=== PATIENT | male | born 1960 | race Caucasian/White ===

== ENCOUNTER 2022-05-14 13:08 | Inpatient (IN) ==
[2022-05-14] MEDS ORDERED: IOPAMIDOL 100 ML BOTTLE IV ONE (13:09)
[2022-05-14] MEDS ORDERED: 0.9 % SODIUM CHLORIDE 500 ML IV ONE (17:39)
--- NOTE | 2022-05-14 17:51 | Emergency Department Note ---
Abdominal Pain HPI General Chief Complaint: Abdominal Pain Stated Complaint: Fluid in ABD Time Seen by Provider: 05/14/22 13:44 Source: patient and family Mode of arrival: wheelchair Limitations: no limitations History of Present Illness HPI Narrative: Narrative: 62-year-old male with past medical history of liver cirrhosis, ascites and as below presents with the chronic severe 9 / 10 dull to sharp, persistent to intermittent diffuse abdominal pain for few months. Patient has had been under the care of bail attacher nurse practitioner Yesy De Guzman who has been giving him furosemide and the spironolactone intermittently and had him get a paracentesis on April 09, 2022 by radiology. Patient stated the diuretics to help him little bit and and then his started to accumulate abdominal fluid after they were stopped. He has some headache and dizziness. No chest pain, nausea vomiting, diarrhea, fever or chills Related Data Home Medications Medication Instructions Recorded Confirmed meloxicam 15 mg tablet 15 mg PO QDAY 01/14/22 05/14/22 Previous Rx's Medication Instructions Recorded spironolactone 50 mg tablet 50 mg PO QDAY #10 tabs 05/07/22 duloxetine 30 mg capsule,delayed 30 mg PO BID #60 caps 05/11/22 release methocarbamol 750 mg tablet 750 mg PO Q8H PRN pain, moderate 05/11/22 #30 tabs oxycodone 5 mg tablet 5 mg PO TID pain 28 days #84 tabs 05/11/22 quetiapine 100 mg tablet 100 mg PO HS #30 tabs 05/11/22 Allergies Allergy/AdvReac Type Severity Reaction Status Date / Time amitriptyline Allergy Unknown sleepiness, Verified 05/11/22 10:55 tunnel vision Buspirone [From BuSpar] Allergy Unknown Seizure Verified 05/11/22 10:55 caffeine Allergy Unknown Anxiety Verified 05/11/22 10:55 prednisone [PREDNISONE] Allergy Unknown HIGH BP Verified 05/11/22 10:55 Review of Systems ROS ROS Narrative: Narrative: All systems ED: reviewed and negative except as stated. PFSH Narrative Patient History Narrative: Narrative: Medical/Surgical/Family History All Active Problems (Updated 05/15/22 @ 03:43 by Remy Amaro MD) Abdominal pain (Acute) Abdominal ascites (Acute) Colitis (Acute) Thrombocytopenia (Acute) Anemia, normocytic normochromic (Acute) Portal vein thrombosis (Acute) Colitis (Acute) SBP (spontaneous bacterial peritonitis) (Acute) Abdominal ascites (Acute) Radiculopathy of lumbar region (Acute) Syncope (Acute) Abdominal ascites (Acute) ALC (alcoholic liver cirrhosis) (Chronic) Cirrhosis of liver (Acute) Lumbar radiculopathy (Chronic) Cirrhosis of liver (Chronic) Anxiety about health (Chronic) Trauma (Chronic) Acute pancreatitis (Chronic) History of alcoholism (Chronic) Seizure (Chronic) Degeneration of lumbar intervertebral disc (Chronic) Degeneration of thoracolumbar intervertebral disc (Chronic) Degeneration of cervical intervertebral disc (Chronic) BPH (benign prostatic hyperplasia) (Chronic) Vitamin D deficiency (Chronic) DM (diabetes mellitus) (Chronic) Hyperlipidemia (Chronic) Bipolar disorder (Chronic) Other low back pain (Chronic) Cervical spondylitis with radiculitis (Chronic) Lumbar spondylosis (Chronic) Esophageal reflux (Chronic) PTSD (post-traumatic stress disorder) (Chronic) Chronic hepatitis C with cirrhosis (Chronic) Asthma (Chronic) Bronchitis (Chronic) Hypertension, portal (Chronic) Fall (Chronic) Lumbar back sprain (Chronic) Back pain (Chronic) Strain of lumbar region (Chronic) Atypical chest pain (Chronic) Hypertension (Chronic) Achalasia of esophagus (Chronic) Psychosocial distress (Chronic) Abrasions of multiple sites (Chronic) Contusion of buttock (Chronic) Cellulitis of left leg (Chronic) Sleep difficulties (Chronic) Chronic pain (Chronic) Sacroiliac pain (Chronic) Anxiety and depression (Chronic) [place] (hard of hearing) (Chronic) Poor eyesight (Chronic) Restless leg syndrome, uncontrolled (Chronic) Right kidney mass (Chronic) Medical History Abdominal pain Abrasions of multiple sites Achalasia of esophagus Acute pancreatitis Alcoholic cirrhosis of liver Anemia Anxiety about health Anxiety and depression Arthritis Asthma Atypical chest pain Back pain Bipolar disorder Blind BPH (benign prostatic hyperplasia) Bronchitis Cellulitis of left leg Cervical spondylitis with radiculitis Chronic hepatitis C with cirrhosis Chronic pain Cirrhosis of liver Contusion of buttock Deaf Degeneration of cervical intervertebral disc Degeneration of lumbar intervertebral disc Degeneration of thoracolumbar intervertebral disc DM (diabetes mellitus) Esophageal reflux Fall Hematuria History of alcoholism [place] (hard of hearing) Hyperlipidemia Hypertension Hypertension, portal Low back pain radiating to lower extremity Lumbar back sprain Lumbar radiculopathy Lumbar radiculopathy Lumbar spondylosis and Spondylostenosis Other low back pain Poor eyesight Psychosocial distress PTSD (post-traumatic stress disorder) Restless leg syndrome, uncontrolled Right kidney mass Sacroiliac pain Seizure Sleep difficulties Strain of lumbar region Trauma Vitamin D deficiency Surgical History History of cataract surgery History of exploratory laparotomy History of surgery 06/22 LESI #1 lt directed L 4-5 w/out sed (06-24-11) 09/22 LESI #2, L4-5 09/29/10 w/o sed 08/21 C7-T1 GREGG #1 (w/out sed) 09/07/1008/21 L4-5 GREGG #1 w/out sed (08-17-10) History of surgery of liver (~2006) Family History Father , Age 63 Heart disease HTN (hypertension) Mother , Age 61 Malignant tumor of ovary Grandmother Cancer Other Diabetes Heart attack Kidney stone Social History Smoking Status: Current every day smoker Alcohol Intake Frequency: holiday/special occasion only Substance Use: does not use Exam Narrative Narrative: Narrative: General Limitations: no limitations General appearance: Present alert and in no apparent distress Eye Eye: Present normal appearance Respiratory Respiratory: Present wheezes Cardiovascular Cardiovascular: Present regular rate, normal rhythm and normal heart sounds Adbominal Abdominal: Present soft, distention (with fluid waves), tenderness (diffuse more lower mid quadrant) and guarding; Absent rebound Extremities Extremities: Present pedal edema; Absent cyanosis or clubbing Neurological Neurological: Present alert and oriented X3 Course Course Course Narrative: BC, CMP, troponin, amylase, lipase, lactic acid, C-reactive protein UA, CT abdomen with contrast were ordered. Paracentesis under ultrasound guidance was ordered as discussed with radiologist Dr. Weaver. CT abdomen cell/pelvis co nsistent with [facility] NAME: Josue Calvin [address] [place] [address] : 1960 [address] Service Date: 05/14/22 Report # [id number] [place] [address] Edy Weaver M.D. MR #: [id number] Cat Scan Report Signed Ordering Physician:Remy Amaro M.D. Date of Service:05/14/22 Procedure(s):CT abdomen pelvis w con History: Cirrhosis, ascites, worsening abdominal pain TECHNIQUE:666 following injection of intravenous nonionic contrast the patient was scanned during the portal venous phase from above the diaphragm through the symphysis pubis. Sagittal and coronal reformats were created. The radiation exposure was limited using dose reduction technology. FINDINGS: There is a small layering left-sided pleural effusion. There is partial atelectasis in the basilar segments left lower lobe. The effusion is smaller than that seen on the prior CT done on 04/05/22. The previously seen right-sided pleural effusion and right lower lobe atelectasis have resolved. There is a small amount of residual ascites fluid throughout the abdomen. A paracentesis had been performed immediately preceding the CT scan a 2 L of fluid was removed. There are pockets of fluid in all four quadrants. The liver has a lobulated contour and there is hypertrophy of the caudate lobe due to cirrhosis. There is no evidence of a liver mass. Moderate splenomegaly is present. There are multiple varices, predominantly around the spleen. There is a moderate-sized nonocclusive thrombus in the splenic vein. This is a new finding since 04/05/22. The portal vein is patent. There is no evidence of pancreatitis. The adrenals are normal. There is a simple cyst in the right kidney. The kidneys are otherwise normal and there is no kidney stone or hydronephrosis. The aorta is normal in caliber and there few scattered plaques along the wall of the aorta. The gallbladder is normal and there are no stones or thickening of the wall. No abscess or free intraperitoneal air are present. There is asymmetric thickening of the wall of the cecum and proximal ascending colon. The wall measures up to 1.6 cm in thickness. There are no diverticula in this region. The remainder of the colon is relatively normal without evidence of diffuse colitis. There is no diverticulitis. There is diffuse mild to moderate thickening of the wall of the small bowel in the left side of the abdomen. This is a chronic stable finding and may be due to low serum albumin. This does not appear to be due to inflammatory bowel disease. Urinary bladder is normal. 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 The pattern is highly suggestive of colitis Dr. Amaro was called with the report Interpreted and Authenticated by: Edy Weaver 05/14/22 17 17 Microchip Specialist: <Electronically signed by Edy Weaver M.D. in OV> 05/14/222032 CC: Torin Rubin PA-C; Edy Weaver M.D.; Remy Amaro M.D.~ 2 L of fluid was aspirated with paracentesis. It was turbid and was sent to lab. Patient was given Rocephin 1 g IV. Patient will be admitted to medical surgical floor as discussed with hospitalist.Dr. JAY Vital Signs Vital signs: Vital Signs Temperature 98.0 F 05/14/22 13:11 Pulse Rate 79 05/14/22 13:11 Respiratory Rate 18 05/14/22 13:11 Blood Pressure 118/69 05/14/22 13:11 Pulse Oximetry (%) 97 05/14/22 13:11 Oxygen Delivery Method 05/14/22 13:11 Temperature 97.0 F 05/14/22 22:40 Pulse Rate 71 05/14/22 22:40 Respiratory Rate 16 05/14/22 22:40 Blood Pressure 146/85 05/14/22 22:40 Pulse Oximetry (%) 97 05/14/22 22:40 Oxygen Delivery Method 05/14/22 22:40 [facility] Narrative Medical decision making narrative: Narrative: Lab Data Result diagrams: 05/14/22 17:50 Labs: Lab Results 05/14/22 05/14/22 05/14/22 Range/Units 17:50 17:50 20:38 WBC 4.7 (4.5-11.0) K/mcL RBC 3.53 L (4.63-6.08) M/mcL Hgb 10.7 L (13.7-17.5) g/dL Hct 32.8 L (40.1-51.0) % POC Hct (41-55) MCV 92.9 (80.0-100.0) fL MCH 30.3 (26.0-34.0) pg MCHC 32.6 (31.0-36.0) g/dL RDW 17.5 H (11.5-14.5) % Plt Count 58 L (140-440) K/mcL MPV 12.6 H (7.4-10.4) fL Immature Gran % (Auto) 0.2 (0.0-0.5) % Neut % (Auto) 65.4 (38.0-78.0) % Lymph % (Auto) 15.9 (15.5-49.0) % Walsh % (Auto) 9.9 (1.0-12.0) % Eos % (Auto) 7.7 H (0.0-7.0) % Baso % (Auto) 0.9 (0.0-2.0) % Lymph # (Auto) 0.74 L (1.50-4.80) K/mcL Walsh # (Auto) 0.46 (0.10-0.90) K/mcL Eos # (Auto) 0.36 (0.00-0.70) K/mcL Baso # (Auto) 0.04 (0.00-0.30) K/mcL Immature Gran # 0.01 (0.00-0.05) K/mcl Absolute Neutrophils 3.04 (1.80-8.00) K/mcL VBG Lactic Acid 1.5 (0.5-2.0) mmol/L POC Sodium (133-145) POC Potassium (3.3-5.1) POC Chloride (96-108) POC Total CO2 (22-30) POC BUN (6-20) POC Creatinine (0.6-1.2) POC Glucose (70-105) POC WB Ioniz Calcium (1.16-1.32) C-Reactive Protein 1.70 H (0.03-0.80) mg/dL Amylase 87 (28-100) U/L Lipase 116 H (7-60) U/L Urine Color Yellow Urine Appearance Clear (Clear) Urine pH 5.5 (5.0-9.0) Ur Specific [place] 1.020 (1.000-1.035) Urine Protein 30 mg/dl A (Negative) mg/dL Urine Glucose (UA) Negative (Negative) mg/dL Urine Ketones Negative (Negative) mg/dL Urine Occult Blood Moderate A (Negative) trace/mcL Urine Nitrate Negative (Negative) Urine Bilirubin Negative (Negative) mg/dL Urine Urobilinogen Normal mg/dL Ur Leukocyte Esterase Negative (Negative) /uL Urine RBC 7 H (0-3) /hpf Urine WBC 1 (0-4) /hpf Ur Squamous Epith Cells < 1 (0-4) /hpf Urine Bacteria None (0) /hpf Urine Mucus Few A (None) /hpf Ur Culture Indicated? No Peritoneal Tot Protein gm/dL Peritoneal LDH U/L Peritoneal Glucose mg/dL 05/14/22 05/14/22 05/14/22 Range/Units 21:08 21:48 21:49 WBC (4.5-11.0) K/mcL RBC (4.63-6.08) M/mcL Hgb (13.7-17.5) g/dL Hct (40.1-51.0) % POC Hct 33.0 L (41-55) MCV (80.0-100.0) fL MCH (26.0-34.0) pg MCHC (31.0-36.0) g/dL RDW (11.5-14.5) % Plt Count (140-440) K/mcL MPV (7.4-10.4) fL Immature Gran % (Auto) (0.0-0.5) % Neut % (Auto) (38.0-78.0) % Lymph % (Auto) (15.5-49.0) % Walsh % (Auto) (1.0-12.0) % Eos % (Auto) (0.0-7.0) % Baso % (Auto) (0.0-2.0) % Lymph # (Auto) (1.50-4.80) K/mcL Walsh # (Auto) (0.10-0.90) K/mcL Eos # (Auto) (0.00-0.70) K/mcL Baso # (Auto) (0.00-0.30) K/mcL Immature Gran # (0.00-0.05) K/mcl Absolute Neutrophils (1.80-8.00) K/mcL VBG Lactic Acid (0.5-2.0) mmol/L POC Sodium 140 (133-145) POC Potassium 4.0 (3.3-5.1) POC Chloride 107 (96-108) POC Total CO2 22.0 (22-30) POC BUN 35 H (6-20) POC Creatinine 0.8 0.8 (0.6-1.2) POC Glucose 107 H (70-105) POC WB Ioniz Calcium 1.15 L (1.16-1.32) C-Reactive Protein (0.03-0.80) mg/dL Amylase (28-100) U/L Lipase (7-60) U/L Urine Color Urine Appearance (Clear) Urine pH (5.0-9.0) Ur Specific [place] (1.000-1.035) Urine Protein (Negative) mg/dL Urine Glucose (UA) (Negative) mg/dL Urine Ketones (Negative) mg/dL Urine Occult Blood (Negative) trace/mcL Urine Nitrate (Negative) Urine Bilirubin (Negative) mg/dL Urine Urobilinogen mg/dL Ur Leukocyte Esterase (Negative) /uL Urine RBC (0-3) /hpf Urine WBC (0-4) /hpf Ur Squamous Epith Cells (0-4) /hpf Urine Bacteria (0) /hpf Urine Mucus (None) /hpf Ur Culture Indicated? Peritoneal Tot Protein 0.9 gm/dL Peritoneal LDH 38 U/L Peritoneal Glucose 120 mg/dL Discharge Plan Patient/Caregiver Discharge Instructions Pt seen by ACCOUNTANT PROPERTY/PA only: No Clinical Impression: Abdominal pain, Abdominal ascites, Colitis Patient Disposition: Xfer As Inpt ([facility]) Discharge Date/Time: 05/14/22 22:40 Discharge Location: [facility]
[2022-05-14 18:49] LABS: Amylase 87 U/L (28-100)
--- NOTE | 2022-05-14 19:37 | Ultrasound Report ---
History: Abdominal pain, recurrent ascites TECHNIQUE: The procedure and risks were explained and the patient consented. A moderate amount of ascites fluid was localized in the abdomen. Largest pocket was seen in the right lateral abdomen. The overlying skin was prepped with ChloraPrep then anesthetized with 1% lidocaine. Using ultrasound guidance a multi sidehole drainage catheter was inserted. 2.0 L of cloudy yellow fluid was removed. Some of the fluid was sent to laboratory for analysis. He tolerated the procedure well without complication. There is a small amount of residual fluid present at the end of the exam. IMPRESSION: Successful paracentesis removing 2 L of cloudy fluid Interpreted and Authenticated by: Edy Weaver 05/14/22
[2022-05-14] MEDS ORDERED: ALBUMIN HUMAN 12.5 GM/50 ML BAG IV ONE (20:15)
--- NOTE | 2022-05-14 20:38 | Cat Scan Report ---
History: Cirrhosis, ascites, worsening abdominal pain TECHNIQUE:666 following injection of intravenous nonionic contrast the patient was scanned during the portal venous phase from above the diaphragm through the symphysis pubis. Sagittal and coronal reformats were created. The radiation exposure was limited using dose reduction technology. FINDINGS: There is a small layering left-sided pleural effusion. There is partial atelectasis in the basilar segments left lower lobe. The effusion is smaller than that seen on the prior CT done on 04/05/22. The previously seen right-sided pleural effusion and right lower lobe atelectasis have resolved. There is a small amount of residual ascites fluid throughout the abdomen. A paracentesis had been performed immediately preceding the CT scan a 2 L of fluid was removed. There are pockets of fluid in all four quadrants. The liver has a lobulated contour and there is hypertrophy of the caudate lobe due to cirrhosis. There is no evidence of a liver mass. Moderate splenomegaly is present. There are multiple varices, predominantly around the spleen. There is a moderate-sized nonocclusive thrombus in the splenic vein. This is a new finding since 04/05/22. The portal vein is patent. There is no evidence of pancreatitis. The adrenals are normal. There is a simple cyst in the right kidney. The kidneys are otherwise normal and there is no kidney stone or hydronephrosis. The aorta is normal in caliber and there few scattered plaques along the wall of the aorta. The gallbladder is normal and there are no stones or thickening of the wall. No abscess or free intraperitoneal air are present. There is asymmetric thickening of the wall of the cecum and proximal ascending colon. The wall measures up to 1.6 cm in thickness. There are no diverticula in this region. The remainder of the colon is relatively normal without evidence of diffuse colitis. There is no diverticulitis. There is diffuse mild to moderate thickening of the wall of the small bowel in the left side of the abdomen. This is a chronic stable finding and may be due to low serum albumin. This does not appear to be due to inflammatory bowel disease. Urinary bladder is normal. 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 The pattern is highly suggestive of colitis Dr. Amaro was called with the report Interpreted and Authenticated by: Edy Weaver 05/14/22
[2022-05-14 21:16] LABS: Appearance,Urine Clear (Clear); Bilirubin,Urine Negative (Negative); Color,Urine Yellow; Culture Indicated,Urine No; Glucose,Urine (UA) Negative (Negative); Ketones,Urine Negative (Negative); Leukocyte Esterase,Urine Negative /uL (Negative); Mucus,Urine FEW /hpf; Nitrate,Urine Negative (Negative); PH,Urine 5.5 (5.0-9.0); Urine Blood Moderate ery/mcL (Negative); Urine RBC 7 /hpf (0-3); Urine Squamous Epithelial Cell < 1 /hpf (0-4); Urine WBC 1 /hpf (0-4); Urobilinogen,Urine Normal
[2022-05-14 21:54] LABS: POC Calcium, Ionized 1.15 (1.16-1.32); POC Creatinine 0.8 (0.6-1.2)
[2022-05-14] MEDS ORDERED: HYDROmorphone 0.5 MG/0.5 ML SYRINGE IV ONE (21:55)
[2022-05-14 22:08] LABS: Basophils # (Auto) 0.04 K/mcL (0.00-0.30); Basophils % (Auto) 0.9 % (0.0-2.0); Eosinophils # (Auto) 0.36 K/mcL (0.00-0.70); Eosinophils % (Auto) 7.7 % (0.0-7.0); Hematocrit 32.8 % (40.1-51.0); Hemoglobin 10.7 g/dL (13.7-17.5); Lymphocytes # (Auto) 0.74 K/mcL (1.50-4.80); Lymphocytes % (Auto) 15.9 % (15.5-49.0); Mean Cell Volume 92.9 fL (80.0-100.0); Mean Corpuscular HGB Conc 32.6 g/dL (31.0-36.0); Mean Platelet Volume 12.6 fL (7.4-10.4); Monocytes # (Auto) 0.46 K/mcL (0.10-0.90); Monocytes % (Auto) 9.9 % (1.0-12.0); Neutrophils % (Auto) 65.4 % (38.0-78.0); Platelet Count 58 K/mcL (140-440); RBC 3.53 M/mcL (4.63-6.08); Red Cell Distribution Width 17.5 % (11.5-14.5); WBC 4.7 K/mcL (4.5-11.0)
--- NOTE | 2022-05-14 22:39 | Internal Med History&Physical ---
HPI History of Present Illness Patient information: Note initiated : 05/14/22 at 10:34 pm Service Date, if different from initiated Date: [] Patient: Josue Calvin 62 y/o M admitted on for Fluid in ABD. Chief Complaint: [abdominal pain and distension ] Chief complaint: abdominal pain and distension History of present illness: Mr. Calvin is a 62 year old M history of cirrhosis secondary to hepatitis C infections as well as alcoholism with associated ascites, depression with anxiety, presenting with abdominal distention and pain. He has been diagnosed with cirrhosis for years and he has been struggling with cirrhosis for the past 9 months. Last paracentesis was done in about a month ago at the end of the March this year. He presented to our ED today for worsening abdominal pain and distention. He is complain of 9 out of 10, kicking, constant abdominal pain mostly affecting his right upper quadrant and periumbilical region. He is complaining of associated nausea, vomiting, and decreased appetite. He denies any fever or chills. He denies any constipations or diarrhea. Status post therapeutic and diagnostic paracentesis with removal of 2 L of acetic fluid earlier this evening. Vital signs within normal limits. Labs significant for lack of leukocytosis with WBC 4.7. H&H 10.7 and 32.8, respectively. Creatinine 0.8. CT of the abdomen pelvis showing evidence of cecal and ascending colon 8 colitis as well as none occlusive thrombus in the portal vein. It also shows cirrhosis with splenomegaly and varices. Constitutional Constitutional: Present weakness; Absent chills, excessive sweating, fatigue or fever(s) EENT Eyes: Absent blurry vision, change in vision, loss of vision or other visual disturbances Ears: Absent decreased hearing or tinnitus Nose, mouth and throat: Absent abnormal hearing, dry mouth, headache(s), nasal congestion or sore throat Cardiovascular Cardiovascular: Absent chest pain, chest pain at rest, edema, irregular heart rhythm or palpatations Respiratory Respiratory: Absent cough, dyspnea or wheezing Gastrointestinal Gastrointestinal: Present abdominal pain, nausea and vomiting; Absent constipation or diarrhea Musculoskeletal Musculoskeletal: Absent back pain, deformity, limited range of motion, muscle cramps, muscle weakness or numbness Integumentary Integumentary: Absent lesions, rash or wounds Neurological Neurological: Absent focal weakness, headache(s) or numbness Psychiatric Psychiatric: Absent anxiety, depression or hallucinations PFSH PFSH All Active Problems (Updated 05/14/22 @ 22:46 by Seb Baca MD) Thrombocytopenia (Acute) Anemia, normocytic normochromic (Acute) Portal vein thrombosis (Acute) Colitis (Acute) SBP (spontaneous bacterial peritonitis) (Acute) Abdominal ascites (Acute) Radiculopathy of lumbar region (Acute) Syncope (Acute) Abdominal ascites (Acute) ALC (alcoholic liver cirrhosis) (Chronic) Cirrhosis of liver (Acute) Lumbar radiculopathy (Chronic) Cirrhosis of liver (Chronic) Anxiety about health (Chronic) Trauma (Chronic) Acute pancreatitis (Chronic) History of alcoholism (Chronic) Seizure (Chronic) Degeneration of lumbar intervertebral disc (Chronic) Degeneration of thoracolumbar intervertebral disc (Chronic) Degeneration of cervical intervertebral disc (Chronic) BPH (benign prostatic hyperplasia) (Chronic) Vitamin D deficiency (Chronic) DM (diabetes mellitus) (Chronic) Hyperlipidemia (Chronic) Bipolar disorder (Chronic) Other low back pain (Chronic) Cervical spondylitis with radiculitis (Chronic) Lumbar spondylosis (Chronic) Esophageal reflux (Chronic) PTSD (post-traumatic stress disorder) (Chronic) Chronic hepatitis C with cirrhosis (Chronic) Asthma (Chronic) Bronchitis (Chronic) Hypertension, portal (Chronic) Fall (Chronic) Lumbar back sprain (Chronic) Back pain (Chronic) Strain of lumbar region (Chronic) Atypical chest pain (Chronic) Hypertension (Chronic) Achalasia of esophagus (Chronic) Psychosocial distress (Chronic) Abrasions of multiple sites (Chronic) Contusion of buttock (Chronic) Cellulitis of left leg (Chronic) Sleep difficulties (Chronic) Chronic pain (Chronic) Sacroiliac pain (Chronic) Anxiety and depression (Chronic) [place] (Chronic) Poor eyesight (Chronic) Restless leg syndrome, uncontrolled (Chronic) Right kidney mass (Chronic) Medical History Abdominal pain Abrasions of multiple sites Achalasia of esophagus Acute pancreatitis Alcoholic cirrhosis of liver Anemia Anxiety about health Anxiety and depression Arthritis Asthma Atypical chest pain Back pain Bipolar disorder Blind BPH (benign prostatic hyperplasia) Bronchitis Cellulitis of left leg Cervical spondylitis with radiculitis Chronic hepatitis C with cirrhosis Chronic pain Cirrhosis of liver Contusion of buttock [place] Degeneration of cervical intervertebral disc Degeneration of lumbar intervertebral disc Degeneration of thoracolumbar intervertebral disc DM (diabetes mellitus) Esophageal reflux Fall Hematuria History of alcoholism [place]) Hyperlipidemia Hypertension Hypertension, portal Low back pain radiating to lower extremity Lumbar back sprain Lumbar radiculopathy Lumbar radiculopathy Lumbar spondylosis and Spondylostenosis Other low back pain Poor eyesight Psychosocial distress PTSD (post-traumatic stress disorder) Restless leg syndrome, uncontrolled Right kidney mass Sacroiliac pain Seizure Sleep difficulties Strain of lumbar region Trauma Vitamin D deficiency Surgical History History of cataract surgery History of exploratory laparotomy History of surgery 06/22 LESI #1 lt directed L 4-5 w/out sed (06-24-11) 09/22 LESI #2, L4-5 09/29/10 w/o sed 08/21 C7-T1 GREGG #1 (w/out sed) 09/07/1008/21 L4-5 GREGG #1 w/out sed (08-17-10) History of surgery of liver (~2006) Family History Father , Age 63 Heart disease HTN (hypertension) Mother , Age 61 Malignant tumor of ovary Grandmother Cancer Other Diabetes Heart attack Kidney stone Social History marital status: single education level: college occupational status: unemployed 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: Current every day smoker alcohol intake frequency: holiday/special occasion only substance use type: does not use seatbelt use: sometimes MEDS/ALLERGIES Home Medications and Allergies Home Medications Medication Instructions Recorded Confirmed Type meloxicam 15 mg tablet 15 mg PO QDAY 01/14/22 05/11/22 History furosemide 20 mg tablet 20 mg PO QAM #10 tabs 05/07/22 05/11/22 Rx lactulose 10 gram/15 mL oral 30 g (45 mL) PO BID #237 mL 05/07/22 05/11/22 Rx solution spironolactone 50 mg tablet 50 mg PO QDAY #10 tabs 05/07/22 05/11/22 Rx duloxetine 30 mg capsule,delayed 30 mg PO BID #60 caps 05/11/22 05/11/22 Rx release methocarbamol 750 mg tablet 750 mg PO Q8H PRN pain, moderate 05/11/22 05/11/22 Rx #30 tabs oxycodone 5 mg tablet 5 mg PO TID pain 28 days #84 tabs 05/11/22 05/11/22 Rx quetiapine 100 mg tablet 100 mg PO HS #30 tabs 05/11/22 Rx Allergies Allergy/AdvReac Type Severity Reaction Status Date / Time amitriptyline Allergy Unknown sleepiness, Verified 05/11/22 10:55 tunnel vision Buspirone [From BuSpar] Allergy Unknown Seizure Verified 05/11/22 10:55 caffeine Allergy Unknown Anxiety Verified 05/11/22 10:55 prednisone [PREDNISONE] Allergy Unknown HIGH BP Verified 05/11/22 10:55 EXAM Constitutional Vitals: Temp Pulse Resp BP Pulse Ox O2 Del Method 36.7 C 76 18 126/64 100 05/14/22 13:11 05/14/22 22:01 05/14/22 13:11 05/14/22 22:01 05/14/22 22:01 05/14/22 13:11 General appearance: cooperative, disheveled and no acute distress Head Head exam: Present atraumatic and normocephalic Eye Eye exam: Present EOMI and PERRL ENT ENT exam: Present mucous membranes moist, normal exam and normal external ear exam Neck Neck exam: Present normal inspection; Absent lymphadenopathy, tenderness or thyromegaly Respiratory Respiratory exam: Absent accessory muscle use, respiratory distress or wheezes Cardiovascular Cardiovascular exam: Present normal rate and rhythm; Absent JVD GI/Abdominal GI/Abdominal exam: Present normal bowel sounds, soft, distended, organomegaly and tenderness Additional comments: Caput medusae spider angiomata fluid wave tenderness to palpations distended abdomen Rectal Rectal exam: Present deferred Extremities Exam Extremities exam: Present full ROM, normal capillary refill and normal inspection; Absent tenderness Neurological Exam Neurological exam: Present alert, CN II-XII intact and oriented X3; Absent motor sensory deficit Psychiatric Psychiatric exam: Present normal affect and normal mood; Absent anxious or depressed Skin Skin exam: Present dry and intact Additional comments: Spider angiomata on face chest wall and abdominal wall DATA Data Completed and Pending Labs: Labs from last 24 hours 05/14/22 05/14/22 05/14/22 21:49 21:48 21:08 WBC RBC Hgb Hct POC Hct 33.0 L MCV MCH MCHC RDW Plt Count MPV Immature Gran % (Auto) Neut % (Auto) Lymph % (Auto) [place] % (Auto) Eos % (Auto) Baso % (Auto) Lymph # (Auto) [place] # (Auto) Eos # (Auto) Baso # (Auto) Immature Gran # Absolute Neutrophils VBG Lactic Acid POC Sodium 140 POC Potassium 4.0 POC Chloride 107 POC Total CO2 22.0 POC BUN 35 H POC Creatinine 0.8 0.8 POC Glucose 107 H POC WB Ioniz Calcium 1.15 L C-Reactive Protein Amylase Lipase Urine Color Urine Appearance Urine pH Ur Specific [place] Urine Protein Urine Glucose (UA) Urine Ketones Urine Occult Blood Urine Nitrate Urine Bilirubin Urine Urobilinogen Ur Leukocyte Esterase Urine RBC Urine WBC Ur Squamous Epith Cells Urine Bacteria Urine Mucus Ur Culture Indicated? Peritoneal Source Pending Peritoneal Color Pending Peritoneal Appearance Pending Peritoneal RBC Pending Periton Nuc Cells Pending Periton Neutrophils Pending Periton Lymphocytes Pending Peritoneal Monocytes Pending 05/14/22 05/14/22 05/14/22 20:38 17:50 17:50 WBC 4.7 RBC 3.53 L Hgb 10.7 L Hct 32.8 L POC Hct MCV 92.9 MCH 30.3 MCHC 32.6 RDW 17.5 H Plt Count 58 L MPV 12.6 H Immature Gran % (Auto) 0.2 Neut % (Auto) 65.4 Lymph % (Auto) 15.9 [place] % (Auto) 9.9 Eos % (Auto) 7.7 H Baso % (Auto) 0.9 Lymph # (Auto) 0.74 L [place] # (Auto) 0.46 Eos # (Auto) 0.36 Baso # (Auto) 0.04 Immature Gran # 0.01 Absolute Neutrophils 3.04 VBG Lactic Acid 1.5 POC Sodium POC Potassium POC Chloride POC Total CO2 POC BUN POC Creatinine POC Glucose POC WB Ioniz Calcium C-Reactive Protein 1.70 H Amylase 87 Lipase 116 H Urine Color Yellow Urine Appearance Clear Urine pH 5.5 Ur Specific [place] 1.020 Urine Protein 30 mg/dl A Urine Glucose (UA) Negative Urine Ketones Negative Urine Occult Blood Moderate A Urine Nitrate Negative Urine Bilirubin Negative Urine Urobilinogen Normal Ur Leukocyte Esterase Negative Urine RBC 7 H Urine WBC 1 Ur Squamous Epith Cells < 1 Urine Bacteria None Urine Mucus Few A Ur Culture Indicated? No Peritoneal Source Peritoneal Color Peritoneal Appearance Peritoneal RBC Periton Nuc Cells Periton Neutrophils Periton Lymphocytes Peritoneal Monocytes A/P Assessment and plan (1) SBP (spontaneous bacterial peritonitis): Status: Acute (2) Colitis: Status: Acute (3) Portal vein thrombosis: Status: Acute (4) Anxiety and depression: Status: Chronic (5) Anemia, normocytic normochromic: Status: Acute (6) Thrombocytopenia: Status: Acute Narrative A/P Narrative: Assessment and Plans: 1. Ascending colitis: Inpatient med surg Clear liquid diet Serial lactic acid Blood culture cbc w/ auto diff in the morning Rocephin Flagyl Tylenol Oxycodone Morphine IV Zofran IV 2. Viral and alcoholic cirrhosis with associated ascites, rule out spontaneous bacterial peritonitis: Status post therapeutic and diagnostic paracentesis with removal of 2 L of acetic fluid Fluid analysis including gram stain with culture, cell count and differential, albumin, protein, LDH, glucose Rocephin Tylenol Oxycodone Morphine IV Zofran IV Protonix Propranolol Lactulose MELD-Na scoring, will check INR 3. Nonocclusive portal vein thrombosis: Therapeutic Lovenox, will transition to oral anticoagulant later 4. Normocytic normochromic anemia and thrombocytopenia: Associated with cirrhosis CBC in the morning to trend H&H and platelet count, respectively 5. depression and anxiety: Duloxetine Quetiapine GI ppx: Protonix PO DVT ppx: Therapeutic Lovenox, will transition to oral anticoagulant later Code status: Full Prognosis: guarded Disposition: inpatient med surg; PT Time Spent With Patient Time: Total time spent is greater than 50% in coordination of care (as documented) at patient's floor/unit and/or counseling patient: Total time spent with greater than 50% in coordination of care (as documented) at patient's floor/unit and/or counseling patient:: 50 - 70 minutes
[2022-05-14] MEDS ORDERED: IPRATROPIUM/ALBUTEROL 3 ML AMPUL.NEB NEB PRN (22:46)
[2022-05-14] MEDS ORDERED: cefTRIAXone 1 GM in DEXTROSE 5% IN WATER 50 ML IV SCH (22:46)
[2022-05-14] MEDS ORDERED: metroNIDAZOLE 500 MG/100 ML BAG IV SCH (22:46)
[2022-05-14] MEDS ORDERED: ONDANSETRON 4 MG/2 ML VIAL IV PRN (22:46)
[2022-05-14] MEDS ORDERED: ACETAMINOPHEN 325 MG TABLET PO PRN (22:46)
[2022-05-14 23:20] LABS: POC INR 1.4 (0.8-1.2); POC Pro Time 16.3 (11.9-14.5)
[2022-05-14] MEDS: QUEtiapine 100 MG TABLET PO SCH (23:51)
[2022-05-14] MEDS ORDERED: cefTRIAXone 1 GM VIAL ONE (23:51)
[2022-05-14] MEDS: traZODone HCL 50 MG TABLET PO PRN (23:51)
[2022-05-14] MEDS ORDERED: metroNIDAZOLE 100 ML IV ONE (23:52)
[2022-05-14] MEDS ORDERED: QUEtiapine 100 MG TABLET ONE (23:57)
[2022-05-14] MEDS ORDERED: traZODone HCL 50 MG TABLET ONE (23:57)
[2022-05-15] MEDS: morphine 4 MG/ML VIAL IV PRN ×3 (00:01→18:34)
[2022-05-15] MEDS ORDERED: morphine 4 MG/ML VIAL ONE (00:11)
[2022-05-15 01:55] LABS: Glucose,Peritoneal Fluid 120 mg/dL; LDH,Peritoneal Fluid 38 U/L; Total Protein,Peritoneal Fluid 0.9 gm/dL
[2022-05-15] MEDS: 0.9 % SODIUM CHLORIDE 10 ML SYRINGE IV SCH ×3 (05:25→21:36)
[2022-05-15 06:47] LABS: Basophils # (Auto) 0.03 K/mcL (0.00-0.30); Basophils % (Auto) 0.9 % (0.0-2.0); Eosinophils # (Auto) 0.33 K/mcL (0.00-0.70); Eosinophils % (Auto) 10.1 % (0.0-7.0); Hematocrit 28.9 % (40.1-51.0); Hemoglobin 9.7 g/dL (13.7-17.5); Lymphocytes # (Auto) 0.84 K/mcL (1.50-4.80); Lymphocytes % (Auto) 25.8 % (15.5-49.0); Mean Cell Volume 91.7 fL (80.0-100.0); Mean Corpuscular HGB Conc 33.6 g/dL (31.0-36.0); Mean Platelet Volume 11.2 fL (7.4-10.4); Monocytes % (Auto) 9.2 % (1.0-12.0); Neutrophils % (Auto) 53.7 % (38.0-78.0); Platelet Count 51 K/mcL (140-440); RBC 3.15 M/mcL (4.63-6.08); Red Cell Distribution Width 17.2 % (11.5-14.5); WBC 3.3 K/mcL (4.5-11.0)
[2022-05-15 07:02] LABS: ALT/SGPT 29 U/L (<40); AST/SGOT 66 U/L (<40); Albumin 2.2 gm/dL (3.2-5.2); Albumin/Globulin Ratio 0.6 (1.0-2.3); Alkaline Phosphatase 104 U/L (39-117); Bilirubin,Total 1.4 mg/dL (0.1-1.0); Blood Urea Nitrogen 24 mg/dL (8-23); Calcium 8.2 mg/dL (8.6-10.4); Carbon Dioxide 21 mmol/L (22-30); Chloride 112 mmol/L (96-108); Globulin 3.4 gm/dL (2.2-3.7); Glomerular Filtration Rate 102; Glucose 95 mg/dL (70-105); Phosphorous 3.1 mg/dL (2.5-4.5)
[2022-05-15] MEDS ORDERED: ENOXAPARIN 40 MG/0.4 ML SYRINGE SQ SCH (09:00)
[2022-05-15] MEDS ORDERED: PROPRANOLOL 10 MG TABLET PO SCH (09:00)
[2022-05-15] MEDS: MELOXICAM 7.5 MG TABLET PO SCH (09:12)
[2022-05-15] MEDS: DOCUSATE SODIUM 100 MG CAPSULE PO SCH ×2 (09:13→21:30)
[2022-05-15] MEDS: DULoxetine 30 MG CAPSULE PO SCH ×2 (09:13→21:30)
[2022-05-15] MEDS: LACTULOSE 20 GM/30 ML ORAL.SOL PO SCH ×2 (09:13→21:31)
[2022-05-15] MEDS: metroNIDAZOLE 500 MG/100 ML BAG IV SCH ×2 (09:13→21:26)
[2022-05-15] MEDS: PANTOPRAZOLE 40 MG TABLET PO SCH (09:13)
[2022-05-15] MEDS: SPIRONOLACTONE 25 MG TABLET PO SCH (09:13)
[2022-05-15] MEDS: ENOXAPARIN 100 MG/ML SYRINGE SQ SCH ×2 (10:08→21:34)
[2022-05-15] MEDS: FUROSEMIDE 20 MG TABLET PO SCH (10:08)
[2022-05-15] MEDS: METHOCARBAMOL 750 MG TABLET PO PRN (10:08)
--- NOTE | 2022-05-15 10:22 | Internal Med Progress Note ---
SUBJECTIVE Subjective Patient information: Note initiated : 05/15/22 at 10:19 am Service Date, if different from initiated Date: [] Patient: Josue Calvin 62 y/o M admitted on 05/14/22 for Fluid in ABD. Chief Complaint: [] Interval history: Mr. Calvin is a 62 year old M history of cirrhosis secondary to hepatitis C infections as well as alcoholism with associated ascites, depression with anxiety, presenting with abdominal distention and pain. He has been diagnosed with cirrhosis for years and he has been struggling with cirrhosis for the past 9 months. Last paracentesis was done in about a month ago at the end of the March this year. He presented to our ED today for worsening abdominal pain and distention. He is complain of 9 out of 10, kicking, constant abdominal pain mostly affecting his right upper quadrant and periumbilical region. He is complaining of associated nausea, vomiting, and decreased appetite. He denies any fever or chills. He denies any constipations or diarrhea. Status post therapeutic and diagnostic paracentesis with removal of 2 L of acetic fluid earlier this evening. Vital signs within normal limits. Labs significant for lack of leukocytosis with WBC 4.7. H&H 10.7 and 32.8, respectively. Creatinine 0.8. CT of the abdomen pelvis showing evidence of cecal and ascending colon 8 colitis as well as none occlusive thrombus in the portal vein. It also shows cirrhosis with splenomegaly and varices. 05/15: Afebrile overnight. WBC 3.3 this morning. H&H 9.7 and 28.9, respectively. Pending ascites fluid analysis. Blood culture and ascitic fluid cultures no growth today. Patient is coming of 8 out of 10 kicking constant pain in all abdominal quadrants. He is complaining of nausea denies any vomiting. Denies constipation or diarrhea. Tolerating clear liquid diet. Continue clear liquid diet and will advance when patient feels ready. Continue IV antibiotics with Rocephin and Flagyl. Continue therapeutic dose of Lovenox for portal vein fibrosis. Constitutional Vitals: Vital Signs Temp Pulse Resp BP Pulse Ox O2 Del Method 36.6 C 66 18 102/52 96 05/15/22 08:00 05/15/22 08:00 05/15/22 08:00 05/15/22 08:00 05/15/22 08:00 05/15/22 08:00 Period Temp Pulse Resp BP Sys/Hodges Pulse Ox O2 Del Method O2 Flow Rate Last 24 Hr 36.1 C-36.7 C 66-79 16-18 92-179/52-100 93-100 Room Air-Room Air Intake and Output 05/14/22 05/15/22 05/15/22 21:59 05:59 13:59 Intake Total 550 150 Output Total 600 200 Balance 550 -450 -200 Weight 90.31 kg Intake & Output: Intake & Output 05/14/22 05/15/22 05/15/22 21:59 05:59 13:59 Intake Total 550 150 Output Total 600 200 Balance 550 -450 -200 Weight 90.31 kg Intake: IV 550 150 Sodium Chloride 0.9% 500 ml @ 500 Wide Open IV BOLUS ONE Rx#: [id number] Rocephin 1 gm In Dextrose 5% in 50 Water 50 ml @ 100 mls/hr IV Q24H [facility] Rx#:[id number] Output: Void Amount 600 200 Other: Urine Appearance Small Blood Clots Hematuria Urine Color Dark Yellow Dark Yellow Head Head exam: Present atraumatic and normal inspection Eye Eye exam: Present normal appearance ENT ENT exam: Present mucous membranes moist, normal exam and normal external ear exam Neck Neck exam: Present normal inspection Respiratory Respiratory exam: Present normal respiratory exam Cardiovascular Cardiovascular exam: Present normal rate and rhythm GI/Abdominal GI/Abdominal exam: Present normal bowel sounds Additional comments: Caput medusae spider angiomata fluid wave tenderness to palpations distended abdomen Rectal Back Exam Back exam: Present normal inspection Neurological Exam Neurological exam: Present alert and oriented X3 Skin Skin exam: Present intact and warm Additional comments: Spider angiomata on face chest wall and abdominal wall OBJ DATA Labs CBC & Chem 7: 05/15/22 05:37 05/15/22 05:37 Labs: Abnormal Lab Results 05/15/22 05/15/22 05/14/22 05:37 05:37 23:16 WBC 3.3 L RBC 3.15 L Hgb 9.7 L Hct 28.9 L POC Hct RDW 17.2 H Plt Count 51 L MPV 11.2 H Eos % (Auto) 10.1 H Lymph # (Auto) 0.84 L Absolute Neutrophils 1.75 L POC PT 16.3 H POC INR 1.4 H Chloride 112 H Carbon Dioxide 21 L Anion Gap 6.0 L POC BUN BUN 24 H POC Glucose Calcium 8.2 L POC WB Ioniz Calcium Total Bilirubin 1.4 H AST 66 H C-Reactive Protein Total Protein 5.6 L Albumin 2.2 L Albumin/Globulin Ratio 0.6 L Lipase Urine Protein Urine Occult Blood Urine RBC Urine Mucus 05/14/22 05/14/22 05/14/22 21:49 20:38 17:50 WBC RBC 3.53 L Hgb 10.7 L Hct 32.8 L POC Hct 33.0 L RDW 17.5 H Plt Count 58 L MPV 12.6 H Eos % (Auto) 7.7 H Lymph # (Auto) 0.74 L Absolute Neutrophils POC PT POC INR Chloride Carbon Dioxide Anion Gap POC BUN 35 H BUN POC Glucose 107 H Calcium POC WB Ioniz Calcium 1.15 L Total Bilirubin AST C-Reactive Protein Total Protein Albumin Albumin/Globulin Ratio Lipase Urine Protein 30 mg/dl A Urine Occult Blood Moderate A Urine RBC 7 H Urine Mucus Few A 05/14/22 17:50 WBC RBC Hgb Hct POC Hct RDW Plt Count MPV Eos % (Auto) Lymph # (Auto) Absolute Neutrophils POC PT POC INR Chloride Carbon Dioxide Anion Gap POC BUN BUN POC Glucose Calcium POC WB Ioniz Calcium Total Bilirubin AST C-Reactive Protein 1.70 H Total Protein Albumin Albumin/Globulin Ratio Lipase 116 H Urine Protein Urine Occult Blood Urine RBC Urine Mucus Meds: Medications Acetaminophen (Acetaminophen 325 Mg Tablet) 650 mg PO Q6HP PRN; Protocol PRN Reason: Per Pain Protocol/Fever > 101 Albuterol/Ipratropium (Ipratropium/Albuterol 3 Ml Ampul.Neb) 3 ml NEB Q4HRT PRN PRN Reason: Wheezing Ceftriaxone Sodium (Ceftriaxone 1 Gm Vial) 1 gm IV Q24H [facility] Docusate Sodium (Docusate Sodium 100 Mg Capsule) 100 mg PO BID [facility] Last Admin: 05/15/22 09:13 Dose: 100 mg Duloxetine HCl (Duloxetine 30 Mg Capsule) 30 mg PO BID [facility] Last Admin: 05/15/22 09:13 Dose: 30 mg Enoxaparin Sodium (Enoxaparin 100 Mg/Ml Syringe) 90 mg SQ BID [facility] Last Admin: 05/15/22 10:08 Dose: 90 mg Furosemide (Furosemide 20 Mg Tablet) 20 mg PO QAM [facility] Last Admin: 05/15/22 10:08 Dose: 20 mg Metronidazole (Flagyl) 500 mg in 100 mls @ 100 mls/hr IV Q12H [facility]; Protocol Last Admin: 05/15/22 09:13 Dose: 100 mls/hr Lactulose (Lactulose 20 Gm/30 Ml Oral.Sharon) 30 gm PO BID [facility] Last Admin: 05/15/22 09:13 Dose: 30 gm Meloxicam (Meloxicam 7.5 Mg Tablet) 15 mg PO DAILY [facility] Last Admin: 05/15/22 09:12 Dose: 15 mg Methocarbamol (Methocarbamol 750 Mg Tablet) 750 mg PO Q8H PRN PRN Reason: pain, moderate Last Admin: 05/15/22 10:08 Dose: 750 mg Morphine Sulfate (Morphine 4 Mg/Ml Vial) 4 mg IV Q4HP PRN; Protocol PRN Reason: Per Pain Protocol Last Admin: 05/15/22 00:01 Dose: 4 mg Ondansetron HCl (Ondansetron 4 Mg/2 Ml Vial) 4 mg IV Q6HP PRN PRN Reason: Nausea And Vomiting Oxycodone HCl (Oxycodone Hcl 5 Mg Tablet) 5 mg PO Q4HP PRN; Protocol PRN Reason: Per Pain Protocol Pantoprazole Sodium (Pantoprazole 40 Mg Tablet) 40 mg PO QAMAC [facility] Last Admin: 05/15/22 09:13 Dose: 40 mg Propranolol HCl (Propranolol 10 Mg Tablet) 10 mg PO TID [facility] Last Admin: 05/15/22 09:13 Dose: 10 mg Quetiapine Fumarate (Quetiapine 100 Mg Tablet) 100 mg PO [facility] Last Admin: 05/14/22 23:51 Dose: 100 mg Senna (Sennosides 1 Tablet) 2 tab PO [facility] Sodium Chloride (0.9 % Sodium Chloride 10 Ml Syringe) 10 ml IV Q8 [facility] Last Admin: 05/15/22 05:25 Dose: Not Given Spironolactone (Spironolactone 25 Mg Tablet) 50 mg PO DAILY [facility] Last Admin: 05/15/22 09:13 Dose: 50 mg Trazodone HCl (Trazodone Hcl 50 Mg Tablet) 25 mg PO HSP PRN PRN Reason: Insomnia Last Admin: 05/14/22 23:51 Dose: 25 mg A/P Assessment and plan (1) SBP (spontaneous bacterial peritonitis): Status: Acute (2) Colitis: Status: Acute (3) Portal vein thrombosis: Status: Acute (4) Anxiety and depression: Status: Chronic (5) Anemia, normocytic normochromic: Status: Acute (6) Thrombocytopenia: Status: Acute Narrative A/P Narrative: Assessment and Plans: 1. Ascending colitis: Inpatient med surg Clear liquid diet Serial lactic acid Blood culture, no growth to date cbc w/ auto diff in the morning Rocephin Flagyl Tylenol Oxycodone Morphine IV Zofran IV 2. Viral and alcoholic cirrhosis with associated ascites, rule out spontaneous bacterial peritonitis: Status post therapeutic and diagnostic paracentesis with removal of 2 L of gayla tic fluid Fluid analysis including gram stain with culture, cell count and differential, albumin, protein, LDH, glucose Rocephin Tylenol Oxycodone Morphine IV Zofran IV Protonix Propranolol Lactulose MELD-Na scoring, will check INR 3. Nonocclusive portal vein thrombosis: Therapeutic Lovenox, will transition to oral anticoagulant later 4. Normocytic normochromic anemia and thrombocytopenia: Associated with cirrhosis CBC in the morning to trend H&H and platelet count, respectively 5. depression and anxiety: Duloxetine Quetiapine GI ppx: Protonix PO DVT ppx: Therapeutic Lovenox, will transition to oral anticoagulant later Code status: Full Prognosis: guarded Disposition: inpatient med surg; PT Time Spent With Patient Time: Total time spent is greater than 50% in coordination of care (as documented) at patient's floor/unit and/or counseling patient: Total time spent with greater than 50% in coordination of care (as documented) at patient's floor/unit and/or counseling patient:: 25 - 35 minutes QUALITY VTE Deep Vein Thrombosis/Pulmonary Embolism Present on Admission: No
--- NOTE | 2022-05-15 12:12 | Internal Med Progress Note ---
SUBJECTIVE Subjective Patient information: Note initiated : 05/15/22 at 12:10 pm Service Date, if different from initiated Date: [] Patient: Josue Calvin 62 y/o M admitted on 05/14/22 for Fluid in ABD. Chief Complaint: [] Interval history: Mr. Calvin is a 62 year old M history of cirrhosis secondary to hepatitis C infections as well as alcoholism with associated ascites, depression with anxiety, presenting with abdominal distention and pain. He has been diagnosed with cirrhosis for years and he has been struggling with cirrhosis for the past 9 months. Last paracentesis was done in about a month ago at the end of the March this year. He presented to our ED today for worsening abdominal pain and distention. He is complain of 9 out of 10, kicking, constant abdominal pain mostly affecting his right upper quadrant and periumbilical region. He is complaining of associated nausea, vomiting, and decreased appetite. He denies any fever or chills. He denies any constipations or diarrhea. Status post therapeutic and diagnostic paracentesis with removal of 2 L of acetic fluid earlier this evening. Vital signs within normal limits. Labs significant for lack of leukocytosis with WBC 4.7. H&H 10.7 and 32.8, respectively. Creatinine 0.8. CT of the abdomen pelvis showing evidence of cecal and ascending colon 8 colitis as well as none occlusive thrombus in the portal vein. It also shows cirrhosis with splenomegaly and varices. 05/15: Afebrile overnight. WBC 3.3 this morning. H&H 9.7 and 28.9, respectively. Pending ascites fluid analysis. Blood culture and ascitic fluid cultures no growth today. Patient is coming of 8 out of 10 kicking constant pain in all abdominal quadrants. He is complaining of nausea denies any vomiting. Denies constipation or diarrhea. Tolerating clear liquid diet. Continue clear liquid diet and will advance when patient feels ready. Continue IV antibiotics with Rocephin and Flagyl. Continue therapeutic dose of Lovenox for portal vein fibrosis. 05/16: Abdominal pain present but the patient says this has improved since admission. Abdominal distention noted, may need another paracentesis soon. Recent ascites fluid analysis not yet complete, continues on ceftriaxone and Flagyl. Head: Atraumatic, normal inspection. Eyes: normal appearance, no scleral icterus. Neck: full ROM Respiratory: no respiratory distress. Cardiovascular: normal rate and rhythm, S1, S2. GI/Abdominal: Distended, mild diffuse tenderness, no guarding. Extremities: full range of motion, nontender. Neurological: CN II-XII intact, intact motor, intact sensation. Psychiatric: normal mood. Skin: warm, normal color Constitutional Vitals: Vital Signs Temp Pulse Resp BP Pulse Ox O2 Del Method 98.0 F 56 L 16 97/67 95 05/15/22 11:41 05/15/22 11:41 05/15/22 11:41 05/15/22 11:41 05/15/22 11:41 05/15/22 11:41 Period Temp Pulse Resp BP Sys/Hodges Pulse Ox O2 Del Method O2 Flow Rate Last 24 Hr 97.0 F-98.0 F 56-79 16-18 92-179/52-100 93-100 Room Air-Room Air Intake and Output 05/14/22 05/15/22 05/15/22 21:59 05:59 13:59 Intake Total 550 150 100 Output Total 600 500 Balance 550 -450 -400 Weight 90.31 kg Intake & Output: Intake & Output 05/14/22 05/15/22 05/15/22 21:59 05:59 13:59 Intake Total 550 150 100 Output Total 600 500 Balance 550 -450 -400 Weight 90.31 kg Intake: IV 550 150 100 Sodium Chloride 0.9% 500 ml @ 500 Wide Open IV [facility] Rx#: [id number] Rocephin 1 gm In Dextrose 5% in 50 Water 50 ml @ 100 mls/hr IV Q24H [facility] Rx#:[id number] Output: Void Amount 600 500 Other: Urine Appearance Small Blood Clots Hematuria Urine Color Dark Yellow Dark Yellow Stool Size Moderate Stool Consistency Normal for Patient OBJ DATA Labs CBC & Chem 7: 05/15/22 05:37 05/15/22 05:37 Labs: Abnormal Lab Results 05/15/22 05/15/22 05/14/22 05:37 05:37 23:16 WBC 3.3 L RBC 3.15 L Hgb 9.7 L Hct 28.9 L POC Hct RDW 17.2 H Plt Count 51 L MPV 11.2 H Eos % (Auto) 10.1 H Lymph # (Auto) 0.84 L Absolute Neutrophils 1.75 L POC PT 16.3 H POC INR 1.4 H Chloride 112 H Carbon Dioxide 21 L Anion Gap 6.0 L POC BUN BUN 24 H POC Glucose Calcium 8.2 L POC WB Ioniz Calcium Total Bilirubin 1.4 H AST 66 H C-Reactive Protein Total Protein 5.6 L Albumin 2.2 L Albumin/Globulin Ratio 0.6 L Lipase Urine Protein Urine Occult Blood Urine RBC Urine Mucus 05/14/22 05/14/22 05/14/22 21:49 20:38 17:50 WBC RBC 3.53 L Hgb 10.7 L Hct 32.8 L POC Hct 33.0 L RDW 17.5 H Plt Count 58 L MPV 12.6 H Eos % (Auto) 7.7 H Lymph # (Auto) 0.74 L Absolute Neutrophils POC PT POC INR Chloride Carbon Dioxide Anion Gap POC BUN 35 H BUN POC Glucose 107 H Calcium POC WB Ioniz Calcium 1.15 L Total Bilirubin AST C-Reactive Protein Total Protein Albumin Albumin/Globulin Ratio Lipase Urine Protein 30 mg/dl A Urine Occult Blood Moderate A Urine RBC 7 H Urine Mucus Few A 05/14/22 17:50 WBC RBC Hgb Hct POC Hct RDW Plt Count MPV Eos % (Auto) Lymph # (Auto) Absolute Neutrophils POC PT POC INR Chloride Carbon Dioxide Anion Gap POC BUN BUN POC Glucose Calcium POC WB Ioniz Calcium Total Bilirubin AST C-Reactive Protein 1.70 H Total Protein Albumin Albumin/Globulin Ratio Lipase 116 H Urine Protein Urine Occult Blood Urine RBC Urine Mucus Meds: Medications Acetaminophen (Acetaminophen 325 Mg Tablet) 650 mg PO Q6HP PRN; Protocol PRN Reason: Per Pain Protocol/Fever > 101 Albuterol/Ipratropium (Ipratropium/Albuterol 3 Ml Ampul.Neb) 3 ml NEB Q4HRT PRN PRN Reason: Wheezing Ceftriaxone Sodium (Ceftriaxone 1 Gm Vial) 1 gm IV Q24H [facility] [place] Docusate Sodium (Docusate Sodium 100 Mg Capsule) 100 mg PO BID [facility] Last Admin: 05/15/22 09:13 Dose: 100 mg Duloxetine HCl (Duloxetine 30 Mg Capsule) 30 mg PO BID [facility] [place] Last Admin: 05/15/22 09:13 Dose: 30 mg Enoxaparin Sodium (Enoxaparin 100 Mg/Ml Syringe) 90 mg SQ BID [facility] [place] Last Admin: 05/15/22 10:08 Dose: 90 mg Furosemide (Furosemide 20 Mg Tablet) 20 mg PO QAM [facility] [place] Last Admin: 05/15/22 10:08 Dose: 20 mg Metronidazole (Flagyl) 500 mg in 100 mls @ 100 mls/hr IV Q12H [facility] [place]; Protocol Last Infusion: 05/15/22 10:25 Dose: Infused Lactulose (Lactulose 20 Gm/30 Ml Oral.Sharon) 30 gm PO BID [facility] [place] Last Admin: 05/15/22 09:13 Dose: 30 gm Meloxicam (Meloxicam 7.5 Mg Tablet) 15 mg PO DAILY [facility] [place] Last Admin: 05/15/22 09:12 Dose: 15 mg Methocarbamol (Methocarbamol 750 Mg Tablet) 750 mg PO Q8H PRN PRN Reason: pain, moderate Last Admin: 05/15/22 10:08 Dose: 750 mg Morphine Sulfate (Morphine 4 Mg/Ml Vial) 4 mg IV Q4HP PRN; Protocol PRN Reason: Per Pain Protocol Last Admin: 05/15/22 00:01 Dose: 4 mg Ondansetron HCl (Ondansetron 4 Mg/2 Ml Vial) 4 mg IV Q6HP PRN PRN Reason: Nausea And Vomiting Oxycodone HCl (Oxycodone Hcl 5 Mg Tablet) 5 mg PO Q4HP PRN; Protocol PRN Reason: Per Pain Protocol Pantoprazole Sodium (Pantoprazole 40 Mg Tablet) 40 mg PO QAMAC [facility] [place] Last Admin: 05/15/22 09:13 Dose: 40 mg Propranolol HCl (Propranolol 10 Mg Tablet) 10 mg PO TID [facility] [place] Last Admin: 05/15/22 09:13 Dose: 10 mg Quetiapine Fumarate (Quetiapine 100 Mg Tablet) 100 mg PO [facility] Last Admin: 05/14/22 23:51 Dose: 100 mg Senna (Sennosides 1 Tablet) 2 tab PO [facility] Sodium Chloride (0.9 % Sodium Chloride 10 Ml Syringe) 10 ml IV Q8 [facility] Last Admin: 05/15/22 05:25 Dose: Not Given Spironolactone (Spironolactone 25 Mg Tablet) 50 mg PO DAILY [facility] [place] Last Admin: 05/15/22 09:13 Dose: 50 mg Trazodone HCl (Trazodone Hcl 50 Mg Tablet) 25 mg PO HSP PRN PRN Reason: Insomnia Last Admin: 05/14/22 23:51 Dose: 25 mg A/P Narrative A/P Narrative: Assessment: 62-year-old male with a history of liver cirrhosis, chronic hepatitis C infection, alcohol use disorder, depression, anxiety admitted for abdominal distention and pain. CT abdomen pelvis revealed evidence of colitis of the ascending colon and cecum as well as nonocclusive thrombus in the portal vein. Patient underwent a paracentesis, awaiting ascites fluid analysis. The patient is currently on antibiotics for possible bacterial peritonitis as well as colitis. Patient is also on Lovenox for anticoagulation for the portal vein thrombus. #Probable colitis of ascending colon and cecum #Possible bacterial peritonitis #Nonocclusive portal vein thrombus #Decompensated liver cirrhosis #Thrombocytopenia secondary to liver cirrhosis #Normocytic anemia #Chronic hepatitis C infection #History of alcohol use disorder #Depression #Anxiety Plan -Continue ceftriaxone and Flagyl. -Discontinue propranolol due to concern for bacterial peritonitis. -Await ascites fluid labs and culture. -Follow blood cultures. -Monitor renal function, CBC. -Check ammonia level. -Consider repeat CT scan if abdominal pain does not improve soon. -Paracentesis as needed. -Lovenox for portal vein thrombus anticoagulation, likely transition to oral anticoagulation soon. -Increase Lasix to 40 mg daily and spironolactone to 100 mg daily. -Continue Cymbalta, Protonix, Seroquel, trazodone at bedtime. -Analgesics as needed. -Clear liquid diet for now. -PT following. -DVT prophylaxis: On therapeutic Lovenox. -CODE STATUS: Full -Disposition: Home when stable. Likely 6 months of anticoagulation for portal vein thrombus. Follow-up with GI after discharge for management of decompensated liver cirrhosis, portal vein thrombosis and possible colonoscopy if not recently performed. Time Spent With Patient Time: Total time spent is greater than 50% in coordination of care (as documented) at patient's floor/unit and/or counseling patient: QUALITY VTE Deep Vein Thrombosis/Pulmonary Embolism Present on Admission: No
[2022-05-15] MEDS: cefTRIAXone 1 GM VIAL IV SCH (15:05)
[2022-05-15] MEDS: QUEtiapine 100 MG TABLET PO SCH (21:30)
[2022-05-15] MEDS: SENNOSIDES 1 TABLET PO SCH (21:30)
[2022-05-15] MEDS: traZODone HCL 50 MG TABLET PO PRN (21:39)
[2022-05-15] MEDS: oxyCODONE HCL 5 MG TABLET PO PRN (21:41)
[2022-05-16] MEDS: SPIRONOLACTONE 25 MG TABLET PO SCH (08:03)
[2022-05-16] MEDS: MELOXICAM 7.5 MG TABLET PO SCH (08:04)
[2022-05-16] MEDS: cefTRIAXone 1 GM VIAL IV SCH (08:04)
[2022-05-16] MEDS: DOCUSATE SODIUM 100 MG CAPSULE PO SCH ×3 (08:04→21:12)
[2022-05-16] MEDS: ENOXAPARIN 100 MG/ML SYRINGE SQ SCH ×2 (08:04→21:11)
[2022-05-16] MEDS: metroNIDAZOLE 500 MG/100 ML BAG IV SCH ×3 (08:05→21:11)
[2022-05-16] MEDS: 0.9 % SODIUM CHLORIDE 10 ML SYRINGE IV SCH ×3 (08:06→21:12)
[2022-05-16] MEDS: LACTULOSE 20 GM/30 ML ORAL.SOL PO SCH ×3 (08:06→21:12)
[2022-05-16] MEDS: PANTOPRAZOLE 40 MG TABLET PO SCH (08:06)
[2022-05-16] MEDS: FUROSEMIDE 20 MG TABLET PO SCH (08:07)
[2022-05-16] MEDS: DULoxetine 30 MG CAPSULE PO SCH ×2 (08:07→21:11)
[2022-05-16] MEDS: METHOCARBAMOL 750 MG TABLET PO PRN (08:31)
[2022-05-16] MEDS: oxyCODONE HCL 5 MG TABLET PO PRN (11:56)
[2022-05-16] MEDS ORDERED: cefTRIAXone 1 GM VIAL IV SCH (14:30)
[2022-05-16] MEDS: morphine 4 MG/ML VIAL IV PRN ×2 (17:22→21:20)
[2022-05-16] MEDS: traZODone HCL 50 MG TABLET PO PRN (21:11)
[2022-05-16] MEDS: QUEtiapine 100 MG TABLET PO SCH (21:11)
[2022-05-16] MEDS: SENNOSIDES 1 TABLET PO SCH (21:12)
[2022-05-17] MEDS: 0.9 % SODIUM CHLORIDE 10 ML SYRINGE IV SCH ×3 (05:31→22:06)
[2022-05-17] MEDS: metroNIDAZOLE 500 MG/100 ML BAG IV SCH ×3 (05:31→22:06)
[2022-05-17] MEDS: morphine 4 MG/ML VIAL IV PRN ×4 (05:55→20:04)
[2022-05-17 06:05] LABS: Basophils # (Auto) 0.03 K/mcL (0.00-0.30); Eosinophils # (Auto) 0.29 K/mcL (0.00-0.70); Eosinophils % (Auto) 10.1 % (0.0-7.0); Hematocrit 28.9 % (40.1-51.0); Hemoglobin 9.4 g/dL (13.7-17.5); Lymphocytes # (Auto) 0.81 K/mcL (1.50-4.80); Lymphocytes % (Auto) 28.3 % (15.5-49.0); Mean Cell Volume 92.9 fL (80.0-100.0); Mean Corpuscular HGB Conc 32.5 g/dL (31.0-36.0); Mean Platelet Volume 12.1 fL (7.4-10.4); Monocytes # (Auto) 0.23 K/mcL (0.10-0.90); Neutrophils % (Auto) 52.3 % (38.0-78.0); Platelet Count 50 K/mcL (140-440); RBC 3.11 M/mcL (4.63-6.08); Red Cell Distribution Width 16.9 % (11.5-14.5); WBC 2.9 K/mcL (4.5-11.0)
[2022-05-17 06:21] LABS: ALT/SGPT 35 U/L (<40); AST/SGOT 81 U/L (<40); Albumin/Globulin Ratio 0.6 (1.0-2.3); Alkaline Phosphatase 88 U/L (39-117); Bilirubin,Direct 0.6 mg/dL (<0.3); Bilirubin,Total 1.5 mg/dL (0.1-1.0); Blood Urea Nitrogen 24 mg/dL (8-23); Calcium 7.9 mg/dL (8.6-10.4); Carbon Dioxide 22 mmol/L (22-30); Chloride 110 mmol/L (96-108); Globulin 3.4 gm/dL (2.2-3.7); Glomerular Filtration Rate 92; Glucose 92 mg/dL (70-105); Lactate Dehydrogenase 140 U/L (135-225); Phosphorous 3.9 mg/dL (2.5-4.5); Triglycerides 53 mg/dL (<150); Uric Acid 7.5 mg/dL (2.5-8.0)
[2022-05-17] MEDS: DOCUSATE SODIUM 100 MG CAPSULE PO SCH (07:57)
[2022-05-17] MEDS: LACTULOSE 20 GM/30 ML ORAL.SOL PO SCH (07:57)
[2022-05-17] MEDS: FUROSEMIDE 20 MG TABLET PO SCH (07:57)
[2022-05-17] MEDS: DULoxetine 30 MG CAPSULE PO SCH ×2 (07:57→20:42)
[2022-05-17] MEDS: MELOXICAM 7.5 MG TABLET PO SCH (07:57)
[2022-05-17] MEDS: SPIRONOLACTONE 25 MG TABLET PO SCH (07:57)
[2022-05-17] MEDS: PANTOPRAZOLE 40 MG TABLET PO SCH (07:58)
[2022-05-17] MEDS: ENOXAPARIN 100 MG/ML SYRINGE SQ SCH ×2 (07:58→20:42)
[2022-05-17] MEDS: cefTRIAXone 2 GM in DEXTROSE 5% IN WATER 50 ML IV SCH (09:58)
[2022-05-17] MEDS ORDERED: LACTULOSE 20 GM/30 ML ORAL.SOL PO PRN (11:09)
--- NOTE | 2022-05-17 13:10 | Cat Scan Report ---
CLINICAL INFORMATION: abdominal pain. History of cirrhosis COMPARISON: Abdomen and pelvic CT 09/19/2017 and 2021. TECHNIQUE: 0.625 mm helical slices were obtained from the mid heart through the subtrochanteric regions. Following reconstruction, 2.5 mm sagittal, coronal and axial reformatted images were processed and reviewed at bone and soft tissue windows.The exam was performed using radiation dose optimization techniques including, but not limited to, automated exposure control, adjustment of the mA and/or kV according to patient size and use of iterative reconstruction technique. FINDINGS: Small left and tiny right pleural effusion show slight worsening. There is subsegmental atelectasis in the posterior lower lobes which is unchanged. The visualized heart is grossly normal. Abdominal images show mild diffuse wall thickening of the gallbladder is likely related to cirrhosis. The common bile duct is normal caliber-7 mm. The liver is decreased in size with asymmetric enlargement of the caudate lobe, inhomogeneous attenuation cortical irregularity all compatible with cirrhosis. Portal vein is mildly enlarged in diameter 19 mm. There are stable varices in the perigastric and perisplenic region and moderate splenomegaly. The lesion that Both kidneys show small bilateral cysts but no significant abnormality. Both noncontrasted adrenal glands, pancreas and aorta are normal. Moderate simple ascites throughout the abdomen and pelvis as increased considerably since the comparison CT is three days prior. No free air or adenopathy Pelvic images show urinary bladder, prostate and seminal vesicles to be normal. Few sigmoid diverticula appreciated, but no evidence of diverticulitis. The remaining large bowel, retrocecal appendix, small bowel and stomach are grossly normal on today's exam Bone windows show no osseous abnormality IMPRESSION: Moderate cirrhosis with portal hypertension featuring mild dilatation of the portal vein with splenic and gastric vein varices. There is also moderate splenomegaly and moderate ascites. Volume of simple ascites as increased considerably since comparison CT three days prior. History of portal vein thrombus is acknowledged. Status of the thrombus cannot be consider Doppler assessed without use of intravenous contrast. Small bilateral renal cysts-stable Small left and tiny right pleural effusion-slight worsening. Interpreted and Authenticated by: King Pires 05/17/22
--- NOTE | 2022-05-17 13:39 | Internal Med Progress Note ---
SUBJECTIVE Subjective Patient information: Note initiated : 05/17/22 at 1:37 pm Service Date, if different from initiated Date: [] Patient: Josue Calvin 62 y/o M admitted on 05/14/22 for Fluid in ABD. Chief Complaint: [] Interval history: Mr. Calvin is a 62 year old M history of cirrhosis secondary to hepatitis C infections as well as alcoholism with associated ascites, depression with anxiety, presenting with abdominal distention and pain. He has been diagnosed with cirrhosis for years and he has been struggling with cirrhosis for the past 9 months. Last paracentesis was done in about a month ago at the end of the March this year. He presented to our ED today for worsening abdominal pain and distention. He is complain of 9 out of 10, kicking, constant abdominal pain mostly affecting his right upper quadrant and periumbilical region. He is complaining of associated nausea, vomiting, and decreased appetite. He denies any fever or chills. He denies any constipations or diarrhea. Status post therapeutic and diagnostic paracentesis with removal of 2 L of acetic fluid earlier this evening. Vital signs within normal limits. Labs significant for lack of leukocytosis with WBC 4.7. H&H 10.7 and 32.8, respectively. Creatinine 0.8. CT of the abdomen pelvis showing evidence of cecal and ascending colon 8 colitis as well as none occlusive thrombus in the portal vein. It also shows cirrhosis with splenomegaly and varices. 05/15: Afebrile overnight. WBC 3.3 this morning. H&H 9.7 and 28.9, respectively. Pending ascites fluid analysis. Blood culture and ascitic fluid cultures no growth today. Patient is coming of 8 out of 10 kicking constant pain in all abdominal quadrants. He is complaining of nausea denies any vomiting. Denies constipation or diarrhea. Tolerating clear liquid diet. Continue clear liquid diet and will advance when patient feels ready. Continue IV antibiotics with Rocephin and Flagyl. Continue therapeutic dose of Lovenox for portal vein fibrosis. 05/16: Abdominal pain present but the patient says this has improved since admission. Abdominal distention noted, may need another paracentesis soon. Recent ascites fluid analysis not yet complete, continues on ceftriaxone and Flagyl. 05/17: Vital stable overnight, persistent abdominal discomfort, will repeat CT abdomen pelvis today. Ascites fluid analysis not yet complete. The patient is also having liquidy stool in the setting of colitis will obtain a C. difficile screen. Continues on Lovenox for anticoagulation, likely transition to DOAC soon for portal vein thrombus anticoagulation. Head: Atraumatic, normal inspection. Eyes: normal appearance, no scleral icterus. Neck: full ROM Respiratory: no respiratory distress. Cardiovascular: normal rate and rhythm, S1, S2. GI/Abdominal: Distended, mild diffuse tenderness, no guarding. Extremities: full range of motion, nontender. Neurological: CN II-XII intact, intact motor, intact sensation. Psychiatric: normal mood. Skin: warm, normal color Constitutional Vitals: Vital Signs Temp Pulse Resp BP Pulse Ox O2 Del Method 97.2 F 62 18 105/63 96 05/17/22 11:58 05/17/22 11:58 05/17/22 11:58 05/17/22 11:58 05/17/22 11:58 05/17/22 11:58 Period Temp Pulse Resp BP Sys/Hodges Pulse Ox O2 Del Method O2 Flow Rate Last 24 Hr 97.2 F-99.1 F 60-72 16-20 87-124/50-75 93-96 Room Air-Room Air Intake and Output 05/16/22 05/17/22 05/17/22 21:59 05:59 13:59 Intake Total 340 220 150 Output Total 150 Balance 340 220 0 Weight 92.306 kg Intake & Output: Intake & Output 05/16/22 05/17/22 05/17/22 21:59 05:59 13:59 Intake Total 340 220 150 Output Total 150 Balance 340 220 0 Weight 92.306 kg Intake: IV 100 100 150 Rocephin 2 gm In Dextrose 5% in 50 Water 50 ml @ 100 mls/hr IV Q24H [facility] Rx#:[id number] Oral 240 120 Output: Void Amount 150 Other: Meal Lunch Percent of Meal Consumed 50% Feeding Ability Independent Urine Color Dark Yellow Stool Size Large Stool Consistency Loose # Voids 4 1 # Bowel Movements 2 OBJ DATA Labs CBC & Chem 7: 05/17/22 05:13 05/17/22 05:13 Labs: Abnormal Lab Results 05/17/22 05/17/22 05/15/22 05:13 05:13 05:37 WBC 2.9 L RBC 3.11 L Hgb 9.4 L Hct 28.9 L POC Hct RDW 16.9 H Plt Count 50 L MPV 12.1 H Eos % (Auto) 10.1 H Lymph # (Auto) 0.81 L Absolute Neutrophils 1.49 L POC PT POC INR Chloride 110 H 112 H Carbon Dioxide 21 L Anion Gap 7.0 L 6.0 L POC BUN BUN 24 H 24 H POC Glucose Calcium 7.9 L 8.2 L POC WB Ioniz Calcium Total Bilirubin 1.5 H 1.4 H Direct Bilirubin 0.6 H GGT 80 H AST 81 H 66 H C-Reactive Protein Total Protein 5.4 L 5.6 L Albumin 2.0 L 2.2 L Albumin/Globulin Ratio 0.6 L 0.6 L Lipase Urine Protein Urine Occult Blood Urine RBC Urine Mucus 05/15/22 05/14/22 05/14/22 05:37 23:16 21:49 WBC 3.3 L RBC 3.15 L Hgb 9.7 L Hct 28.9 L POC Hct 33.0 L RDW 17.2 H Plt Count 51 L MPV 11.2 H Eos % (Auto) 10.1 H Lymph # (Auto) 0.84 L Absolute Neutrophils 1.75 L POC PT 16.3 H POC INR 1.4 H Chloride Carbon Dioxide Anion Gap POC BUN 35 H BUN POC Glucose 107 H Calcium POC WB Ioniz Calcium 1.15 L Total Bilirubin Direct Bilirubin GGT AST C-Reactive Protein Total Protein Albumin Albumin/Globulin Ratio Lipase Urine Protein Urine Occult Blood Urine RBC Urine Mucus 05/14/22 05/14/22 05/14/22 20:38 17:50 17:50 WBC RBC 3.53 L Hgb 10.7 L Hct 32.8 L POC Hct RDW 17.5 H Plt Count 58 L MPV 12.6 H Eos % (Auto) 7.7 H Lymph # (Auto) 0.74 L Absolute Neutrophils POC PT POC INR Chloride Carbon Dioxide Anion Gap POC BUN BUN POC Glucose Calcium POC WB Ioniz Calcium Total Bilirubin Direct Bilirubin GGT AST C-Reactive Protein 1.70 H Total Protein Albumin Albumin/Globulin Ratio Lipase 116 H Urine Protein 30 mg/dl A Urine Occult Blood Moderate A Urine RBC 7 H Urine Mucus Few A Meds: Medications Acetaminophen (Acetaminophen 325 Mg Tablet) 650 mg PO Q6HP PRN; Protocol PRN Reason: Per Pain Protocol/Fever > 101 Albuterol/Ipratropium (Ipratropium/Albuterol 3 Ml Ampul.Neb) 3 ml NEB Q4HRT PRN PRN Reason: Wheezing Duloxetine HCl (Duloxetine 30 Mg Capsule) 30 mg PO BID [facility] Last Admin: 05/17/22 07:57 Dose: 30 mg Enoxaparin Sodium (Enoxaparin 100 Mg/Ml Syringe) 90 mg SQ BID [facility] Last Admin: 05/17/22 07:58 Dose: 90 mg Furosemide (Furosemide 20 Mg Tablet) 40 mg PO QAM [facility] Last Admin: 05/17/22 07:57 Dose: 40 mg Metronidazole (Flagyl) 500 mg in 100 mls @ 100 mls/hr IV Q8 [facility]; Protocol Last Infusion: 05/17/22 07:11 Dose: Infused Ceftriaxone Sodium 2 gm/ (Dextrose) 50 mls @ 100 mls/hr IV Q24H [facility] Last Infusion: 05/17/22 10:48 Dose: Infused Lactulose (Lactulose 20 Gm/30 Ml Oral.Sharon) 30 gm PO DAILY [facility] Lactulose (Lactulose 20 Gm/30 Ml Oral.Sharon) 20 gm PO QID PRN PRN Reason: other Meloxicam (Meloxicam 7.5 Mg Tablet) 15 mg PO DAILY [facility] Last Admin: 05/17/22 07:57 Dose: 15 mg Methocarbamol (Methocarbamol 750 Mg Tablet) 750 mg PO Q8H PRN PRN Reason: pain, moderate Last Admin: 05/16/22 08:31 Dose: 750 mg Morphine Sulfate (Morphine 4 Mg/Ml Vial) 4 mg IV Q4HP PRN; Protocol PRN Reason: Per Pain Protocol Last Admin: 05/17/22 10:08 Dose: 4 mg Ondansetron HCl (Ondansetron 4 Mg/2 Ml Vial) 4 mg IV Q6HP PRN PRN Reason: Nausea And Vomiting Oxycodone HCl (Oxycodone Hcl 5 Mg Tablet) 5 mg PO Q4HP PRN; Protocol PRN Reason: Per Pain Protocol Last Admin: 05/16/22 11:56 Dose: 5 mg Pantoprazole Sodium (Pantoprazole 40 Mg Tablet) 40 mg PO QAMAC [facility] Last Admin: 05/17/22 07:58 Dose: 40 mg Quetiapine Fumarate (Quetiapine 100 Mg Tablet) 100 mg PO HS [facility] Last Admin: 09/04/22 21:11 Dose: 100 mg Sodium Chloride (0.9 % Sodium Chloride 10 Ml Syringe) 10 ml IV Q8 [facility] Last Admin: 05/17/22 05:31 Dose: 10 ml Spironolactone (Spironolactone 25 Mg Tablet) 100 mg PO DAILY [facility] Last Admin: 05/17/22 07:57 Dose: 100 mg Trazodone HCl (Trazodone Hcl 50 Mg Tablet) 25 mg PO HSP PRN PRN Reason: Insomnia Last Admin: 05/16/22 21:11 Dose: 25 mg A/P Narrative A/P Narrative: Assessment: 62-year-old male with a history of liver cirrhosis, chronic hepatitis C infection, alcohol use disorder, depression, anxiety admitted for abdominal distention and pain. CT abdomen pelvis revealed evidence of colitis of the ascending colon and cecum as well as nonocclusive thrombus in the portal vein. Patient underwent a paracentesis, awaiting ascites fluid analysis. The patient is currently on antibiotics for possible bacterial peritonitis as well as colitis. Patient is also on Lovenox for anticoagulation for the portal vein thrombus. #Probable colitis of ascending colon and cecum #Possible bacterial peritonitis #Nonocclusive portal vein thrombus #Decompensated liver cirrhosis #Thrombocytopenia secondary to liver cirrhosis #Normocytic anemia #Chronic hepatitis C infection #History of alcohol use disorder #Depression #Anxiety Plan -Continue ceftriaxone and Flagyl. -Discontinue propranolol due to concern for bacterial peritonitis. -Await ascites fluid labs and culture. -Follow blood cultures. -Monitor renal function, CBC. -Check ammonia level. -Consider repeat CT scan if abdominal pain does not improve soon. -Paracentesis as needed. -Lovenox for portal vein thrombus anticoagulation, likely transition to oral anticoagulation soon. -Continue Lasix to 40 mg daily and spironolactone to 100 mg daily. -Continue Cymbalta, Protonix, Seroquel, trazodone at bedtime. -Analgesics as needed. -GI soft diet. -PT following. -DVT prophylaxis: On therapeutic Lovenox. -CODE STATUS: Full -Disposition: Home when stable. Likely 6 months of anticoagulation for portal vein thrombus. Follow-up with GI after discharge for management of decompensated liver cirrhosis, portal vein thrombosis and possible colonoscopy if not recently performed. Time Spent With Patient Time: Total time spent is greater than 50% in coordination of care (as documented) at patient's floor/unit and/or counseling patient: QUALITY VTE Deep Vein Thrombosis/Pulmonary Embolism Present on Admission: No
[2022-05-17] MEDS: QUEtiapine 100 MG TABLET PO SCH (20:42)
[2022-05-17] MEDS: METHOCARBAMOL 750 MG TABLET PO PRN (20:48)
[2022-05-17] MEDS: oxyCODONE HCL 5 MG TABLET PO PRN (20:49)
[2022-05-18] MEDS: morphine 4 MG/ML VIAL IV PRN ×4 (04:12→23:13)
[2022-05-18] MEDS: 0.9 % SODIUM CHLORIDE 10 ML SYRINGE IV SCH ×3 (05:59→21:08)
[2022-05-18] MEDS: metroNIDAZOLE 500 MG/100 ML BAG IV SCH (06:00)
[2022-05-18] MEDS: cefTRIAXone 2 GM in DEXTROSE 5% IN WATER 50 ML IV SCH (08:23)
[2022-05-18] MEDS: FUROSEMIDE 20 MG TABLET PO SCH (08:23)
[2022-05-18] MEDS: ENOXAPARIN 100 MG/ML SYRINGE SQ SCH (08:23)
[2022-05-18] MEDS: SPIRONOLACTONE 25 MG TABLET PO SCH (08:24)
[2022-05-18] MEDS: LACTULOSE 20 GM/30 ML ORAL.SOL PO SCH (08:24)
[2022-05-18] MEDS: PANTOPRAZOLE 40 MG TABLET PO SCH (08:24)
[2022-05-18] MEDS: MELOXICAM 7.5 MG TABLET PO SCH (08:24)
[2022-05-18] MEDS: DULoxetine 30 MG CAPSULE PO SCH ×2 (08:24→21:07)
[2022-05-18 09:00] LABS: Basophils # (Auto) 0.02 K/mcL (0.00-0.30); Basophils % (Auto) 0.8 % (0.0-2.0); Eosinophils # (Auto) 0.26 K/mcL (0.00-0.70); Eosinophils % (Auto) 10.9 % (0.0-7.0); Hematocrit 31.1 % (40.1-51.0); Hemoglobin 10.1 g/dL (13.7-17.5); Lymphocytes # (Auto) 0.65 K/mcL (1.50-4.80); Lymphocytes % (Auto) 27.2 % (15.5-49.0); Mean Corpuscular HGB Conc 32.5 g/dL (31.0-36.0); Mean Platelet Volume 12.4 fL (7.4-10.4); Monocytes # (Auto) 0.12 K/mcL (0.10-0.90); Neutrophils % (Auto) 55.7 % (38.0-78.0); Platelet Count 54 K/mcL (140-440); RBC 3.31 M/mcL (4.63-6.08); Red Cell Distribution Width 16.7 % (11.5-14.5); WBC 2.4 K/mcL (4.5-11.0)
[2022-05-18 09:25] LABS: ALT/SGPT 47 U/L (<40); AST/SGOT 113 U/L (<40); Albumin 2.1 gm/dL (3.2-5.2); Albumin/Globulin Ratio 0.6 (1.0-2.3); Alkaline Phosphatase 100 U/L (39-117); Bilirubin,Direct 0.4 mg/dL (<0.3); Blood Urea Nitrogen 22 mg/dL (8-23); Calcium 7.9 mg/dL (8.6-10.4); Carbon Dioxide 23 mmol/L (22-30); Chloride 109 mmol/L (96-108); Globulin 3.8 gm/dL (2.2-3.7); Glomerular Filtration Rate 81; Glucose 143 mg/dL (70-105); Lactate Dehydrogenase 157 U/L (135-225); Phosphorous 3.5 mg/dL (2.5-4.5); Triglycerides 51 mg/dL (<150); Uric Acid 8.2 mg/dL (2.5-8.0)
[2022-05-18 12:09] LABS: Eosinophils,Peritoneal Fluid 1 %; Mesothelial,Peritoneal Fluid 4 %; Monocyte,Peritoneal Fluid 45 %; Neutrophils,Peritoneal Fluid 14 %; Nucleated Cel,Peritoneal Fluid 112 /cumm; RBC,Peritoneal Fluid <50,000 /cumm
[2022-05-18] MEDS: oxyCODONE HCL 5 MG TABLET PO PRN ×2 (13:10→19:00)
--- NOTE | 2022-05-18 17:04 | Internal Med Progress Note ---
SUBJECTIVE Subjective Patient information: Note initiated : 05/18/22 at 4:58 pm Service Date, if different from initiated Date: [] Patient: Josue Calvin 62 y/o M admitted on 05/14/22 for Fluid in ABD. Chief Complaint: [] Interval history: Mr. Calvin is a 62 year old M history of cirrhosis secondary to hepatitis C infections as well as alcoholism with associated ascites, depression with anxiety, presenting with abdominal distention and pain. He has been diagnosed with cirrhosis for years and he has been struggling with cirrhosis for the past 9 months. Last paracentesis was done in about a month ago at the end of the March this year. He presented to our ED today for worsening abdominal pain and distention. He is complain of 9 out of 10, kicking, constant abdominal pain mostly affecting his right upper quadrant and periumbilical region. He is complaining of associated nausea, vomiting, and decreased appetite. He denies any fever or chills. He denies any constipations or diarrhea. Status post therapeutic and diagnostic paracentesis with removal of 2 L of acetic fluid earlier this evening. Vital signs within normal limits. Labs significant for lack of leukocytosis with WBC 4.7. H&H 10.7 and 32.8, respectively. Creatinine 0.8. CT of the abdomen pelvis showing evidence of cecal and ascending colon 8 colitis as well as none occlusive thrombus in the portal vein. It also shows cirrhosis with splenomegaly and varices. 05/15: Afebrile overnight. WBC 3.3 this morning. H&H 9.7 and 28.9, respectively. Pending ascites fluid analysis. Blood culture and ascitic fluid cultures no growth today. Patient is coming of 8 out of 10 kicking constant pain in all abdominal quadrants. He is complaining of nausea denies any vomiting. Denies constipation or diarrhea. Tolerating clear liquid diet. Continue clear liquid diet and will advance when patient feels ready. Continue IV antibiotics with Rocephin and Flagyl. Continue therapeutic dose of Lovenox for portal vein fibrosis. 05/16: Abdominal pain present but the patient says this has improved since admission. Abdominal distention noted, may need another paracentesis soon. Recent ascites fluid analysis not yet complete, continues on ceftriaxone and Flagyl. 05/17: Vital stable overnight, persistent abdominal discomfort, will repeat CT abdomen pelvis today. Ascites fluid analysis not yet complete. The patient is also having liquidy stool in the setting of colitis will obtain a C. difficile screen. Continues on Lovenox for anticoagulation, likely transition to DOAC soon for portal vein thrombus anticoagulation. 05/18: CT abdomen pelvis was without contrast due to IV contrast shortage, no evidence of colitis on that scan. Ascites fluid analysis resulted, not consistent with bacterial peritonitis. Transition to Eliquis twice daily DVT dosing, discontinu e therapeutic Lovenox. Weaning IV morphine. Start regular low-dose low-sodium diet. Head: Atraumatic, normal inspection. Eyes: normal appearance, no scleral icterus. Neck: full ROM Respiratory: no respiratory distress. Cardiovascular: normal rate and rhythm, S1, S2. GI/Abdominal: Distended, soft, nontender, no guarding. Extremities: full range of motion, nontender. Neurological: CN II-XII intact, intact motor, intact sensation. Psychiatric: normal mood. Skin: warm, normal color Constitutional Vitals: Vital Signs Temp Pulse Resp BP Pulse Ox O2 Del Method 98.2 F 80 16 114/65 96 05/18/22 16:00 05/18/22 16:00 05/18/22 16:00 05/18/22 16:00 05/18/22 16:00 05/18/22 16:00 Period Temp Pulse Resp BP Sys/Hodges Pulse Ox O2 Del Method O2 Flow Rate Last 24 Hr 97.4 F-98.4 F 64-80 12-16 92-117/54-69 94-97 Room Air-Room Air Intake and Output 05/18/22 05/18/22 05/18/22 05:59 13:59 21:59 Intake Total 570 150 Output Total 275 Balance 295 150 Intake & Output: Intake & Output 05/18/22 05/18/22 05/18/22 05:59 13:59 21:59 Intake Total 570 150 Output Total 275 Balance 295 150 Intake: IV 100 150 Rocephin 2 gm In Dextrose 5% in 50 Water 50 ml @ 100 mls/hr IV Q24H [facility] Rx#:[id number] Oral 470 Output: Void Amount 275 Other: Urine Appearance Clear Urine Color Dark Yellow Stool Size Small Stool Consistency Loose # Bowel Movements 1 OBJ DATA Labs CBC & Chem 7: 05/18/22 08:33 05/18/22 08:33 Labs: Abnormal Lab Results 05/18/22 05/18/22 05/17/22 08:33 08:33 05:13 WBC 2.4 L RBC 3.31 L Hgb 10.1 L Hct 31.1 L RDW 16.7 H Plt Count 54 L MPV 12.4 H Eos % (Auto) 10.9 H Lymph # (Auto) 0.65 L Absolute Neutrophils 1.33 L Chloride 109 H 110 H Anion Gap 6.0 L 7.0 L BUN 24 H Glucose 143 H Uric Acid 8.2 H Calcium 7.9 L 7.9 L Magnesium 1.5 L Total Bilirubin 1.5 H Direct Bilirubin 0.4 H 0.6 H GGT 92 H 80 H AST 113 H 81 H ALT 47 H Total Protein 5.4 L Albumin 2.1 L 2.0 L Globulin 3.8 H Albumin/Globulin Ratio 0.6 L 0.6 L 05/17/22 05:13 WBC 2.9 L RBC 3.11 L Hgb 9.4 L Hct 28.9 L RDW 16.9 H Plt Count 50 L MPV 12.1 H Eos % (Auto) 10.1 H Lymph # (Auto) 0.81 L Absolute Neutrophils 1.49 L Chloride Anion Gap BUN Glucose Uric Acid Calcium Magnesium Total Bilirubin Direct Bilirubin GGT AST ALT Total Protein Albumin Globulin Albumin/Globulin Ratio Meds: Medications Acetaminophen (Acetaminophen 325 Mg Tablet) 650 mg PO Q6HP PRN; Protocol PRN Reason: Per Pain Protocol/Fever > 101 Albuterol/Ipratropium (Ipratropium/Albuterol 3 Ml Ampul.Neb) 3 ml NEB Q4HRT PRN PRN Reason: Wheezing Apixaban (Apixaban 5 Mg Tablet) 10 mg PO BID [facility] Stop: 05/25/22 20:59 Apixaban (Apixaban 5 Mg Tablet) 5 mg PO BID [facility] Duloxetine HCl (Duloxetine 30 Mg Capsule) 30 mg PO BID [facility] Last Admin: 05/18/22 08:24 Dose: 30 mg Furosemide (Furosemide 20 Mg Tablet) 40 mg PO QAM [facility] Last Admin: 05/18/22 08:23 Dose: 40 mg Lactulose (Lactulose 20 Gm/30 Ml Oral.Sharon) 30 gm PO DAILY [facility] Last Admin: 05/18/22 08:24 Dose: 30 gm Lactulose (Lactulose 20 Gm/30 Ml Oral.Sharon) 20 gm PO QID PRN PRN Reason: other Meloxicam (Meloxicam 7.5 Mg Tablet) 15 mg PO DAILY [facility] Last Admin: 05/18/22 08:24 Dose: 15 mg Methocarbamol (Methocarbamol 750 Mg Tablet) 750 mg PO Q8H PRN PRN Reason: pain, moderate Last Admin: 05/17/22 20:48 Dose: 750 mg Morphine Sulfate (Morphine 4 Mg/Ml Vial) 2 mg IV Q4HP PRN; Protocol PRN Reason: Per Pain Protocol Ondansetron HCl (Ondansetron 4 Mg/2 Ml Vial) 4 mg IV Q6HP PRN PRN Reason: Nausea And Vomiting Oxycodone HCl (Oxycodone Hcl 5 Mg Tablet) 10 mg PO Q6HP PRN; Protocol PRN Reason: Per Pain Protocol Last Admin: 05/18/22 13:10 Dose: 10 mg Pantoprazole Sodium (Pantoprazole 40 Mg Tablet) 40 mg PO QAMAC [facility] Last Admin: 05/18/22 08:24 Dose: 40 mg Quetiapine Fumarate (Quetiapine 100 Mg Tablet) 100 mg PO HS [facility] Last Admin: 05/17/22 20:42 Dose: 100 mg Sodium Chloride (0.9 % Sodium Chloride 10 Ml Syringe) 10 ml IV Q8 [facility] Last Admin: 05/18/22 14:56 Dose: Not Given Spironolactone (Spironolactone 25 Mg Tablet) 100 mg PO DAILY [facility] Last Admin: 05/18/22 08:24 Dose: 100 mg Trazodone HCl (Trazodone Hcl 50 Mg Tablet) 25 mg PO HSP PRN PRN Reason: Insomnia Last Admin: 05/16/22 21:11 Dose: 25 mg A/P Narrative A/P Narrative: Assessment: 62-year-old male with a history of liver cirrhosis, chronic hepat itis C infection, alcohol use disorder, depression, anxiety admitted for abdominal distention and pain. CT abdomen pelvis revealed evidence of colitis of the ascending colon and cecum as well as nonocclusive thrombus in the portal vein. Patient underwent a paracentesis, awaiting ascites fluid analysis. The patient is currently on antibiotics for possible bacterial peritonitis as well as colitis. Patient is also on Lovenox for anticoagulation for the portal vein thrombus. #Resolved colitis of ascending colon and cecum #Nonocclusive portal vein thrombus #Decompensated liver cirrhosis #Thrombocytopenia secondary to liver cirrhosis #Normocytic anemia #Peripheral eosinophilia #Leukopenia #Chronic hepatitis C infection #History of alcohol use disorder #Depression #Anxiety Plan -Continue ceftriaxone and Flagyl, treat for a total of 5 days -Monitor renal function, CBC. -Paracentesis as needed. -Start Eliquis twice daily DVT dosing, discontinue Lovenox. -Continue Lasix to 40 mg daily and spironolactone to 100 mg daily. -Continue Cymbalta, Protonix, Seroquel, trazodone at bedtime. -Analgesics as needed, weaning IV morphine. -Low-sodium diet. -PT following. -DVT prophylaxis: Eliquis -CODE STATUS: Full -Disposition: Home when stable. Likely 6 months of anticoagulation for portal vein thrombus. Follow-up with GI after discharge for management of decompensated liver cirrhosis, portal vein thrombosis and possible colonoscopy if not recently performed. Time Spent With Patient Time: Total time spent is greater than 50% in coordination of care (as documented) at patient's floor/unit and/or counseling patient: QUALITY VTE Deep Vein Thrombosis/Pulmonary Embolism Present on Admission: No
[2022-05-18] MEDS: METHOCARBAMOL 750 MG TABLET PO PRN (21:07)
[2022-05-18] MEDS: traZODone HCL 50 MG TABLET PO PRN (21:07)
[2022-05-18] MEDS: QUEtiapine 100 MG TABLET PO SCH (21:08)
[2022-05-18] MEDS: APIXABAN 5 MG TABLET PO SCH (21:08)
[2022-05-19] MEDS: oxyCODONE HCL 5 MG TABLET PO PRN ×4 (05:46→23:58)
[2022-05-19] MEDS: PANTOPRAZOLE 40 MG TABLET PO SCH (08:03)
[2022-05-19] MEDS: 0.9 % SODIUM CHLORIDE 10 ML SYRINGE IV SCH ×3 (08:13→20:58)
[2022-05-19] MEDS: morphine 4 MG/ML VIAL IV PRN (09:03)
[2022-05-19] MEDS: LACTULOSE 20 GM/30 ML ORAL.SOL PO SCH (09:03)
[2022-05-19] MEDS: FUROSEMIDE 20 MG TABLET PO SCH (09:04)
[2022-05-19] MEDS: MELOXICAM 7.5 MG TABLET PO SCH (09:04)
[2022-05-19] MEDS: SPIRONOLACTONE 25 MG TABLET PO SCH (09:04)
[2022-05-19] MEDS: DULoxetine 30 MG CAPSULE PO SCH ×2 (09:04→20:54)
[2022-05-19] MEDS: APIXABAN 5 MG TABLET PO SCH ×2 (09:05→20:54)
[2022-05-19] MEDS ORDERED: MAGNESIUM SULFATE 2 GM/50 ML BAG IV SCH ×2 (11:00→14:15)
--- NOTE | 2022-05-19 14:51 | Internal Med Progress Note ---
SUBJECTIVE Subjective Patient information: Note initiated : 05/19/22 at 2:50 pm Service Date, if different from initiated Date: [] Patient: Josue Calvin 62 y/o M admitted on 05/14/22 for Fluid in ABD. Chief Complaint: [] Interval history: Mr. Calvin is a 62 year old M history of cirrhosis secondary to hepatitis C infections as well as alcoholism with associated ascites, depression with anxiety, presenting with abdominal distention and pain. He has been diagnosed with cirrhosis for years and he has been struggling with cirrhosis for the past 9 months. Last paracentesis was done in about a month ago at the end of the March this year. He presented to our ED today for worsening abdominal pain and distention. He is complain of 9 out of 10, kicking, constant abdominal pain mostly affecting his right upper quadrant and periumbilical region. He is complaining of associated nausea, vomiting, and decreased appetite. He denies any fever or chills. He denies any constipations or diarrhea. Status post therapeutic and diagnostic paracentesis with removal of 2 L of acetic fluid earlier this evening. Vital signs within normal limits. Labs significant for lack of leukocytosis with WBC 4.7. H&H 10.7 and 32.8, respectively. Creatinine 0.8. CT of the abdomen pelvis showing evidence of cecal and ascending colon 8 colitis as well as none occlusive thrombus in the portal vein. It also shows cirrhosis with splenomegaly and varices. 05/15: Afebrile overnight. WBC 3.3 this morning. H&H 9.7 and 28.9, respectively. Pending ascites fluid analysis. Blood culture and ascitic fluid cultures no growth today. Patient is coming of 8 out of 10 kicking constant pain in all abdominal quadrants. He is complaining of nausea denies any vomiting. Denies constipation or diarrhea. Tolerating clear liquid diet. Continue clear liquid diet and will advance when patient feels ready. Continue IV antibiotics with Rocephin and Flagyl. Continue therapeutic dose of Lovenox for portal vein fibrosis. 05/16: Abdominal pain present but the patient says this has improved since admission. Abdominal distention noted, may need another paracentesis soon. Recent ascites fluid analysis not yet complete, continues on ceftriaxone and Flagyl. 05/17: Vital stable overnight, persistent abdominal discomfort, will repeat CT abdomen pelvis today. Ascites fluid analysis not yet complete. The patient is also having liquidy stool in the setting of colitis will obtain a C. difficile screen. Continues on Lovenox for anticoagulation, likely transition to DOAC soon for portal vein thrombus anticoagulation. 05/18: CT abdomen pelvis was without contrast due to IV contrast shortage, no evidence of colitis on that scan. Ascites fluid analysis resulted, not consistent with bacterial peritonitis. Transition to Eliquis twice daily DVT dosing, discontinu e therapeutic Lovenox. Weaning IV morphine. Start regular low-dose low-sodium diet. 05/19: Discontinued IV morphine as needed, therapeutic paracentesis today. Head: Atraumatic, normal inspection. Eyes: normal appearance, no scleral icterus. Neck: full ROM Respiratory: no respiratory distress. Cardiovascular: normal rate and rhythm, S1, S2. GI/Abdominal: Distended, tender, no guarding. Extremities: full range of motion, nontender. Neurological: CN II-XII intact, intact motor, intact sensation. Psychiatric: normal mood. Skin: warm, normal color Constitutional Vitals: Vital Signs Temp Pulse Resp BP Pulse Ox O2 Del Method 97.5 F 69 14 92/58 96 05/19/22 12:00 05/19/22 11:47 05/19/22 11:47 05/19/22 11:47 05/19/22 11:47 05/19/22 11:47 Period Temp Pulse Resp BP Sys/Hodges Pulse Ox O2 Del Method O2 Flow Rate Last 24 Hr 97.5 F-98.7 F 69-84 14-16 92-114/58-67 95-96 Room Air-Room Air Intake and Output 05/19/22 05/19/22 05/19/22 05:59 13:59 21:59 Intake Total 750 390 Output Total 325 Balance 425 390 Weight 93.894 kg Patient Weight 05/20/22 05:59 Weight 93.894 kg Intake & Output: Intake & Output 05/19/22 05/19/22 05/19/22 05:59 13:59 21:59 Intake Total 750 390 Output Total 325 Balance 425 390 Weight 93.894 kg Intake: Oral 750 390 Output: Void Amount 325 Other: Meal Lunch Percent of Meal Consumed 100% Feeding Ability Independent Urine Appearance Clear Urine Color Dark Yellow Stool Consistency Loose # Voids 1 # Bowel Movements 1 OBJ DATA Labs CBC & Chem 7: 05/18/22 08:33 05/18/22 08:33 Labs: Abnormal Lab Results 05/18/22 05/18/22 05/17/22 08:33 08:33 05:13 WBC 2.4 L RBC 3.31 L Hgb 10.1 L Hct 31.1 L RDW 16.7 H Plt Count 54 L MPV 12.4 H Eos % (Auto) 10.9 H Lymph # (Auto) 0.65 L Absolute Neutrophils 1.33 L Chloride 109 H 110 H Anion Gap 6.0 L 7.0 L BUN 24 H Glucose 143 H Uric Acid 8.2 H Calcium 7.9 L 7.9 L Magnesium 1.5 L Total Bilirubin 1.5 H Direct Bilirubin 0.4 H 0.6 H GGT 92 H 80 H AST 113 H 81 H ALT 47 H Total Protein 5.4 L Albumin 2.1 L 2.0 L Globulin 3.8 H Albumin/Globulin Ratio 0.6 L 0.6 L 05/17/22 05:13 WBC 2.9 L RBC 3.11 L Hgb 9.4 L Hct 28.9 L RDW 16.9 H Plt Count 50 L MPV 12.1 H Eos % (Auto) 10.1 H Lymph # (Auto) 0.81 L Absolute Neutrophils 1.49 L Chloride Anion Gap BUN Glucose Uric Acid Calcium Magnesium Total Bilirubin Direct Bilirubin GGT AST ALT Total Protein Albumin Globulin Albumin/Globulin Ratio Meds: Medications Acetaminophen (Acetaminophen 325 Mg Tablet) 650 mg PO Q6HP PRN; Protocol PRN Reason: Per Pain Protocol/Fever > 101 Albuterol/Ipratropium (Ipratropium/Albuterol 3 Ml Ampul.Neb) 3 ml NEB Q4HRT PRN PRN Reason: Wheezing Apixaban (Apixaban 5 Mg Tablet) 10 mg PO BID [facility] Stop: 05/25/22 20:59 Last Admin: 05/19/22 09:05 Dose: 10 mg Apixaban (Apixaban 5 Mg Tablet) 5 mg PO BID [facility] Duloxetine HCl (Duloxetine 30 Mg Capsule) 30 mg PO BID [facility] Last Admin: 05/19/22 09:04 Dose: 30 mg Furosemide (Furosemide 20 Mg Tablet) 40 mg PO QAM [facility] Last Admin: 05/19/22 09:04 Dose: 40 mg Magnesium Sulfate (Magnesium Sulfate) 2 gm in 50 mls @ 25 mls/hr IV 1415 [facility] Stop: 05/19/22 16:00 Lactulose (Lactulose 20 Gm/30 Ml Oral.Sharon) 30 gm PO DAILY [facility] Last Admin: 05/19/22 09:03 Dose: 30 gm Lactulose (Lactulose 20 Gm/30 Ml Oral.Sharon) 20 gm PO QID PRN PRN Reason: other Meloxicam (Meloxicam 7.5 Mg Tablet) 15 mg PO DAILY [facility] Last Admin: 05/19/22 09:04 Dose: 15 mg Methocarbamol (Methocarbamol 750 Mg Tablet) 750 mg PO Q8H PRN PRN Reason: pain, moderate Last Admin: 05/18/22 21:07 Dose: 750 mg Ondansetron HCl (Ondansetron 4 Mg/2 Ml Vial) 4 mg IV Q6HP PRN PRN Reason: Nausea And Vomiting Oxycodone HCl (Oxycodone Hcl 5 Mg Tablet) 10 mg PO Q6HP PRN; Protocol PRN Reason: Per Pain Protocol Last Admin: 05/19/22 12:15 Dose: 10 mg Pantoprazole Sodium (Pantoprazole 40 Mg Tablet) 40 mg PO QAMAC [facility] Last Admin: 05/19/22 08:03 Dose: 40 mg Quetiapine Fumarate (Quetiapine 100 Mg Tablet) 100 mg PO HS [facility] Last Admin: 05/18/22 21:08 Dose: 100 mg Sodium Chloride (0.9 % Sodium Chloride 10 Ml Syringe) 10 ml IV Q8 [facility] Last Admin: 05/19/22 08:13 Dose: 10 ml Spironolactone (Spironolactone 25 Mg Tablet) 100 mg PO DAILY [facility] Last Admin: 05/19/22 09:04 Dose: 100 mg Trazodone HCl (Trazodone Hcl 50 Mg Tablet) 25 mg PO HSP PRN PRN Reason: Insomnia Last Admin: 05/18/22 21:07 Dose: 25 mg A/P Narrative A/P Narrative: Assessment: 62-year-old male with a history of liver cirrhosis, chronic hepatitis C infection, alcohol use disorder, depression, anxiety admitted for abdominal distention and pain. CT abdomen pelvis revealed evidence of colitis of the ascending colon and cecum as well as nonocclusive thrombus in the portal vein. Patient underwent a paracentesis, awaiting ascites fluid analysis. The patient is currently on antibiotics for possible bacterial peritonitis as well as colitis. Patient is also on Lovenox for anticoagulation for the portal vein thrombus. #Resolved colitis of ascending colon and cecum #Nonocclusive portal vein thrombus #Chronic abdominal pain likely secondary to liver cirrhosis #Decompensated liver cirrhosis #Thrombocytopenia secondary to liver cirrhosis #Normocytic anemia #Peripheral eosinophilia #Leukopenia #Chronic hepatitis C infection #History of alcohol use disorder #Depression #Anxiety Plan -Continue ceftriaxone and Flagyl, treat for a total of 5 days -Monitor renal function, CBC. -Paracentesis as needed. -Low-dose Tylenol as needed, oxycodone as needed, scheduled meloxicam. -Continue Eliquis twice daily DVT dosing, discontinue Lovenox. -Continue Lasix to 40 mg daily and spironolactone to 100 mg daily. -Continue Cymbalta, Protonix, Seroquel, trazodone at bedtime. -Low-sodium diet. -PT following. -DVT prophylaxis: Eliquis -CODE STATUS: Full -Disposition: Home when pain adequately controlled on oral pain medications. Likely 6 months of anticoagulation for portal vein thrombus. Follow-up with GI after discharge for management of decompensated liver cirrhosis, portal vein thrombosis and possible colonoscopy if not recently performed. Time Spent With Patient Time: Total time spent is greater than 50% in coordination of care (as documented) at patient's floor/unit and/or counseling patient: QUALITY VTE Deep Vein Thrombosis/Pulmonary Embolism Present on Admission: No
--- NOTE | 2022-05-19 16:19 | Ultrasound Report ---
CLINICAL INFORMATION: Ascites evaluation-limited exam COMPARISON: None. FINDINGS: Only a small volume ascites is seen in the perihepatic and right lower quadrant region. It was felt inadequate to safely perform paracentesis.. IMPRESSION: Small amount of ascites. Paracentesis canceled Interpreted and Authenticated by: King Pires 05/19/22
[2022-05-19] MEDS: METHOCARBAMOL 750 MG TABLET PO PRN ×2 (16:35→20:58)
[2022-05-19] MEDS: QUEtiapine 100 MG TABLET PO SCH (20:54)
[2022-05-19] MEDS: traZODone HCL 50 MG TABLET PO PRN (20:58)
[2022-05-20] MEDS: oxyCODONE HCL 5 MG TABLET PO PRN ×3 (06:00→18:25)
[2022-05-20] MEDS: 0.9 % SODIUM CHLORIDE 10 ML SYRINGE IV SCH ×3 (06:01→20:39)
[2022-05-20 07:32] LABS: Basophils # (Auto) 0.03 K/mcL (0.00-0.30); Basophils % (Auto) 1.2 % (0.0-2.0); Eosinophils # (Auto) 0.23 K/mcL (0.00-0.70); Eosinophils % (Auto) 9.4 % (0.0-7.0); Hematocrit 29.1 % (40.1-51.0); Hemoglobin 9.6 g/dL (13.7-17.5); Lymphocytes # (Auto) 0.63 K/mcL (1.50-4.80); Lymphocytes % (Auto) 25.7 % (15.5-49.0); Mean Cell Volume 94.5 fL (80.0-100.0); Mean Platelet Volume 12.3 fL (7.4-10.4); Monocytes # (Auto) 0.17 K/mcL (0.10-0.90); Monocytes % (Auto) 6.9 % (1.0-12.0); Neutrophils % (Auto) 56.4 % (38.0-78.0); Platelet Count 47 K/mcL (140-440); RBC 3.08 M/mcL (4.63-6.08); Red Cell Distribution Width 17.2 % (11.5-14.5); WBC 2.5 K/mcL (4.5-11.0)
[2022-05-20 07:44] LABS: ALT/SGPT 43 U/L (<40); AST/SGOT 107 U/L (<40); Albumin 2.2 gm/dL (3.2-5.2); Albumin/Globulin Ratio 0.6 (1.0-2.3); Alkaline Phosphatase 117 U/L (39-117); Bilirubin,Direct 0.4 mg/dL (<0.3); Bilirubin,Total 0.8 mg/dL (0.1-1.0); Blood Urea Nitrogen 25 mg/dL (8-23); Calcium 8.1 mg/dL (8.6-10.4); Carbon Dioxide 20 mmol/L (22-30); Chloride 112 mmol/L (96-108); Globulin 3.5 gm/dL (2.2-3.7); Glomerular Filtration Rate 81; Glucose 92 mg/dL (70-105); Lactate Dehydrogenase 175 U/L (135-225); Phosphorous 3.2 mg/dL (2.5-4.5); Triglycerides 51 mg/dL (<150)
[2022-05-20] MEDS: PANTOPRAZOLE 40 MG TABLET PO SCH (08:18)
[2022-05-20] MEDS: LACTULOSE 20 GM/30 ML ORAL.SOL PO SCH ×4 (10:06→20:43)
[2022-05-20] MEDS: FUROSEMIDE 20 MG TABLET PO SCH (10:06)
[2022-05-20] MEDS: MELOXICAM 7.5 MG TABLET PO SCH (10:06)
[2022-05-20] MEDS: DULoxetine 30 MG CAPSULE PO SCH ×2 (10:06→20:39)
[2022-05-20] MEDS: SPIRONOLACTONE 25 MG TABLET PO SCH (10:07)
[2022-05-20] MEDS: APIXABAN 5 MG TABLET PO SCH ×2 (10:07→20:39)
--- NOTE | 2022-05-20 11:28 | Internal Med Progress Note ---
SUBJECTIVE Subjective Patient information: Note initiated : 05/20/22 at 11:18 am Service Date, if different from initiated Date: [] Patient: Josue Calvin 62 y/o M admitted on 05/14/22 for Fluid in ABD. Chief Complaint: [] Interval history: Mr. Calvin is a 62 year old M history of cirrhosis secondary to hepatitis C infections as well as alcoholism with associated ascites, depression with anxiety, presenting with abdominal distention and pain. He has been diagnosed with cirrhosis for years and he has been struggling with cirrhosis for the past 9 months. Last paracentesis was done in about a month ago at the end of the March this year. He presented to our ED today for worsening abdominal pain and distention. He is complain of 9 out of 10, kicking, constant abdominal pain mostly affecting his right upper quadrant and periumbilical region. He is complaining of associated nausea, vomiting, and decreased appetite. He denies any fever or chills. He denies any constipations or diarrhea. Status post therapeutic and diagnostic paracentesis with removal of 2 L of acetic fluid earlier this evening. Vital signs within normal limits. Labs significant for lack of leukocytosis with WBC 4.7. H&H 10.7 and 32.8, respectively. Creatinine 0.8. CT of the abdomen pelvis showing evidence of cecal and ascending colon 8 colitis as well as none occlusive thrombus in the portal vein. It also shows cirrhosis with splenomegaly and varices. 05/15: Afebrile overnight. WBC 3.3 this morning. H&H 9.7 and 28.9, respectively. Pending ascites fluid analysis. Blood culture and ascitic fluid cultures no growth today. Patient is coming of 8 out of 10 kicking constant pain in all abdominal quadrants. He is complaining of nausea denies any vomiting. Denies constipation or diarrhea. Tolerating clear liquid diet. Continue clear liquid diet and will advance when patient feels ready. Continue IV antibiotics with Rocephin and Flagyl. Continue therapeutic dose of Lovenox for portal vein fibrosis. 05/16: Abdominal pain present but the patient says this has improved since admission. Abdominal distention noted, may need another paracentesis soon. Recent ascites fluid analysis not yet complete, continues on ceftriaxone and Flagyl. 05/17: Vital stable overnight, persistent abdominal discomfort, will repeat CT abdomen pelvis today. Ascites fluid analysis not yet complete. The patient is also having liquidy stool in the setting of colitis will obtain a C. difficile screen. Continues on Lovenox for anticoagulation, likely transition to DOAC soon for portal vein thrombus anticoagulation. 05/18: CT abdomen pelvis was without contrast due to IV contrast shortage, no evidence of colitis on that scan. Ascites fluid analysis resulted, not consistent with bacterial peritonitis. Transition to Eliquis twice daily DVT dosing, discontin ue therapeutic Lovenox. Weaning IV morphine. Start regular low-dose low-sodium diet. 05/19: Discontinued IV morphine as needed, continue as needed oxycodone and low-dose Tylenol. Unable to perform paracentesis due to low fluid volume. 05/20: Ammonia level increased to 80, increased lactulose to 30 mL 3 times daily. Will check ammonia level tomorrow. Pain adequately controlled with oxycodone. Po tential discharge to home tomorrow if pain remains well controlled and ammonia trends back to normal level. Head: Atraumatic, normal inspection. Eyes: normal appearance, no scleral icterus. Neck: full ROM Respiratory: no respiratory distress. Cardiovascular: normal rate and rhythm, S1, S2. GI/Abdominal: Distended, mildly tender, no guarding. Extremities: full range of motion, nontender. Neurological: CN II-XII intact, intact motor, intact sensation. Psychiatric: normal mood. Skin: warm, normal color Constitutional Vitals: Vital Signs Temp Pulse Resp BP Pulse Ox O2 Del Method 97.2 F 66 16 105/61 94 05/20/22 07:53 05/20/22 07:53 05/20/22 07:53 05/20/22 07:53 05/20/22 07:53 05/20/22 07:53 Period Temp Pulse Resp BP Sys/Hodges Pulse Ox O2 Del Method O2 Flow Rate Last 24 Hr 97.2 F-98.6 F 66-84 14-20 92-111/58-66 93-96 Room Air-Room Air Intake and Output 05/19/22 05/20/22 05/20/22 21:59 05:59 13:59 Intake Total 390 750 Output Total 400 Balance -10 750 Weight 94.801 kg Intake & Output: Intake & Output 05/19/22 05/20/22 05/20/22 21:59 05:59 13:59 Intake Total 390 750 Output Total 400 Balance -10 750 Weight 94.801 kg Intake: IV 50 Oral 340 750 Output: Void Amount 400 Other: Stool Size Small Stool Consistency Loose # Voids 1 # Bowel Movements 1 4 OBJ DATA Labs CBC & Chem 7: 05/20/22 05:18 05/20/22 05:18 Labs: Abnormal Lab Results 05/20/22 05/20/22 05/20/22 05:18 05:18 05:18 WBC 2.5 L RBC 3.08 L Hgb 9.6 L Hct 29.1 L RDW 17.2 H Plt Count 47 L* MPV 12.3 H Eos % (Auto) 9.4 H Lymph # (Auto) 0.63 L Absolute Neutrophils 1.38 L Chloride 112 H Carbon Dioxide 20 L Anion Gap BUN 25 H Glucose Uric Acid 9.0 H Calcium 8.1 L Magnesium Direct Bilirubin 0.4 H GGT 104 H AST 107 H ALT 43 H Ammonia 80 H Total Protein 5.7 L Albumin 2.2 L Globulin Albumin/Globulin Ratio 0.6 L 05/18/22 05/18/22 08:33 08:33 WBC 2.4 L RBC 3.31 L Hgb 10.1 L Hct 31.1 L RDW 16.7 H Plt Count 54 L MPV 12.4 H Eos % (Auto) 10.9 H Lymph # (Auto) 0.65 L Absolute Neutrophils 1.33 L Chloride 109 H Carbon Dioxide Anion Gap 6.0 L BUN Glucose 143 H Uric Acid 8.2 H Calcium 7.9 L Magnesium 1.5 L Direct Bilirubin 0.4 H GGT 92 H AST 113 H ALT 47 H Ammonia Total Protein Albumin 2.1 L Globulin 3.8 H Albumin/Globulin Ratio 0.6 L Meds: Medications Acetaminophen (Acetaminophen 325 Mg Tablet) 325 mg PO Q6HP PRN; Protocol PRN Reason: Per Pain Protocol/Fever > 101 Albuterol/Ipratropium (Ipratropium/Albuterol 3 Ml Ampul.Neb) 3 ml NEB Q4HRT PRN PRN Reason: Wheezing Apixaban (Apixaban 5 Mg Tablet) 10 mg PO BID LAINA Stop: 05/25/22 20:59 Last Admin: 05/20/22 10:07 Dose: 10 mg Apixaban (Apixaban 5 Mg Tablet) 5 mg PO BID [facility] Duloxetine HCl (Duloxetine 30 Mg Capsule) 30 mg PO BID [facility] Last Admin: 05/20/22 10:06 Dose: 30 mg Furosemide (Furosemide 20 Mg Tablet) 40 mg PO QAM [facility] Last Admin: 05/20/22 10:06 Dose: 40 mg Lactulose (Lactulose 20 Gm/30 Ml Oral.Sharon) 20 gm PO QID PRN PRN Reason: other Lactulose (Lactulose 20 Gm/30 Ml Oral.Sharon) 30 gm PO TID [facility] Last Admin: 05/20/22 10:06 Dose: 30 gm Meloxicam (Meloxicam 7.5 Mg Tablet) 15 mg PO DAILY [facility] Last Admin: 05/20/22 10:06 Dose: 15 mg Methocarbamol (Methocarbamol 750 Mg Tablet) 750 mg PO Q8H PRN PRN Reason: pain, moderate Last Admin: 05/19/22 20:58 Dose: 750 mg Ondansetron HCl (Ondansetron 4 Mg/2 Ml Vial) 4 mg IV Q6HP PRN PRN Reason: Nausea And Vomiting Oxycodone HCl (Oxycodone Hcl 5 Mg Tablet) 10 mg PO Q6HP PRN; Protocol PRN Reason: Per Pain Protocol Last Admin: 05/20/22 06:00 Dose: 10 mg Pantoprazole Sodium (Pantoprazole 40 Mg Tablet) 40 mg PO QAMAC [facility] Last Admin: 05/20/22 08:18 Dose: 40 mg Quetiapine Fumarate (Quetiapine 100 Mg Tablet) 100 mg PO HS [facility] Last Admin: 05/19/22 20:54 Dose: 100 mg Sodium Chloride (0.9 % Sodium Chloride 10 Ml Syringe) 10 ml IV Q8 [facility] Last Admin: 05/20/22 06:01 Dose: 10 ml Spironolactone (Spironolactone 25 Mg Tablet) 100 mg PO DAILY [facility] Last Admin: 05/20/22 10:07 Dose: 100 mg Trazodone HCl (Trazodone Hcl 50 Mg Tablet) 25 mg PO HSP PRN PRN Reason: Insomnia Last Admin: 05/19/22 20:58 Dose: 25 mg A/P Narrative A/P Narrative: Assessment: 62-year-old male with a history of liver cirrhosis, chronic hepatitis C infection, alcohol use disorder, depression, anxiety admitted for abdominal distention and pain. CT abdomen pelvis revealed evidence of colitis of the ascending colon and cecum as well as nonocclusive thrombus in the portal vein. Patient underwent a paracentesis, ascites fluid was not consistent with bacterial peritonitis. The patient completed antibiotic treatment for colitis. He was initially treated with Lovenox for the portal vein thrombus, later transition to Eliquis. The patient was weaned off IV morphine, continued on low-dose Tylenol and oxycodone for abdominal pain which the patient has at baseline but was exacerbated by colitis. Ascites remained stable after Lasix and spironolactone were increased to 40 mg and 100 mg daily, respectively. Propranolol was held due to the initial concern for bacterial peritonitis as well as the increase in diuretic doses. The patient had an increase in ammonia level, lactulose dosing frequency was increased. At this time, the main medical issue is the elevated ammonia level and pain control. #Resolved colitis of ascending colon and cecum #Nonocclusive portal vein thrombus #Chronic abdominal pain likely secondary to liver cirrhosis #Decompensated liver cirrhosis #Thrombocytopenia secondary to liver cirrhosis #Normocytic anemia #Peripheral eosinophilia #Leukopenia #Chronic hepatitis C infection #History of alcohol use disorder #Depression #Anxiety Plan -Increase lactulose to 30 mL 3 times daily and as needed lactulose for 2-3 loose bowel movements per day. -Follow ammonia level tomorrow. -Completed ceftriaxone and Flagyl for colitis. -Outpatient paracentesis as needed. -Low-dose Tylenol as needed, oxycodone as needed, scheduled meloxicam. -Continue Eliquis twice daily DVT dosing for portal vein thrombus. -Continue Lasix to 40 mg daily and spironolactone to 100 mg daily. -Continue Cymbalta, Protonix, Seroquel, trazodone at bedtime. -Holding home propranolol for now due to recent increase in diuretic doses. -Low-sodium diet. -PT following. -DVT prophylaxis: Eliquis -CODE STATUS: Full -Disposition: Home when pain adequately controlled on oral pain medications and ammonia level normal. Planning for 6 months of anticoagulation for portal vein thrombus. Follow-up with GI after discharge. Time Spent With Patient Time: Total time spent is greater than 50% in coordination of care (as documented) at patient's floor/unit and/or counseling patient: QUALITY VTE Deep Vein Thrombosis/Pulmonary Embolism Present on Admission: No
--- NOTE | 2022-05-20 13:14 | Internal Med Progress Note ---
SUBJECTIVE Subjective Patient information: Note initiated : 05/20/22 at 1:11 pm Service Date, if different from initiated Date: [] Patient: Josue Calvin 62 y/o M admitted on 05/14/22 for Fluid in ABD. Chief Complaint: [] Interval history: Mr. Calvin is a 62 year old M history of cirrhosis secondary to hepatitis C infections as well as alcoholism with associated ascites, depression with anxiety, presenting with abdominal distention and pain. He has been diagnosed with cirrhosis for years and he has been struggling with cirrhosis for the past 9 months. Last paracentesis was done in about a month ago at the end of the March this year. He presented to our ED today for worsening abdominal pain and distention. He is complain of 9 out of 10, kicking, constant abdominal pain mostly affecting his right upper quadrant and periumbilical region. He is complaining of associated nausea, vomiting, and decreased appetite. He denies any fever or chills. He denies any constipations or diarrhea. Status post therapeutic and diagnostic paracentesis with removal of 2 L of acetic fluid earlier this evening. Vital signs within normal limits. Labs significant for lack of leukocytosis with WBC 4.7. H&H 10.7 and 32.8, respectively. Creatinine 0.8. CT of the abdomen pelvis showing evidence of cecal and ascending colon 8 colitis as well as none occlusive thrombus in the portal vein. It also shows cirrhosis with splenomegaly and varices. 05/15: Afebrile overnight. WBC 3.3 this morning. H&H 9.7 and 28.9, respectively. Pending ascites fluid analysis. Blood culture and ascitic fluid cultures no growth today. Patient is coming of 8 out of 10 kicking constant pain in all abdominal quadrants. He is complaining of nausea denies any vomiting. Denies constipation or diarrhea. Tolerating clear liquid diet. Continue clear liquid diet and will advance when patient feels ready. Continue IV antibiotics with Rocephin and Flagyl. Continue therapeutic dose of Lovenox for portal vein fibrosis. 05/16: Abdominal pain present but the patient says this has improved since admission. Abdominal distention noted, may need another paracentesis soon. Recent ascites fluid analysis not yet complete, continues on ceftriaxone and Flagyl. 05/17: Vital stable overnight, persistent abdominal discomfort, will repeat CT abdomen pelvis today. Ascites fluid analysis not yet complete. The patient is also having liquidy stool in the setting of colitis will obtain a C. difficile screen. Continues on Lovenox for anticoagulation, likely transition to DOAC soon for portal vein thrombus anticoagulation. 05/18: CT abdomen pelvis was without contrast due to IV contrast shortage, no evidence of colitis on that scan. Ascites fluid analysis resulted, not consistent with bacterial peritonitis. Transition to Eliquis twice daily DVT dosing, discontinu e therapeutic Lovenox. Weaning IV morphine. Start regular low-dose low-sodium diet. 05/19: Discontinued IV morphine as needed, continue as needed oxycodone and low-dose Tylenol. Unable to perform paracentesis due to low fluid volume. 05/20: Ammonia level increased to 80, increased lactulose to 30 mL 3 times daily. Will check ammonia level tomorrow. Pain adequately controlled with oxycodone. Pot ential discharge to home tomorrow if pain remains well controlled and ammonia trends back to normal level. 05/21 Constitutional Vitals: Vital Signs Temp Pulse Resp BP Pulse Ox O2 Del Method 97.6 F 70 16 109/66 93 05/20/22 12:00 05/20/22 12:00 05/20/22 12:00 05/20/22 12:00 05/20/22 12:00 05/20/22 12:00 Period Temp Pulse Resp BP Sys/Hodges Pulse Ox O2 Del Method O2 Flow Rate Last 24 Hr 97.2 F-98.6 F 66-84 16-20 100-111/58-66 93-96 Room Air-Room Air Intake and Output 05/19/22 05/20/22 05/20/22 21:59 05:59 13:59 Intake Total 390 750 360 Output Total 400 Balance -10 750 360 Weight 94.801 kg Intake & Output: Intake & Output 05/19/22 05/20/22 05/20/22 21:59 05:59 13:59 Intake Total 390 750 360 Output Total 400 Balance -10 750 360 Weight 94.801 kg Intake: IV 50 Oral 340 750 360 Output: Void Amount 400 Other: Meal Breakfast Percent of Meal Consumed 100% Stool Size Small Stool Consistency Loose # Voids 1 # Bowel Movements 1 4 Exam: General: Alert, Awake, No acute Distress Eyes/N/T: EOMI, Head/Neck: neck supple, CV: RRR, No murmurs, Pulm: Clear b/l, no wheezing/rhonchi/rales Abd: Distended, mildly tender, no guarding, +BS x4 Ext: no clubbing/cyanosis/edema Neuro: Alert, no focal deficits, moves all extremities, Skin: warm/dry OBJ DATA Labs CBC & Chem 7: 05/20/22 05:18 05/20/22 05:18 Labs: Abnormal Lab Results 05/20/22 05/20/22 05/20/22 05:18 05:18 05:18 WBC 2.5 L RBC 3.08 L Hgb 9.6 L Hct 29.1 L RDW 17.2 H Plt Count 47 L* MPV 12.3 H Eos % (Auto) 9.4 H Lymph # (Auto) 0.63 L Absolute Neutrophils 1.38 L Chloride 112 H Carbon Dioxide 20 L Anion Gap BUN 25 H Glucose Uric Acid 9.0 H Calcium 8.1 L Magnesium Direct Bilirubin 0.4 H GGT 104 H AST 107 H ALT 43 H Ammonia 80 H Total Protein 5.7 L Albumin 2.2 L Globulin Albumin/Globulin Ratio 0.6 L 05/18/22 05/18/22 08:33 08:33 WBC 2.4 L RBC 3.31 L Hgb 10.1 L Hct 31.1 L RDW 16.7 H Plt Count 54 L MPV 12.4 H Eos % (Auto) 10.9 H Lymph # (Auto) 0.65 L Absolute Neutrophils 1.33 L Chloride 109 H Carbon Dioxide Anion Gap 6.0 L BUN Glucose 143 H Uric Acid 8.2 H Calcium 7.9 L Magnesium 1.5 L Direct Bilirubin 0.4 H GGT 92 H AST 113 H ALT 47 H Ammonia Total Protein Albumin 2.1 L Globulin 3.8 H Albumin/Globulin Ratio 0.6 L Meds: Medications Acetaminophen (Acetaminophen 325 Mg Tablet) 325 mg PO Q6HP PRN; Protocol PRN Reason: Per Pain Protocol/Fever > 101 Albuterol/Ipratropium (Ipratropium/Albuterol 3 Ml Ampul.Neb) 3 ml NEB Q4HRT PRN PRN Reason: Wheezing Apixaban (Apixaban 5 Mg Tablet) 10 mg PO BID [facility]INA Stop: 05/25/22 20:59 Last Admin: 05/20/22 10:07 Dose: 10 mg Apixaban (Apixaban 5 Mg Tablet) 5 mg PO BID [facility] Duloxetine HCl (Duloxetine 30 Mg Capsule) 30 mg PO BID [facility] Last Admin: 05/20/22 10:06 Dose: 30 mg Furosemide (Furosemide 20 Mg Tablet) 40 mg PO QAM [facility] Last Admin: 05/20/22 10:06 Dose: 40 mg Lactulose (Lactulose 20 Gm/30 Ml Oral.Sharon) 20 gm PO QID PRN PRN Reason: other Lactulose (Lactulose 20 Gm/30 Ml Oral.Sharon) 30 gm PO TID [facility] Last Admin: 05/20/22 10:06 Dose: 30 gm Meloxicam (Meloxicam 7.5 Mg Tablet) 15 mg PO DAILY [facility] Last Admin: 05/20/22 10:06 Dose: 15 mg Methocarbamol (Methocarbamol 750 Mg Tablet) 750 mg PO Q8H PRN PRN Reason: pain, moderate Last Admin: 05/19/22 20:58 Dose: 750 mg Ondansetron HCl (Ondansetron 4 Mg/2 Ml Vial) 4 mg IV Q6HP PRN PRN Reason: Nausea And Vomiting Oxycodone HCl (Oxycodone Hcl 5 Mg Tablet) 10 mg PO Q6HP PRN; Protocol PRN Reason: Per Pain Protocol Last Admin: 05/20/22 12:29 Dose: 10 mg Pantoprazole Sodium (Pantoprazole 40 Mg Tablet) 40 mg PO QAMAC [facility] Last Admin: 05/20/22 08:18 Dose: 40 mg Quetiapine Fumarate (Quetiapine 100 Mg Tablet) 100 mg PO [facility] Last Admin: 05/19/22 20:54 Dose: 100 mg Sodium Chloride (0.9 % Sodium Chloride 10 Ml Syringe) 10 ml IV Q8 [facility] Last Admin: 05/20/22 12:36 Dose: 10 ml Spironolactone (Spironolactone 25 Mg Tablet) 100 mg PO DAILY [facility] Last Admin: 05/20/22 10:07 Dose: 100 mg Trazodone HCl (Trazodone Hcl 50 Mg Tablet) 25 mg PO HSP PRN PRN Reason: Insomnia Last Admin: 05/19/22 20:58 Dose: 25 mg A/P Narrative A/P Narrative: A: #colitis of ascending colon and cecum: resolved #Nonocclusive portal vein thrombus: #Chronic abdominal pain likely secondary to liver cirrhosis #Decompensated liver cirrhosis #Thrombocytopenia secondary to liver cirrhosis #Normocytic anemia #Peripheral eosinophilia #Leukopenia #Chronic hepatitis C infection #History of alcohol use disorder #Depression #Anxiety Plan -Increased lactulose to 30 mL 3 times daily and as needed lactulose for 2-3 loose bowel movements per day. -Follow ammonia level tomorrow. -Completed ceftriaxone and Flagyl for colitis. -Outpatient paracentesis as needed. -Low-dose Tylenol as needed, oxycodone as needed, scheduled meloxicam. -Continue Eliquis twice daily DVT dosing for portal vein thrombus. -Continue Lasix to 40 mg daily and spironolactone to 100 mg daily. -Continue Cymbalta, Protonix, Seroquel, trazodone at bedtime. -Holding home propranolol for now due to recent increase in diuretic doses. -Low-sodium diet. -PT following -Disposition: Home when pain adequately controlled on oral pain medications and ammonia level normal. Planning for 6 months of anticoagulation for portal vein thrombus. Follow-up with GI after discharge. -DVT prophylaxis: Eliquis CODE STATUS: Full Disposition: Home when pain adequately controlled on oral pain medications and ammonia level normal. Planning for 6 months of anticoagulation for portal vein thrombus. Follow-up with GI after discharge. Time Spent With Patient Time: Total time spent is greater than 50% in coordination of care (as documented) at patient's floor/unit and/or counseling patient: QUALITY VTE Deep Vein Thrombosis/Pulmonary Embolism Present on Admission: No
--- NOTE | 2022-05-20 15:09 | Discharge Summary ---
Discharge Provider Provider IMPORTANT FOLLOW-UP INFORMATION FOR PCP: Patient information: Note initiated : 05/20/22 at 3:06 pm Service Date, if different from initiated Date: [] Patient: Josue Calvin 62 y/o M admitted on 05/14/22 for Fluid in ABD. Chief Complaint: [] Date of admission: 05/14/22 22:40 Discharge date: 05/22/22 Primary care physician: Torin Rubin PA-C Consults: 05/14/22 Consult to Physician [CONS] Stat Comment: Consulting Provider: Seb Baca Reason For Exam: Physician to Consult COURSE Hospital Course Hospital course: Interval history: Mr. Calvin is a 62 year old M history of cirrhosis secondary to hepatitis C infections as well as alcoholism with associated ascites, depression with anxiety, presenting with abdominal distention and pain. He has been diagnosed with cirrhosis for years and he has been struggling with cirrhosis for the past 9 months. Last paracentesis was done in about a month ago at the end of the March this year. He presented to our ED today for worsening abdominal pain and distention. He is complain of 9 out of 10, kicking, constant abdominal pain mostly affecting his right upper quadrant and periumbilical region. He is complaining of associated nausea, vomiting, and decreased appetite. He denies any fever or chills. He denies any constipations or diarrhea. Status post therapeutic and diagnostic paracentesis with removal of 2 L of acetic fluid earlier this evening. Vital signs within normal limits. Labs significant for lack of leukocytosis with WBC 4.7. H&H 10.7 and 32.8, respectively. Creatinine 0.8. CT of the abdomen pelvis showing evidence of cecal and ascending colon 8 colitis as well as none occlusive thrombus in the portal vein. It also shows cirrhosis with splenomegaly and varices. 9/3: Afebrile overnight. WBC 3.3 this morning. H&H 9.7 and 28.9, respectively. Pending ascites fluid analysis. Blood culture and ascitic fluid cultures no growth today. Patient is coming of 8 out of 10 kicking constant pain in all abdominal quadrants. He is complaining of nausea denies any vomiting. Denies constipation or diarrhea. Tolerating clear liquid diet. Continue clear liquid diet and will advance when patient feels ready. Continue IV antibiotics with Rocephin and Flagyl. Continue therapeutic dose of Lovenox for portal vein fibrosis. 05/16: Abdominal pain present but the patient says this has improved since admission. Abdominal distention noted, may need another paracentesis soon. Recent ascites fluid analysis not yet complete, continues on ceftriaxone and Flagyl. 05/17: Vital stable overnight, persistent abdominal discomfort, will repeat CT abdomen pelvis today. Ascites fluid analysis not yet complete. The patient is also having liquidy stool in the setting of colitis will obtain a C. difficile screen. Continues on Lovenox for anticoagulation, likely transition to DOAC soon for portal vein thrombus anticoagulation. 05/18: CT abdomen pelvis was without contrast due to IV contrast shortage, no evidence of colitis on that scan. Ascites fluid analysis resulted, not consistent with bacterial peritonitis. Transition to Eliquis twice daily DVT dosing, discont inue therapeutic Lovenox. Weaning IV morphine. Start regular low-dose low- sodium diet. 05/19: Discontinued IV morphine as needed, continue as needed oxycodone and low-dose Tylenol. Unable to perform paracentesis due to low fluid volume. 05/20: Ammonia level increased to 80, increased lactulose to 30 mL 3 times daily. Will check ammonia level tomorrow. Pain adequately controlled with oxycodone. Potential discharge to home tomorrow if pain remains well controlled and ammonia trends back to normal level. 05/21 Ammonia level increased to 100. We will add rifaximin. Patient does not seem to be altered. Does complain of abdominal pain. Occasional nausea, no vomiting 05/22 Tried low-dose MS Contin yesterday with good results as patient says he was not getting any relief from the oxycodone. Patient feeling better today. Ammonia within normal limits and seemed to respond well to the rifaximin. Stressed importance for him to follow-up with GI. High risk for readmission given comorbidities A: #colitis of ascending colon and cecum: resolved #Nonocclusive portal vein thrombus: #Chronic abdominal pain likely secondary to liver cirrhosis #Decompensated liver cirrhosis with elevated ammonia #Thrombocytopenia: secondary to liver cirrhosis #Normocytic anemia: #Leukopenia, acute on chronic: #Chronic hepatitis C infection #History of alcohol use disorder #Depression/Anxiety: Plan -Increased lactulose to 30 mL 3 times daily and as needed lactulose for 2-3 loose bowel movements per day. -added rifaximin -Outpatient paracentesis as needed. -Continue Eliquis for portal vein thrombus. -Continue Lasix to 40 mg daily and spironolactone to 100 mg daily. -Follow-up with GI after discharge. Discharge diagnosis: Ascending colitis portal vein thrombosis Secondary discharge diagnosis: Chronic pain decompensated liver cirrhosis thrombocytopenia anemia leukopenia chronic hepatitis C history of alcohol use disorder depression anxiety Time Spent with Patient Time attestation: Total time spent providing and/or coordinating discharge services: Time spent: Greater than 30 minutes EXAM Constitutional Vitals: Temp Pulse Resp BP Pulse Ox O2 Del Method 97.6 F 70 16 109/66 93 05/20/22 12:00 05/20/22 12:00 05/20/22 12:00 05/20/22 12:00 05/20/22 12:00 05/20/22 12:00 Discharge Data Data Completed and Pending Labs on day of discharge: Labs from last 24 hours 05/20/22 05/20/22 05/20/22 05:18 05:18 05:18 WBC 2.5 L RBC 3.08 L Hgb 9.6 L Hct 29.1 L MCV 94.5 MCH 31.2 MCHC 33.0 RDW 17.2 H Plt Count 47 L* MPV 12.3 H Immature Gran % (Auto) 0.4 Neut % (Auto) 56.4 Lymph % (Auto) 25.7 [place] % (Auto) 6.9 Eos % (Auto) 9.4 H Baso % (Auto) 1.2 Lymph # (Auto) 0.63 L [place] # (Auto) 0.17 Eos # (Auto) 0.23 Baso # (Auto) 0.03 Immature Gran # 0.01 Absolute Neutrophils 1.38 L Sodium 140 Potassium 4.1 Chloride 112 H Carbon Dioxide 20 L Anion Gap 8.0 BUN 25 H Creatinine 1.0 GFR Calculation 81 Glucose 92 Uric Acid 9.0 H Calcium 8.1 L Phosphorus 3.2 Magnesium 2.0 Total Bilirubin 0.8 Direct Bilirubin 0.4 H GGT 104 H AST 107 H ALT 43 H Alkaline Phosphatase 117 Ammonia 80 H Lactate Dehydrogenase 175 Total Protein 5.7 L Albumin 2.2 L Globulin 3.5 Albumin/Globulin Ratio 0.6 L Triglycerides 51 Discharge Plan Patient/Caregiver Discharge Instructions Activity: increase activity as tolerated Diet: Cardiac Activity Restrictions/Additional Instructions: Referral to gastroenterology in 1 to 2 weeks for colitis, portal vein thrombosis, cirrhosis Prescriptions: New furosemide 20 mg Tablet 40 mg PO QAM Qty: 30 0RF lactulose 20 gram/30 mL Solution 30 g PO TID Qty: 1200 0RF Rx Instructions: goal bowel movement per day is 2-3, hold for >3. apixaban 5 mg Tablet 5 mg PO BID Qty: 60 0RF Rx Instructions: take 10mg twice daily to 05/25/2022, then take 5mg twice daily thereafter morphine 15 mg Tablet Extended Release 15 mg PO 0600,1800 PRN (Reason: pain) Qty: 10 0RF Xifaxan 550 mg Tablet 550 mg PO BID Qty: 60 0RF Continued quetiapine 100 mg tablet 100 mg PO HS Qty: 30 1RF methocarbamol 750 mg tablet 750 mg PO Q8H PRN (Reason: pain, moderate) Qty: 30 1RF duloxetine 30 mg capsule,delayed release(DR/EC) 30 mg PO BID Qty: 60 0RF Changed spironolactone 50 mg tablet 100 mg PO QDAY Qty: 10 0RF oxycodone 5 mg tablet 5 mg PO TID PRN (Reason: pain) 28 Days Qty: 84 0RF meloxicam 15 mg tablet 15 mg PO QDAY PRN (Reason: pain) Qty: 1 0RF Follow Up Plan Follow up with: Torin Rubin PA-C [Primary Care Provider] - Patient Disposition: Home Health Service Rehab Potential: Undetermined Overall status at discharge: patient is progressing back to baseline Discharge Orders: Discharge Order (Routine); Ordered 05/22/22 [facility] Th[facility]/Pulmonary Embolism Present on Admission: No
[2022-05-20] MEDS: QUEtiapine 100 MG TABLET PO SCH (20:39)
[2022-05-20] MEDS ORDERED: ONDANSETRON 4 MG ODT TABLET SL PRN (22:00)
[2022-05-21] MEDS: oxyCODONE HCL 5 MG TABLET PO PRN ×4 (00:23→23:43)
[2022-05-21 07:10] LABS: Basophils # (Auto) 0.03 K/mcL (0.00-0.30); Basophils % (Auto) 1.1 % (0.0-2.0); Eosinophils # (Auto) 0.26 K/mcL (0.00-0.70); Eosinophils % (Auto) 9.7 % (0.0-7.0); Hematocrit 29.1 % (40.1-51.0); Hemoglobin 9.2 g/dL (13.7-17.5); Lymphocytes # (Auto) 0.56 K/mcL (1.50-4.80); Lymphocytes % (Auto) 20.9 % (15.5-49.0); Mean Cell Volume 95.7 fL (80.0-100.0); Mean Corpuscular HGB Conc 31.6 g/dL (31.0-36.0); Mean Platelet Volume 12.1 fL (7.4-10.4); Monocytes % (Auto) 7.5 % (1.0-12.0); Neutrophils % (Auto) 60.8 % (38.0-78.0); Platelet Count 51 K/mcL (140-440); RBC 3.04 M/mcL (4.63-6.08); Red Cell Distribution Width 17.6 % (11.5-14.5); WBC 2.7 K/mcL (4.5-11.0)
[2022-05-21] MEDS: PANTOPRAZOLE 40 MG TABLET PO SCH (07:33)
[2022-05-21 07:35] LABS: ALT/SGPT 40 U/L (<40); AST/SGOT 108 U/L (<40); Albumin/Globulin Ratio 0.5 (1.0-2.3); Alkaline Phosphatase 132 U/L (39-117); Bilirubin,Direct 0.3 mg/dL (<0.3); Bilirubin,Total 0.8 mg/dL (0.1-1.0); Blood Urea Nitrogen 29 mg/dL (8-23); Calcium 8.1 mg/dL (8.6-10.4); Carbon Dioxide 21 mmol/L (22-30); Chloride 107 mmol/L (96-108); Globulin 3.7 gm/dL (2.2-3.7); Glomerular Filtration Rate 92; Glucose 106 mg/dL (70-105); Lactate Dehydrogenase 164 U/L (135-225); Triglycerides 56 mg/dL (<150); Uric Acid 8.9 mg/dL (2.5-8.0)
[2022-05-21] MEDS: SPIRONOLACTONE 25 MG TABLET PO SCH (08:13)
[2022-05-21] MEDS: MELOXICAM 7.5 MG TABLET PO SCH (08:13)
[2022-05-21] MEDS: DULoxetine 30 MG CAPSULE PO SCH ×2 (08:14→20:23)
[2022-05-21] MEDS: FUROSEMIDE 20 MG TABLET PO SCH (08:14)
[2022-05-21] MEDS: LACTULOSE 20 GM/30 ML ORAL.SOL PO SCH ×3 (08:15→20:24)
[2022-05-21] MEDS: METHOCARBAMOL 750 MG TABLET PO PRN ×2 (08:15→20:23)
[2022-05-21] MEDS: APIXABAN 5 MG TABLET PO SCH ×2 (08:18→20:23)
--- NOTE | 2022-05-21 08:40 | Internal Med Progress Note ---
SUBJECTIVE Subjective Patient information: Note initiated : 05/21/22 at 8:33 am Service Date, if different from initiated Date: [] Patient: Josue Calvin 62 y/o M admitted on 05/14/22 for Fluid in ABD. Chief Complaint: [] Interval history: Mr. Calvin is a 62 year old M history of cirrhosis secondary to hepatitis C infections as well as alcoholism with associated ascites, depression with anxiety, presenting with abdominal distention and pain. He has been diagnosed with cirrhosis for years and he has been struggling with cirrhosis for the past 9 months. Last paracentesis was done in about a month ago at the end of the March this year. He presented to our ED today for worsening abdominal pain and distention. He is complain of 9 out of 10, kicking, constant abdominal pain mostly affecting his right upper quadrant and periumbilical region. He is complaining of associated nausea, vomiting, and decreased appetite. He denies any fever or chills. He denies any constipations or diarrhea. Status post therapeutic and diagnostic paracentesis with removal of 2 L of acetic fluid earlier this evening. Vital signs within normal limits. Labs significant for lack of leukocytosis with WBC 4.7. H&H 10.7 and 32.8, respectively. Creatinine 0.8. CT of the abdomen pelvis showing evidence of cecal and ascending colon 8 colitis as well as none occlusive thrombus in the portal vein. It also shows cirrhosis with splenomegaly and varices. 05/15: Afebrile overnight. WBC 3.3 this morning. H&H 9.7 and 28.9, respectively. Pending ascites fluid analysis. Blood culture and ascitic fluid cultures no growth today. Patient is coming of 8 out of 10 kicking constant pain in all abdominal quadrants. He is complaining of nausea denies any vomiting. Denies constipation or diarrhea. Tolerating clear liquid diet. Continue clear liquid diet and will advance when patient feels ready. Continue IV antibiotics with Rocephin and Flagyl. Continue therapeutic dose of Lovenox for portal vein fibrosis. 05/16: Abdominal pain present but the patient says this has improved since admission. Abdominal distention noted, may need another paracentesis soon. Recent ascites fluid analysis not yet complete, continues on ceftriaxone and Flagyl. 05/17: Vital stable overnight, persistent abdominal discomfort, will repeat CT abdomen pelvis today. Ascites fluid analysis not yet complete. The patient is also having liquidy stool in the setting of colitis will obtain a C. difficile screen. Continues on Lovenox for anticoagulation, likely transition to DOAC soon for portal vein thrombus anticoagulation. 05/18: CT abdomen pelvis was without contrast due to IV contrast shortage, no evidence of colitis on that scan. Ascites fluid analysis resulted, not consistent with bacterial peritonitis. Transition to Eliquis twice daily DVT dosing, discontinu e therapeutic Lovenox. Weaning IV morphine. Start regular low-dose low-sodium diet. 05/19: Discontinued IV morphine as needed, continue as needed oxycodone and low-dose Tylenol. Unable to perform paracentesis due to low fluid volume. 05/20: Ammonia level increased to 80, increased lactulose to 30 mL 3 times daily. Will check ammonia level tomorrow. Pain adequately controlled with oxycodone. Pot ential discharge to home tomorrow if pain remains well controlled and ammonia trends back to normal level. 05/21 Ammonia level increased to 100. We will add rifaximin. Patient does not seem to be altered. Does complain of abdominal pain. Occasional nausea, no vomiting Review of Systems: denies headache/fever/chills/vomiting/chest pain/cough/dyspnea/diarrhea. Otherwise see above. Constitutional Vitals: Vital Signs Temp Pulse Resp BP Pulse Ox O2 Del Method 98.3 F 75 16 116/71 95 05/21/22 07:23 05/21/22 03:30 05/21/22 07:23 05/21/22 07:23 05/21/22 07:23 05/21/22 07:23 Period Temp Pulse Resp BP Sys/Hodges Pulse Ox O2 Del Method O2 Flow Rate Last 24 Hr 97.6 F-98.3 F 70-86 16-20 104-121/62-76 93-95 Room Air-Room Air Intake and Output 05/20/22 05/21/22 05/21/22 21:59 05:59 13:59 Intake Total 800 800 Output Total 950 50 Balance -150 750 Weight 92.261 kg Intake & Output: Intake & Output 05/20/22 05/21/22 05/21/22 21:59 05:59 13:59 Intake Total 800 800 Output Total 950 50 Balance -150 750 Weight 92.261 kg Intake: Oral 800 800 Output: Void Amount 950 50 Other: Urine Appearance Clear Clear Urine Color Dark Yellow Dark Yellow Urine Odor Normal Stool Size Moderate Stool Color Brown Stool Consistency Loose # Voids 1 # Bowel Movements 2 1 Exam: General: Alert, Awake, No acute Distress Eyes/N/T: EOMI, Head/Neck: neck supple, CV: RRR, No murmurs, Pulm: Clear b/l, no wheezing/rhonchi/rales Abd: Distended, mildly tender, no guarding, +BS x4 Ext: no clubbing/cyanosis/edema Neuro: Alert, no focal deficits, moves all extremities, Skin: warm/dry OBJ DATA Labs CBC & Chem 7: 05/21/22 05:13 05/21/22 05:12 Labs: Abnormal Lab Results 05/21/22 05/21/22 05/21/22 05:13 05:12 05:12 WBC 2.7 L RBC 3.04 L Hgb 9.2 L Hct 29.1 L RDW 17.6 H Plt Count 51 L MPV 12.1 H Eos % (Auto) 9.7 H Lymph # (Auto) 0.56 L Absolute Neutrophils 1.63 L Chloride Carbon Dioxide 21 L Anion Gap 7.0 L BUN 29 H Glucose 106 H Uric Acid 8.9 H Calcium 8.1 L Magnesium Direct Bilirubin 0.3 H GGT 99 H AST 108 H ALT 40 H Alkaline Phosphatase 132 H Ammonia 101 H Total Protein 5.7 L Albumin 2.0 L Globulin Albumin/Globulin Ratio 0.5 L 05/20/22 05/20/22 05/20/22 05:18 05:18 05:18 WBC 2.5 L RBC 3.08 L Hgb 9.6 L Hct 29.1 L RDW 17.2 H Plt Count 47 L* MPV 12.3 H Eos % (Auto) 9.4 H Lymph # (Auto) 0.63 L Absolute Neutrophils 1.38 L Chloride 112 H Carbon Dioxide 20 L Anion Gap BUN 25 H Glucose Uric Acid 9.0 H Calcium 8.1 L Magnesium Direct Bilirubin 0.4 H GGT 104 H AST 107 H ALT 43 H Alkaline Phosphatase Ammonia 80 H Total Protein 5.7 L Albumin 2.2 L Globulin Albumin/Globulin Ratio 0.6 L 05/18/22 05/18/22 08:33 08:33 WBC 2.4 L RBC 3.31 L Hgb 10.1 L Hct 31.1 L RDW 16.7 H Plt Count 54 L MPV 12.4 H Eos % (Auto) 10.9 H Lymph # (Auto) 0.65 L Absolute Neutrophils 1.33 L Chloride 109 H Carbon Dioxide Anion Gap 6.0 L BUN Glucose 143 H Uric Acid 8.2 H Calcium 7.9 L Magnesium 1.5 L Direct Bilirubin 0.4 H GGT 92 H AST 113 H ALT 47 H Alkaline Phosphatase Ammonia Total Protein Albumin 2.1 L Globulin 3.8 H Albumin/Globulin Ratio 0.6 L Meds: Medications Acetaminophen (Acetaminophen 325 Mg Tablet) 325 mg PO Q6HP PRN; Protocol PRN Reason: Per Pain Protocol/Fever > 101 Albuterol/Ipratropium (Ipratropium/Albuterol 3 Ml Ampul.Neb) 3 ml NEB Q4HRT PRN PRN Reason: Wheezing Apixaban (Apixaban 5 Mg Tablet) 10 mg PO BID [facility] Stop: 05/25/22 20:59 Last Admin: 05/21/22 08:18 Dose: 10 mg Apixaban (Apixaban 5 Mg Tablet) 5 mg PO BID [facility] Duloxetine HCl (Duloxetine 30 Mg Capsule) 30 mg PO BID [facility] Last Admin: 05/21/22 08:14 Dose: 30 mg Furosemide (Furosemide 20 Mg Tablet) 40 mg PO QAM [facility] Last Admin: 05/21/22 08:14 Dose: 40 mg Lactulose (Lactulose 20 Gm/30 Ml Oral.Sharon) 20 gm PO QID PRN PRN Reason: other Lactulose (Lactulose 20 Gm/30 Ml Oral.Sharon) 30 gm PO TID [facility] Last Admin: 05/21/22 08:15 Dose: 30 gm Meloxicam (Meloxicam 7.5 Mg Tablet) 15 mg PO DAILY [facility] Last Admin: 05/21/22 08:13 Dose: 15 mg Methocarbamol (Methocarbamol 750 Mg Tablet) 750 mg PO Q8H PRN PRN Reason: pain, moderate Last Admin: 05/21/22 08:15 Dose: 750 mg Ondansetron HCl (Ondansetron 4 Mg Odt Tablet) 4 mg SL Q6HP PRN PRN Reason: Nausea And Vomiting Oxycodone HCl (Oxycodone Hcl 5 Mg Tablet) 10 mg PO Q6HP PRN; Protocol PRN Reason: Per Pain Protocol Last Admin: 05/21/22 06:52 Dose: 10 mg Pantoprazole Sodium (Pantoprazole 40 Mg Tablet) 40 mg PO QAMAC [facility] Last Admin: 05/21/22 07:33 Dose: 40 mg Quetiapine Fumarate (Quetiapine 100 Mg Tablet) 100 mg PO HS [facility] Last Admin: 05/20/22 20:39 Dose: 100 mg Spironolactone (Spironolactone 25 Mg Tablet) 100 mg PO DAILY [facility] Last Admin: 05/21/22 08:13 Dose: 100 mg Trazodone HCl (Trazodone Hcl 50 Mg Tablet) 25 mg PO HSP PRN PRN Reason: Insomnia Last Admin: 05/19/22 20:58 Dose: 25 mg A/P Narrative A/P Narrative: A: #colitis of ascending colon and cecum: resolved #Nonocclusive portal vein thrombus: #Chronic abdominal pain likely secondary to liver cirrhosis #Decompensated liver cirrhosis with elevated ammonia #Thrombocytopenia: secondary to liver cirrhosis #Normocytic anemia: #Leukopenia, acute on chronic: #Chronic hepatitis C infection #History of alcohol use disorder #Depression/Anxiety: Plan -Increased lactulose to 30 mL 3 times daily and as needed lactulose for 2-3 loose bowel movements per day. -add rifaximin -Follow ammonia level tomorrow -Completed ceftriaxone and Flagyl for colitis. -Outpatient paracentesis as needed. -Low-dose Tylenol as needed, oxycodone as needed, . -Continue Eliquis for portal vein thrombus. -Continue Lasix to 40 mg daily and spironolactone to 100 mg daily. -Continue Cymbalta/Seroquel, trazodone at bedtime. -PT following -Follow-up with GI after discharge. -DVT prophylaxis: Eliquis CODE STATUS: [employer] Spent With Patient Time: Total time spent is greater than 50% in coordination of care (as documented) at patient's floor/unit and/or counseling patient: Total time spent with greater than 50% in coordination of care (as documented) at patient's floor/unit and/or counseling patient:: 35 - 50 minutes QUALITY VTE Deep Vein Thrombosis/Pulmonary Embolism Present on Admission: No
[2022-05-21] MEDS: RIFAXIMIN 550 MG TABLET PO SCH ×2 (10:36→20:23)
[2022-05-21] MEDS ORDERED: KETOROLAC 30 MG/ML VIAL IV ONE (12:05)
[2022-05-21] MEDS ORDERED: morphine 15 MG TAB.SR.12H PO ONE (14:10)
[2022-05-21] MEDS: morphine 15 MG TAB.SR.12H PO SCH (19:46)
[2022-05-21] MEDS: traZODone HCL 50 MG TABLET PO PRN (20:23)
[2022-05-21] MEDS: QUEtiapine 100 MG TABLET PO SCH (20:23)
[2022-05-21] MEDS: MELOXICAM 7.5 MG TABLET PO PRN (23:43)
[2022-05-22] MEDS: ACETAMINOPHEN 325 MG TABLET PO PRN ×2 (03:42→10:34)
[2022-05-22] MEDS: MELOXICAM 7.5 MG TABLET PO PRN (03:43)
[2022-05-22] MEDS: METHOCARBAMOL 750 MG TABLET PO PRN ×2 (04:21→12:39)
[2022-05-22] MEDS: morphine 15 MG TAB.SR.12H PO SCH (05:08)
[2022-05-22] MEDS: oxyCODONE HCL 5 MG TABLET PO PRN ×2 (05:59→12:38)
[2022-05-22 06:38] LABS: Basophils # (Auto) 0.01 K/mcL (0.00-0.30); Basophils % (Auto) 0.4 % (0.0-2.0); Eosinophils # (Auto) 0.24 K/mcL (0.00-0.70); Eosinophils % (Auto) 10.5 % (0.0-7.0); Hematocrit 29.2 % (40.1-51.0); Hemoglobin 9.2 g/dL (13.7-17.5); Lymphocytes # (Auto) 0.65 K/mcL (1.50-4.80); Lymphocytes % (Auto) 28.4 % (15.5-49.0); Mean Corpuscular HGB Conc 31.5 g/dL (31.0-36.0); Mean Platelet Volume 12.6 fL (7.4-10.4); Monocytes % (Auto) 8.7 % (1.0-12.0); Neutrophils % (Auto) 51.6 % (38.0-78.0); Platelet Count 50 K/mcL (140-440); RBC 3.01 M/mcL (4.63-6.08); Red Cell Distribution Width 17.8 % (11.5-14.5); WBC 2.3 K/mcL (4.5-11.0)
[2022-05-22 06:55] LABS: Blood Urea Nitrogen 30 mg/dL (8-23); Calcium 8.1 mg/dL (8.6-10.4); Carbon Dioxide 22 mmol/L (22-30); Chloride 108 mmol/L (96-108); Glomerular Filtration Rate 81; Glucose 105 mg/dL (70-105)
[2022-05-22] MEDS: PANTOPRAZOLE 40 MG TABLET PO SCH (07:59)
[2022-05-22] MEDS: RIFAXIMIN 550 MG TABLET PO SCH (10:34)
[2022-05-22] MEDS: LACTULOSE 20 GM/30 ML ORAL.SOL PO SCH (10:34)
[2022-05-22] MEDS: SPIRONOLACTONE 25 MG TABLET PO SCH (10:34)
[2022-05-22] MEDS: DULoxetine 30 MG CAPSULE PO SCH (10:35)
[2022-05-22] MEDS: FUROSEMIDE 20 MG TABLET PO SCH (10:35)
[2022-05-22] MEDS: APIXABAN 5 MG TABLET PO SCH (10:35)
[2022-05-26] MEDS ORDERED: APIXABAN 5 MG TABLET PO SCH (21:00)
== END 2022-05-22 13:45 | disposition home health service (06) | DRG 391 ==
LOC: ED 13:08 → MEDSUR 22:40
PROVIDERS: ADMIT Internal Medicine; ATTEND Internal Medicine

== ENCOUNTER 2023-01-23 13:29 | Inpatient (IN) ==
[2023-01-23] MEDS ORDERED: LACTATED RINGERS 1,000 ML IV ONE (13:41)
--- NOTE | 2023-01-23 13:41 | Emergency Department Note ---
HPI General Chief complaint: Altered Mental Status Stated complaint: altered Time Seen by Provider: 01/23/23 13:32 Source: EMS Mode of arrival: EMS Limitations: altered mental status History of Present Illness HPI Narrative: Narrative: Patient is a 62-year-old male with a past medical history significant for cirrho sis on hospice who presents to the emergency department due to agitation. EMS brought patient in. Patient is agitated and alert, but unable to give any history at this time. EMS states that they were called to patient's home for agitation by the hospice nurse. They gave patient Ativan, and patient did not seem to improve with this. Patient was then given ketamine due to concern for injury to him or providers in the home. Patient's vitals were unremarkable other than tachycardia. EMS states that the patient was very confused as well. Related Data Previous Rx's Medication Instructions Recorded lactulose 10 gram/15 mL oral 20 g (30 mL) PO QDAY #473 mL 11/23/22 solution methocarbamol 750 mg tablet 750 mg PO Q8H PRN pain, moderate 11/23/22 #60 tabs quetiapine 100 mg tablet 100 mg PO QHS #30 tabs 12/13/22 morphine 30 mg tablet,extended 30 mg PO TID 28 days #84 tabs 01/26/23 release oxycodone 5 mg tablet 5 mg PO TID PRN pain 28 days #84 01/26/23 tabs hyoscyamine sulfate 0.125 mg 0.125 mg sublingual QID PRN 01/27/23 sublingual tablet (Levsin/SL) terminal secretions #20 tabs lorazepam 2 mg/mL oral concentrate 1 mg (0.5 mL) sublingual Q2HP PRN 01/27/23 anxiety #30 mL morphine 20 mg/5 mL (4 mg/mL) oral 10 mg (2.5 mL) PO Q1-2HP PRN pain 01/27/23 solution #100 mL ondansetron 4 mg disintegrating 4 mg translingual Q6H PRN nausea 01/27/23 tablet and vomiting #30 tabs Allergies Allergy/AdvReac Type Severity Reaction Status Date / Time Buspirone [From BuSpar] AdvReac Intermediate Seizure Verified 01/23/23 13:37 amitriptyline AdvReac Mild sleepiness, Verified 01/23/23 13:37 tunnel vision caffeine AdvReac Mild Anxiety Verified 01/23/23 13:37 prednisone [PREDNISONE] AdvReac Mild HIGH BP Verified 01/23/23 13:37 Review of Systems ROS ROS Narrative: Narrative: Limitations: ROS unobtainable due to patients medical condition PFSH Narrative Patient History Narrative: Narrative: Medical/Surgical/Family History All Active Problems (Updated 01/29/23 @ 03:12 by Sinan Ortiz MD) Abdominal pain (Acute) Abdominal ascites (Acute) Colitis (Acute) Hepatic encephalopathy (Acute) Chronic gastrointestinal bleeding (Acute) Agitation (Acute) Hepatic encephalopathy (Acute) Acute confusion (Acute) Thrombocytopenia (Acute) Anemia, normocytic normochromic (Acute) Portal vein thrombosis (Acute) Colitis (Acute) SBP (spontaneous bacterial peritonitis) (Acute) Abdominal ascites (Acute) Radiculopathy of lumbar region (Acute) Syncope (Acute) Abdominal ascites (Acute) ALC (alcoholic liver cirrhosis) (Chronic) Cirrhosis of liver (Acute) Lumbar radiculopathy (Chronic) Cirrhosis of liver (Chronic) Anxiety about health (Chronic) Trauma (Chronic) Acute pancreatitis (Chronic) History of alcoholism (Chronic) Seizure (Chronic) Degeneration of lumbar intervertebral disc (Chronic) Degeneration of thoracolumbar intervertebral disc (Chronic) Degeneration of cervical intervertebral disc (Chronic) BPH (benign prostatic hyperplasia) (Chronic) Vitamin D deficiency (Chronic) DM (diabetes mellitus) (Chronic) Hyperlipidemia (Chronic) Bipolar disorder (Chronic) Other low back pain (Chronic) Cervical spondylitis with radiculitis (Chronic) Lumbar spondylosis (Chronic) Esophageal reflux (Chronic) PTSD (post-traumatic stress disorder) (Chronic) Chronic hepatitis C with cirrhosis (Chronic) Asthma (Chronic) Bronchitis (Chronic) Hypertension, portal (Chronic) Fall (Chronic) Lumbar back sprain (Chronic) Back pain (Chronic) Strain of lumbar region (Chronic) Atypical chest pain (Chronic) Hypertension (Chronic) Achalasia of esophagus (Chronic) Psychosocial distress (Chronic) Abrasions of multiple sites (Chronic) Contusion of buttock (Chronic) Cellulitis of left leg (Chronic) Sleep difficulties (Chronic) Chronic pain (Chronic) Sacroiliac pain (Chronic) Anxiety and depression (Chronic) [place] (hard of hearing) (Chronic) Poor eyesight (Chronic) Restless leg syndrome, uncontrolled (Chronic) Right kidney mass (Chronic) Medical History Abdominal pain Abrasions of multiple sites Achalasia of esophagus Acute pancreatitis Alcoholic cirrhosis of liver Anemia Anxiety about health Anxiety and depression Arthritis Asthma Atypical chest pain Back pain Bipolar disorder Blind BPH (benign prostatic hyperplasia) Bronchitis Cellulitis of left leg Cervical spondylitis with radiculitis Chronic hepatitis C with cirrhosis Chronic pain Cirrhosis of liver Contusion of buttock [place] Degeneration of cervical intervertebral disc Degeneration of lumbar intervertebral disc Degeneration of thoracolumbar intervertebral disc DM (diabetes mellitus) Esophageal reflux Fall Hematuria History of alcoholism [place] (hard of hearing) Hyperlipidemia Hypertension Hypertension, portal Low back pain radiating to lower extremity Lumbar back sprain Lumbar radiculopathy Lumbar radiculopathy Lumbar spondylosis and Spondylostenosis Other low back pain Poor eyesight Psychosocial distress PTSD (post-traumatic stress disorder) Restless leg syndrome, uncontrolled Right kidney mass Sacroiliac pain Seizure Sleep difficulties Strain of lumbar region Trauma Vitamin D deficiency Surgical History History of cataract surgery History of exploratory laparotomy History of surgery 06/22 LESI #1 lt directed L 4-5 w/out sed (06-24-11) 09/22 LESI #2, L4-5 09/29/10 w/o sed 08/21 C7-T1 GREGG #1 (w/out sed) 09/07/1008/21 L4-5 GREGG #1 w/out sed (08-17-10) History of surgery of liver (~2006) Family History Father , Age 63 Heart disease HTN (hypertension) Mother , Age 61 Malignant tumor of ovary Grandmother Cancer Other Diabetes Heart attack Kidney stone Social History Smoking Status: Former smoker Alcohol Intake Frequency: holiday/special occasion only Substance Use: does not use Exam Narrative Narrative: Narrative: General Limitations: altered mental status General appearance: Present alert; Absent in no apparent distress Head Head: Present atraumatic and normocephalic Eye Eye: Present PERRL and EOMI; Absent scleral icterus or nystagmus ENT ENT: Present mucous membranes moist Neck Neck: Present full ROM and trachea midline Chest Chest: Present normal inspection and symmetric chest wall rise Respiratory Respiratory: Present normal lung sounds bilaterally; Absent respiratory distress, rales/crackles, wheezes, stridor or accessory muscle use Cardiovascular Cardiovascular: Present normal rhythm, tachycardia and normal heart sounds Adbominal Abdominal: Present soft and normal bowel sounds; Absent distention, guarding, rebound or rigidity Extremities Extremities: Present normal inspection; Absent pedal edema or pretibial edema Back Back: Present normal inspection Neurological Neurological: Present alert; Absent oriented X3 Psychiatric Psychiatric: Present normal affect and normal mood Skin Skin: Present warm (WNL), dry and normal color Course Vital Signs Vital signs: Vital Signs Temperature 99.0 F 01/23/23 13:33 Pulse Rate 102 H 01/23/23 13:33 Respiratory Rate 20 01/23/23 13:33 Blood Pressure 146/76 01/23/23 13:33 Pulse Oximetry (%) 97 01/23/23 13:33 Oxygen Delivery Method Room Air 01/23/23 13:33 Temperature 98.4 F 01/28/23 20:00 Pulse Rate 88 01/28/23 20:00 Respiratory Rate 24 H 01/28/23 20:00 Blood Pressure 148/68 01/28/23 20:00 Pulse Oximetry (%) 88 L 01/28/23 20:00 Oxygen Delivery Method Room Air 01/28/23 20:00 Oxygen Flow Rate (L/min) 0 01/24/23 04:00 [facility] MDM Narrative Medical decision making narrative: Narrative: Patient is a 62-year-old male who presents to the emergency department due to confusion and agitation. Differential diagnoses include hepatic encephalopathy, infection including urinary tract infection, head injury with intracranial injury including bleed. I spoke to patient's brother after her work-up had been started. He states that his brother would not want any acute intervention including antibiotics. Nursing did speak with hospice for a prolonged period of time and they have stated that hospice will be provoked because they are con cerned about the safety of the home. For this reason, and because patient does not have any family or others in the area that can help care for him, I have spoken with Dr. Alvarado, who is agreed to see and evaluate patient for admission. Lab Data 01/23/23 13:53 Labs: Lab Results 01/23/23 01/23/23 01/23/23 Range/Units 13:41 13:42 13:43 WBC (4.5-11.0) K/mcL RBC (4.63-6.08) M/mcL Hgb (13.7-17.5) g/dL Hct (40.1-51.0) % POC Hct 35.0 L (41-55) MCV (80.0-100.0) fL MCH (26.0-34.0) pg MCHC (31.0-36.0) g/dL RDW (11.5-14.5) % Plt Count (140-440) K/mcL MPV (8.8-12.5) fL Immature Gran % (Auto) (0.0-0.5) % Neut % (Auto) (38.0-78.0) % Lymph % (Auto) (15.5-49.0) % [place] % (Auto) (1.0-12.0) % Eos % (Auto) (0.0-7.0) % Baso % (Auto) (0.0-2.0) % Lymph # (Auto) (1.50-4.80) K/mcL [place] # (Auto) (0.10-0.90) K/mcL Eos # (Auto) (0.00-0.70) K/mcL Baso # (Auto) (0.00-0.30) K/mcL Immature Gran # (0.00-0.05) K/mcl Absolute Neutrophils (1.80-8.00) K/mcL POC VBG pH 7.40 (7.32-7.42) POC VBG pCO2 at Temp 24.5 L (41-51) POC VBG pO2 83 H (25-40) POC VBG HCO3 15.0 L (24-28) POC VBG Total CO2 16.0 L (25-29) POC Venous O2 Sat 96.0 H (40-70) POC VBG Base Excess -10.0 L (-2-2) VBG Lactic Acid 10.1 H* (0.5-2) POC Sodium 144 (133-145) POC Potassium 4.1 (3.3-5.1) POC Chloride 112 H (96-108) POC Total CO2 16.0 L (22-30) POC BUN 28 H (6-20) POC Creatinine 1.7 H (0.6-1.2) POC Glucose 111 H (70-105) POC WB Ioniz Calcium 1.17 (1.16-1.32) Total Bilirubin (0.1-1.0) mg/dL Direct Bilirubin (<0.3) mg/dL AST (<40) U/L ALT (<40) U/L Alkaline Phosphatase (39-117) U/L Ammonia (16-60) umol/L Total Protein (5.9-8.4) gm/dL Albumin (3.2-5.2) gm/dL Globulin (2.2-3.7) gm/dL Procalcitonin (<0.10) ng/mL TSH (0.27-5.01) uIU/mL Ethyl Alcohol mg/dL mg/dL Ethyl Alcohol g/dL (<0.010) gm/dL POC Troponin I 0.03 (0.00-0.08) 01/23/23 01/23/23 01/23/23 Range/Units 13:52 13:53 13:53 WBC 7.5 (4.5-11.0) K/mcL RBC 4.05 L (4.63-6.08) M/mcL Hgb 12.0 L (13.7-17.5) g/dL Hct 34.8 L (40.1-51.0) % POC Hct (41-55) MCV 85.9 (80.0-100.0) fL MCH 29.6 (26.0-34.0) pg MCHC 34.5 (31.0-36.0) g/dL RDW 14.7 H (11.5-14.5) % Plt Count 84 L (140-440) K/mcL MPV 11.3 (8.8-12.5) fL Immature Gran % (Auto) 0.1 (0.0-0.5) % Neut % (Auto) 51.6 (38.0-78.0) % Lymph % (Auto) 12.5 L (15.5-49.0) % [place] % (Auto) 4.4 (1.0-12.0) % Eos % (Auto) 30.5 H (0.0-7.0) % Baso % (Auto) 0.9 (0.0-2.0) % Lymph # (Auto) 0.94 L (1.50-4.80) K/mcL [place] # (Auto) 0.33 (0.10-0.90) K/mcL Eos # (Auto) 2.29 H (0.00-0.70) K/mcL Baso # (Auto) 0.07 (0.00-0.30) K/mcL Immature Gran # 0.01 (0.00-0.05) K/mcl Absolute Neutrophils 3.87 (1.80-8.00) K/mcL POC VBG pH (7.32-7.42) POC VBG pCO2 at Temp (41-51) POC VBG pO2 (25-40) POC VBG HCO3 (24-28) POC VBG Total CO2 (25-29) POC Venous O2 Sat (40-70) POC VBG Base Excess (-2-2) VBG Lactic Acid (0.5-2) POC Sodium (133-145) POC Potassium (3.3-5.1) POC Chloride (96-108) POC Total CO2 (22-30) POC BUN (6-20) POC Creatinine (0.6-1.2) POC Glucose (70-105) POC WB Ioniz Calcium (1.16-1.32) Total Bilirubin 1.1 H (0.1-1.0) mg/dL Direct Bilirubin 0.3 H (<0.3) mg/dL AST 34 (<40) U/L ALT 16 (<40) U/L Alkaline Phosphatase 130 H (39-117) U/L Ammonia (16-60) umol/L Total Protein 7.3 (5.9-8.4) gm/dL Albumin 3.4 (3.2-5.2) gm/dL Globulin 3.9 H (2.2-3.7) gm/dL Procalcitonin 0.10 H (<0.10) ng/mL TSH 1.14 (0.27-5.01) uIU/mL Ethyl Alcohol mg/dL mg/dL Ethyl Alcohol g/dL (<0.010) gm/dL POC Troponin I (0.00-0.08) 01/23/23 01/23/23 01/23/23 Range/Units 13:53 14:27 16:55 WBC (4.5-11.0) K/mcL RBC (4.63-6.08) M/mcL Hgb (13.7-17.5) g/dL Hct (40.1-51.0) % POC Hct (41-55) MCV (80.0-100.0) fL MCH (26.0-34.0) pg MCHC (31.0-36.0) g/dL RDW (11.5-14.5) % Plt Count (140-440) K/mcL MPV (8.8-12.5) fL Immature Gran % (Auto) (0.0-0.5) % Neut % (Auto) (38.0-78.0) % Lymph % (Auto) (15.5-49.0) % [place] % (Auto) (1.0-12.0) % Eos % (Auto) (0.0-7.0) % Baso % (Auto) (0.0-2.0) % Lymph # (Auto) (1.50-4.80) K/mcL [place] # (Auto) (0.10-0.90) K/mcL Eos # (Auto) (0.00-0.70) K/mcL Baso # (Auto) (0.00-0.30) K/mcL Immature Gran # (0.00-0.05) K/mcl Absolute Neutrophils (1.80-8.00) K/mcL POC VBG pH (7.32-7.42) POC VBG pCO2 at Temp (41-51) POC VBG pO2 (25-40) POC VBG HCO3 (24-28) POC VBG Total CO2 (25-29) POC Venous O2 Sat (40-70) POC VBG Base Excess (-2-2) VBG Lactic Acid 3.9 H* (0.5-2) POC Sodium (133-145) POC Potassium (3.3-5.1) POC Chloride (96-108) POC Total CO2 (22-30) POC BUN (6-20) POC Creatinine (0.6-1.2) POC Glucose (70-105) POC WB Ioniz Calcium (1.16-1.32) Total Bilirubin (0.1-1.0) mg/dL Direct Bilirubin (<0.3) mg/dL AST (<40) U/L ALT (<40) U/L Alkaline Phosphatase (39-117) U/L Ammonia 216 H (16-60) umol/L Total Protein (5.9-8.4) gm/dL Albumin (3.2-5.2) gm/dL Globulin (2.2-3.7) gm/dL Procalcitonin (<0.10) ng/mL TSH (0.27-5.01) uIU/mL Ethyl Alcohol mg/dL < 10.0 mg/dL Ethyl Alcohol g/dL < 0.010 (<0.010) gm/dL POC Troponin I (0.00-0.08) Discharge Plan Patient/Caregiver Discharge Instructions Pt seen by PREMIUM CANCELLATION CLERK/PA only: No Clinical Impression: Agitation, Hepatic encephalopathy, Acute confusion Activity: increase activity as tolerated Patient Disposition: Xfer As Inpt ([facility]) Condition: Serious Discharge Date/Time: 01/23/23 20:21
[2023-01-23] MEDS ORDERED: LORazepam 2 MG/ML VIAL IV ONE (13:44)
[2023-01-23 13:55] LABS: POC Calcium, Ionized 1.17 (1.16-1.32); POC Creatinine 1.7 (0.6-1.2); POC Potassium 4.1 (3.3-5.1)
[2023-01-23] MEDS ORDERED: morphine 4 MG/ML VIAL IV ONE (14:22)
[2023-01-23 14:31] LABS: Basophils # (Auto) 0.07 K/mcL (0.00-0.30); Basophils % (Auto) 0.9 % (0.0-2.0); Eosinophils # (Auto) 2.29 K/mcL (0.00-0.70); Eosinophils % (Auto) 30.5 % (0.0-7.0); Hematocrit 34.8 % (40.1-51.0); Lymphocytes # (Auto) 0.94 K/mcL (1.50-4.80); Lymphocytes % (Auto) 12.5 % (15.5-49.0); Mean Cell Volume 85.9 fL (80.0-100.0); Mean Corpuscular HGB Conc 34.5 g/dL (31.0-36.0); Mean Platelet Volume 11.3 fL (8.8-12.5); Monocytes # (Auto) 0.33 K/mcL (0.10-0.90); Monocytes % (Auto) 4.4 % (1.0-12.0); Neutrophils % (Auto) 51.6 % (38.0-78.0); Platelet Count 84 K/mcL (140-440); RBC 4.05 M/mcL (4.63-6.08); Red Cell Distribution Width 14.7 % (11.5-14.5); WBC 7.5 K/mcL (4.5-11.0)
[2023-01-23 14:36] LABS: Alcohol, Blood < 10.0 mg/dL; Alcohol,Blood < 0.010 gm/dL (<0.010)
[2023-01-23 14:52] LABS: ALT/SGPT 16 U/L (<40); AST/SGOT 34 U/L (<40); Albumin 3.4 gm/dL (3.2-5.2); Alkaline Phosphatase 130 U/L (39-117); Bilirubin,Direct 0.3 mg/dL (<0.3); Bilirubin,Total 1.1 mg/dL (0.1-1.0); Globulin 3.9 gm/dL (2.2-3.7); Thyroid Stimulating Hormone 1.14 uIU/mL (0.27-5.01)
--- NOTE | 2023-01-23 18:17 | Internal Med History&Physical ---
HPI History of Present Illness Patient information: Note initiated : 01/23/23 at 6:11 pm Service Date, if different from initiated Date: [] Patient: Josue Calvin 62 y/o M admitted on for altered. Chief Complaint: [] History of present illness: 62 years old male with history of end-stage liver cirrhosis, variceal bleed, hepatic encephalopathy noncompliance with lactulose, alcohol abuse who has been on hospice presented to ER after hospice nurse could not find patient medication. Patient was noted to be agitated and confused, hospice nurse tried to find patient medication but was unable to do so and called EMS. EMS gave patient Ativan and ketamine. Patient was noted to be very confused. Work-up showed significantly elevated ammonia of 216 consistent with hepatic encephalopathy. Rest of the lab work was unremarkable. Dr Ortiz had goals of care discussion with patient's POA who wishes to keep patient comfortable on hospice care and does not wish to treat hyperammonemia. Discussed case with Crispin who is the POA, he was a bit frustrated that hospice nurse was not able to keep the patient at home. He stated he would only want patient to be comfort care at this point. Review of system 14 point review of system obtained, it was limited due to patient confusion Physical examination General General appearance: Confused, keeping his eyes closed, he appears chronically ill, moving in bed aimlessly, appears restless Head Head: Present atraumatic and normocephalic Eye Eye: Present PERRL and EOMI; Absent scleral icterus ENT ENT: Present mucous membranes moist Neck Neck: Present full ROM and trachea midline Chest Chest: Present normal inspection and symmetric chest wall rise Respiratory Respiratory: Present normal lung sounds bilaterally; Absent respiratory distress, rales/crackles, wheezes, stridor or accessory muscle use Cardiovascular Cardiovascular: Present normal rhythm, tachycardia and normal heart sounds Adbominal Abdominal: Present soft and normal bowel sounds; Absent distention, guarding, rebound or rigidity Extremities Extremities: Present normal inspection; Absent pedal edema or pretibial edema Back Back: Present normal inspection Neurological Neurological: Present eyes closed, appears confused, moving limbs randomly Psychiatric Psychiatric: Confused Skin Skin: Present multiple scratch marie on the skin Assessment and plan End-of-life care End-stage alcoholic liver cirrhosis Hepatic encephalopathy Alcohol abuse Hypertension Hyperlipidemia Bipolar disorder/PTSD Plan Patient is agitated, will admit to higher level of care due to his nursing needs since he can be combative due to his hepatic encephalopathy, he will need intense nursing care to prevent harm to self and others. POA wishes patient to be on hospice only/comfort care Patient on as needed Dilaudid, Ativan. Total time taken 55 minutes PFSH PFS All Active Problems Abdominal pain (Acute) Abdominal ascites (Acute) Colitis (Acute) Hepatic encephalopathy (Acute) Chronic gastrointestinal bleeding (Acute) Thrombocytopenia (Acute) Anemia, normocytic normochromic (Acute) Portal vein thrombosis (Acute) Colitis (Acute) SBP (spontaneous bacterial peritonitis) (Acute) Abdominal ascites (Acute) Radiculopathy of lumbar region (Acute) Syncope (Acute) Abdominal ascites (Acute) ALC (alcoholic liver cirrhosis) (Chronic) Cirrhosis of liver (Acute) Lumbar radiculopathy (Chronic) Cirrhosis of liver (Chronic) Anxiety about health (Chronic) Trauma (Chronic) Acute pancreatitis (Chronic) History of alcoholism (Chronic) Seizure (Chronic) Degeneration of lumbar intervertebral disc (Chronic) Degeneration of thoracolumbar intervertebral disc (Chronic) Degeneration of cervical intervertebral disc (Chronic) BPH (benign prostatic hyperplasia) (Chronic) Vitamin D deficiency (Chronic) DM (diabetes mellitus) (Chronic) Hyperlipidemia (Chronic) Bipolar disorder (Chronic) Other low back pain (Chronic) Cervical spondylitis with radiculitis (Chronic) Lumbar spondylosis (Chronic) Esophageal reflux (Chronic) PTSD (post-traumatic stress disorder) (Chronic) Chronic hepatitis C with cirrhosis (Chronic) Asthma (Chronic) Bronchitis (Chronic) Hypertension, portal (Chronic) Fall (Chronic) Lumbar back sprain (Chronic) Back pain (Chronic) Strain of lumbar region (Chronic) Atypical chest pain (Chronic) Hypertension (Chronic) Achalasia of esophagus (Chronic) Psychosocial distress (Chronic) Abrasions of multiple sites (Chronic) Contusion of buttock (Chronic) Cellulitis of left leg (Chronic) Sleep difficulties (Chronic) Chronic pain (Chronic) Sacroiliac pain (Chronic) Anxiety and depression (Chronic) [place] (hard of hearing) (Chronic) Poor eyesight (Chronic) Restless leg syndrome, uncontrolled (Chronic) Right kidney mass (Chronic) Medical History Abdominal pain Abrasions of multiple sites Achalasia of esophagus Acute pancreatitis Alcoholic cirrhosis of liver Anemia Anxiety about health Anxiety and depression Arthritis Asthma Atypical chest pain Back pain Bipolar disorder Blind BPH (benign prostatic hyperplasia) Bronchitis Cellulitis of left leg Cervical spondylitis with radiculitis Chronic hepatitis C with cirrhosis Chronic pain Cirrhosis of liver Contusion of buttock [place] Degeneration of cervical intervertebral disc Degeneration of lumbar intervertebral disc Degeneration of thoracolumbar intervertebral disc DM (diabetes mellitus) Esophageal reflux Fall Hematuria History of alcoholism [place] (hard of hearing) Hyperlipidemia Hypertension Hypertension, portal Low back pain radiating to lower extremity Lumbar back sprain Lumbar radiculopathy Lumbar radiculopathy Lumbar spondylosis and Spondylostenosis Other low back pain Poor eyesight Psychosocial distress PTSD (post-traumatic stress disorder) Restless leg syndrome, uncontrolled Right kidney mass Sacroiliac pain Seizure Sleep difficulties Strain of lumbar region Trauma Vitamin D deficiency Surgical History History of cataract surgery History of exploratory laparotomy History of surgery 06/22 LESI #1 lt directed L 4-5 w/out sed (06-24-11) 09/22 LESI #2, L4-5 09/29/10 w/o sed 08/21 C7-T1 GREGG #1 (w/out sed) 09/07/1008/21 L4-5 GREGG #1 w/out sed (08-17-10) History of surgery of liver (~2006) Family History Father , Age 63 Heart disease HTN (hypertension) Mother , Age 61 Malignant tumor of ovary Grandmother Cancer Other Diabetes Heart attack Kidney stone Social History marital status: single education level: college occupational status: unemployed 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 sexually active: No smoking status: Former smoker pack-years: 12 alcohol intake frequency: holiday/special occasion only substance use type: does not use seatbelt use: sometimes carbon monox detector in home: Yes firearms in home: No MEDS/ALLERGIES Home Medications and Allergies Home Medications Medication Instructions Recorded Confirmed Type lactulose 10 gram/15 mL oral 20 g (30 mL) PO QDAY #473 mL 11/23/22 11/23/22 Rx solution meloxicam 15 mg tablet 15 mg PO QDAY pain 11/23/22 11/23/22 History methocarbamol 750 mg tablet 750 mg PO Q8H PRN pain, moderate 11/23/22 11/23/22 Rx #60 tabs quetiapine 100 mg tablet 100 mg PO QHS #30 tabs 12/13/22 Rx duloxetine 30 mg capsule,delayed 30 mg PO BID #60 caps 01/03/23 Rx release furosemide 40 mg tablet 40 mg PO QAM #30 tabs 01/03/23 Rx lorazepam 0.5 mg tablet 0.5 mg PO BID agitation #60 tabs 01/03/23 Rx morphine 30 mg tablet,extended 30 mg PO TID 28 days #84 tabs 01/03/23 Rx release ondansetron HCl 4 mg tablet 8 mg PO QDAY #60 tabs 01/03/23 Rx oxycodone 5 mg tablet 5 mg PO TID PRN pain 28 days #84 01/03/23 Rx tabs spironolactone 50 mg tablet 50 mg PO QAM #30 tabs 01/03/23 Rx Allergies Allergy/AdvReac Type Severity Reaction Status Date / Time Buspirone [From BuSpar] AdvReac Intermediate Seizure Verified 01/23/23 13:37 amitriptyline AdvReac Mild sleepiness, Verified 01/23/23 13:37 tunnel vision caffeine AdvReac Mild Anxiety Verified 01/23/23 13:37 prednisone [PREDNISONE] AdvReac Mild HIGH BP Verified 01/23/23 13:37 EXAM Constitutional Vitals: Temp Pulse Resp BP Pulse Ox O2 Del Method 99.0 F 91 H 17 131/66 97 Room Air 01/23/23 13:33 01/23/23 16:01 01/23/23 17:31 01/23/23 17:31 01/23/23 16:01 01/23/23 13:33 DATA Data Completed and Pending Labs: Labs from last 24 hours 01/23/23 01/23/23 01/23/23 16:55 14:27 13:53 WBC RBC Hgb Hct POC Hct MCV MCH MCHC RDW Plt Count MPV Immature Gran % (Auto) Neut % (Auto) Lymph % (Auto) [place] % (Auto) Eos % (Auto) Baso % (Auto) Lymph # (Auto) [place] # (Auto) Eos # (Auto) Baso # (Auto) Immature Gran # Absolute Neutrophils POC VBG pH POC VBG pCO2 at Temp POC VBG pO2 POC VBG HCO3 POC VBG Total CO2 POC Venous O2 Sat POC VBG Base Excess VBG Lactic Acid 3.9 H* POC Sodium POC Potassium POC Chloride POC Total CO2 POC BUN POC Creatinine POC Glucose POC WB Ioniz Calcium Total Bilirubin Direct Bilirubin AST ALT Alkaline Phosphatase Ammonia 216 H Total Protein Albumin Globulin Procalcitonin TSH Ethyl Alcohol mg/dL < 10.0 Ethyl Alcohol g/dL < 0.010 POC Troponin I 01/23/23 01/23/23 01/23/23 13:53 13:53 13:52 WBC 7.5 RBC 4.05 L Hgb 12.0 L Hct 34.8 L POC Hct MCV 85.9 MCH 29.6 MCHC 34.5 RDW 14.7 H Plt Count 84 L MPV 11.3 Immature Gran % (Auto) 0.1 Neut % (Auto) 51.6 Lymph % (Auto) 12.5 L [place] % (Auto) 4.4 Eos % (Auto) 30.5 H Baso % (Auto) 0.9 Lymph # (Auto) 0.94 L [place] # (Auto) 0.33 Eos # (Auto) 2.29 H Baso # (Auto) 0.07 Immature Gran # 0.01 Absolute Neutrophils 3.87 POC VBG pH POC VBG pCO2 at Temp POC VBG pO2 POC VBG HCO3 POC VBG Total CO2 POC Venous O2 Sat POC VBG Base Excess VBG Lactic Acid POC Sodium POC Potassium POC Chloride POC Total CO2 POC BUN POC Creatinine POC Glucose POC WB Ioniz Calcium Total Bilirubin 1.1 H Direct Bilirubin 0.3 H AST 34 ALT 16 Alkaline Phosphatase 130 H Ammonia Total Protein 7.3 Albumin 3.4 Globulin 3.9 H Procalcitonin 0.10 H TSH 1.14 Ethyl Alcohol mg/dL Ethyl Alcohol g/dL POC Troponin I 01/23/23 01/23/23 01/23/23 13:43 13:42 13:41 WBC RBC Hgb Hct POC Hct 35.0 L MCV MCH MCHC RDW Plt Count MPV Immature Gran % (Auto) Neut % (Auto) Lymph % (Auto) [place] % (Auto) Eos % (Auto) Baso % (Auto) Lymph # (Auto) [place] # (Auto) Eos # (Auto) Baso # (Auto) Immature Gran # Absolute Neutrophils POC VBG pH 7.40 POC VBG pCO2 at Temp 24.5 L POC VBG pO2 83 H POC VBG HCO3 15.0 L POC VBG Total CO2 16.0 L POC Venous O2 Sat 96.0 H POC VBG Base Excess -10.0 L VBG Lactic Acid 10.1 H* POC Sodium 144 POC Potassium 4.1 POC Chloride 112 H POC Total CO2 16.0 L POC BUN 28 H POC Creatinine 1.7 H POC Glucose 111 H POC WB Ioniz Calcium 1.17 Total Bilirubin Direct Bilirubin AST ALT Alkaline Phosphatase Ammonia Total Protein Albumin Globulin Procalcitonin TSH Ethyl Alcohol mg/dL Ethyl Alcohol g/dL POC Troponin I 0.03 A/P Time Spent With Patient Time: Total time spent is greater than 50% in coordination of care (as documented) at patient's floor/unit and/or counseling patient:
--- NOTE | 2023-01-23 18:21 | Cat Scan Report ---
CLINICAL INFORMATION: Decreased level consciousness COMPARISON: 04/09/2022 TECHNIQUE: 2.5 mm helical slices were obtained in the skull base to vertex. Following reconstruction, axial reformatted images were reviewed at bone and parenchymal windows. The exam was performed using radiation dose optimization techniques including, but not limited to, automated exposure control, adjustment of the mA and/or kV according to patient size and use of iterative reconstruction technique. FINDINGS: The ventricles, sulci, fissures, and cisterns are symmetrically enlarged compatible with mild age-related atrophy. No extra-axial fluid collections are identified. Mild patchy chronic ischemic changes, in the deep cerebral white matter, are expected for age. There is no hemorrhage, mass effect, or edema. Bone windows show no osseous abnormality. IMPRESSION: Mild atrophy and chronic ischemic changes in the deep cerebral white matter-expected for age. No acute findings Interpreted and Authenticated by: King Pires 01/23/23
[2023-01-23] MEDS ORDERED: ONDANSETRON 4 MG ODT TABLET SL PRN (20:28)
[2023-01-23] MEDS ORDERED: ONDANSETRON 4 MG/2 ML VIAL IV PRN (20:28)
[2023-01-23] MEDS: LORazepam 2 MG/ML VIAL IV PRN (20:49)
[2023-01-23] MEDS: HYDROmorphone 1 MG/ML SYRINGE IV PRN (20:50)
[2023-01-23] MEDS: 0.9 % SODIUM CHLORIDE 10 ML SYRINGE IV SCH (20:52)
[2023-01-23] MEDS: DEXMEDETOMIDINE 400 MCG in PREMIX 1 BAG IV SCH (22:30)
[2023-01-23] MEDS: 0.9 % SODIUM CHLORIDE 250 ML IV SCH (22:30)
[2023-01-24] MEDS: HYDROmorphone 1 MG/ML SYRINGE IV PRN ×4 (00:02→23:22)
[2023-01-24 00:47] LABS: Amphetamine Screen,Urine None detected; Barbiturate Screen,Urine None detected; Benzodiazepines Screen,Urine None detected; Cannabinoid Screen,Urine Suspect Positive; Cocaine Screen,Urine None detected; Opiate Screen,Urine Suspect Positive; Oxycodone, Urine Screen Suspect Positive; Phencyclidine Screen,Urine None detected
[2023-01-24] MEDS: DEXMEDETOMIDINE 400 MCG in PREMIX 1 BAG IV SCH ×3 (02:28→19:20)
--- NOTE | 2023-01-24 07:34 | EKG ---
[facility] Test Date: 2023-01-23 Pat Name: Josue Calvin Department: ED Room: Gender: Male [employer]i Maker: : 1960 Requested By: Sinan Ortiz Order Number: [id number] Reading MD: King Weaver M.D. Measurements Intervals [place] Rate: 96 P: 69 [place]: 173 QRS: 47 QRSD: 99 T: 59 QT: 376 QTc: 476 Interpretive Statements Sinus rhythm Borderline prolonged QT interval Electronically Signed On 01-24-2023 7:33:44 PDT by King Weaver M.D. /store/[email or web address]/[id number]
[2023-01-24] MEDS: 0.9 % SODIUM CHLORIDE 10 ML SYRINGE IV SCH ×3 (08:18→20:18)
--- NOTE | 2023-01-24 08:59 | Internal Med Progress Note ---
SUBJECTIVE Subjective Patient information: Note initiated : 01/24/23 at 8:55 am Service Date, if different from initiated Date: [] Patient: Josue Calvin 62 y/o M admitted on 01/23/23 for altered. Chief Complaint: [] Additional PMFSH (Level 3 Only): History of present illness: 62 years old male with history of end-stage liver cirrhosis, variceal bleed, hepatic encephalopathy noncompliance with lactulose, alcohol abuse who has been on hospice presented to ER after hospice nurse could not find patient medication. Patient was noted to be agitated and confused, hospice nurse tried to find patient medication but was unable to do so and called EMS. EMS gave patient Ativan and ketamine. Patient was noted to be very confused. Work-up showed significantly elevated ammonia of 216 consistent with hepatic encephalopathy. Rest of the lab work was unremarkable. Dr Ortiz had goals of care discussion with patient's POA who wishes to keep patient comfortable on hospice care and does not wish to treat hyperammonemia. Discussed case with Crispin who is the POA, he was a bit frustrated that hospice nurse was not able to keep the patient at home. He stated he would only want patient to be comfort care at this point. 01/24. Last night patient was agitated and was thrashing arms and legs. He required mechanical restraints and was started on Precedex drip. On evaluation patient is calm and resting without agitation on Precedex drip. Review of system 14 point review of system obtained, it was limited due to patient sedation Physical examination General General appearance: Resting in bed, no signs of agitation Head Head: Present atraumatic and normocephalic Eye Eye: Present PERRL and EOMI; Absent scleral icterus ENT ENT: Present mucous membranes moist Neck Neck: Present full ROM and trachea midline Chest Chest: Present normal inspection and symmetric chest wall rise Respiratory Respiratory: Present normal lung sounds bilaterally; Absent respiratory di stress, rales/crackles, wheezes, stridor or accessory muscle use Cardiovascular Cardiovascular: Present normal rhythm, tachycardia and normal heart sounds Adbominal Abdominal: Present soft and normal bowel sounds; Absent distention, guarding, rebound or rigidity Extremities Extremities: Present normal inspection; Absent pedal edema or pretibial edema Back Back: Present normal inspection Neurological Neurological: Present sedated, appears to be resting comfortably Psychiatric Psychiatric: Unable to examine Skin Skin: Present multiple scratch marie on the skin Assessment and plan End-of-life care End-stage alcoholic liver cirrhosis Hepatic encephalopathy Alcohol abuse Hypertension Hyperlipidemia Bipolar disorder/PTSD Plan Patient combative behavior stable on Precedex drip which will be continued. Discussed in detail with POReg, wishes patient only to be on hospice care/comfort care Continue Dilaudid Ativan We will discuss with case management if inpatient hospice available Critical care 40 minutes Constitutional Vitals: Vital Signs Temp Pulse Resp BP Pulse Ox O2 Del Method O2 Flow Rate 98.2 F 53 L 22 105/60 97 Room Air 0 01/24/23 08:00 01/24/23 08:31 01/24/23 08:31 01/24/23 08:31 01/24/23 08:31 01/24/23 08:31 01/24/23 04:00 Period Temp Pulse Resp BP Sys/[place] Pulse Ox O2 Del Method O2 Flow Rate Last 24 Hr 97.8 F-99.0 F 51-105 - 94-146/49-108 93-98 Room Air-Room Air 0-0 Intake and Output 01/23/23 01/24/23 01/24/23 19:59 03:59 11:59 Intake Total 1000 91 100 Balance 1000 91 100 Weight 81.647 kg 71.622 kg Intake & Output: Intake & Output 01/23/23 01/24/23 01/24/23 19:59 03:59 11:59 Intake Total 1000 91 100 Balance 1000 91 100 Weight 81.647 kg 71.622 kg Intake: IV 1000 91 100 Precedex 400 Mcg/100 ml 91 100 Dextrose 400 Mcg In Premix 1 Bag @ 0.2 MCG/KG/HR 4.082 mls/ hr IV .Q24H [facility] Rx#:[id number] Lactated Ringers 1,000 ml @ 1000 Wide Open IV BOLUS ONE Rx#: [id number] Other: Urine Appearance Uretheral ([place]) Hematuria Large Blood Clots Urine Color Uretheral ([place]) Dark Yellow # Voids 1 OBJ DATA Labs 01/23/23 13:53 Labs: Abnormal Lab Results 01/23/23 01/23/23 01/23/23 21:36 16:55 14:27 RBC Hgb Hct POC Hct RDW Plt Count Lymph % (Auto) Eos % (Auto) Lymph # (Auto) Eos # (Auto) POC VBG pCO2 at Temp POC VBG pO2 POC VBG HCO3 POC VBG Total CO2 POC Venous O2 Sat POC VBG Base Excess VBG Lactic Acid 3.9 H* POC Chloride POC Total CO2 POC BUN POC Creatinine POC Glucose Total Bilirubin Direct Bilirubin Alkaline Phosphatase Ammonia 216 H Globulin Procalcitonin Urine Opiates Screen Suspect positive A Ur Oxycodone Screen Suspect positive A U Marijuana (THC) Screen Suspect positive A 01/23/23 01/23/23 01/23/23 13:53 13:53 13:52 RBC 4.05 L Hgb 12.0 L Hct 34.8 L POC Hct RDW 14.7 H Plt Count 84 L Lymph % (Auto) 12.5 L Eos % (Auto) 30.5 H Lymph # (Auto) 0.94 L Eos # (Auto) 2.29 H POC VBG pCO2 at Temp POC VBG pO2 POC VBG HCO3 POC VBG Total CO2 POC Venous O2 Sat POC VBG Base Excess VBG Lactic Acid POC Chloride POC Total CO2 POC BUN POC Creatinine POC Glucose Total Bilirubin 1.1 H Direct Bilirubin 0.3 H Alkaline Phosphatase 130 H Ammonia Globulin 3.9 H Procalcitonin 0.10 H Urine Opiates Screen Ur Oxycodone Screen U Marijuana (THC) Screen 01/23/23 01/23/23 13:43 13:41 RBC Hgb Hct POC Hct 35.0 L RDW Plt Count Lymph % (Auto) Eos % (Auto) Lymph # (Auto) Eos # (Auto) POC VBG pCO2 at Temp 24.5 L POC VBG pO2 83 H POC VBG HCO3 15.0 L POC VBG Total CO2 16.0 L POC Venous O2 Sat 96.0 H POC VBG Base Excess -10.0 L VBG Lactic Acid 10.1 H* POC Chloride 112 H POC Total CO2 16.0 L POC BUN 28 H POC Creatinine 1.7 H POC Glucose 111 H Total Bilirubin Direct Bilirubin Alkaline Phosphatase Ammonia Globulin Procalcitonin Urine Opiates Screen Ur Oxycodone Screen U Marijuana (THC) Screen Meds: Medications Hydromorphone HCl (Hydromorphone 1 Mg/Ml Syringe) 0.5 - 2 mg IV Q2HP PRN; Protocol PRN Reason: Per Pain Protocol Last Admin: 01/24/23 00:02 Dose: 2 mg Dexmedetomidine HCl 400 mcg/ (Premix) 100 mls @ 4.082 mls/hr IV .Q24H [facility]; Protocol Last Titration: 01/24/23 08:17 Dose: 0.6 mcg/kg/hr, 12.247 mls/hr Sodium Chloride (Sodium Chloride 0.9%) 250 mls @ 20 mls/hr IV .[id number] [facility] Last Admin: 01/23/23 22:30 Dose: 20 mls/hr Lorazepam (Lorazepam 2 Mg/Ml Vial) 0 mg IV Q1HP PRN; Protocol PRN Reason: ANXIETY/SEDATION Last Admin: 01/23/23 20:49 Dose: 2 mg Ondansetron HCl (Ondansetron 4 Mg/2 Ml Vial) 4 mg IV Q4HP PRN; Protocol PRN Reason: Nausea And Vomiting Ondansetron HCl (Ondansetron 4 Mg Odt Tablet) 4 mg SL Q4HP PRN; Protocol PRN Reason: Nausea And Vomiting Sodium Chloride (0.9 % Sodium Chloride 10 Ml Syringe) 10 ml IV Q8 [facility] Last Admin: 01/24/23 08:18 Dose: Not Given A/P Time Spent With Patient Time: Total time spent is greater than 50% in coordination of care (as documented) at patient's floor/unit and/or counseling patient: QUALITY VTE Deep Vein Thrombosis/Pulmonary Embolism Present on Admission: No
[2023-01-24] MEDS: 0.9 % SODIUM CHLORIDE 250 ML IV SCH ×2 (10:00→21:07)
[2023-01-24] MEDS: LORazepam 2 MG/ML VIAL IV PRN ×2 (18:47→20:45)
[2023-01-25] MEDS: HYDROmorphone 1 MG/ML SYRINGE IV PRN ×9 (03:26→23:46)
[2023-01-25] MEDS: LORazepam 2 MG/ML VIAL IV PRN ×12 (04:14→23:46)
[2023-01-25] MEDS: 0.9 % SODIUM CHLORIDE 10 ML SYRINGE IV SCH ×3 (05:28→22:40)
[2023-01-25] MEDS ORDERED: HALOPERIDOL LACTATE 2 MG/ML PT PRN (08:52)
--- NOTE | 2023-01-25 09:02 | Internal Med Progress Note ---
SUBJECTIVE Subjective Patient information: Note initiated : 01/25/23 at 8:58 am Service Date, if different from initiated Date: [] Patient: Josue Calvin 62 y/o M admitted on 01/23/23 for altered. Chief Complaint: [] Additional PMFSH (Level 3 Only): History of present illness: 62 years old male with history of end-stage liver cirrhosis, variceal bleed, hepatic encephalopathy noncompliance with lactulose, alcohol abuse who has been on hospice presented to ER after hospice nurse could not find patient medication. Patient was noted to be agitated and confused, hospice nurse tried to find patient medication but was unable to do so and called EMS. EMS gave patient Ativan and ketamine. Patient was noted to be very confused. Work-up showed significantly elevated ammonia of 216 consistent with hepatic encephalopathy. Rest of the lab work was unremarkable. Dr Ortiz had goals of care discussion with patient's POA who wishes to keep patient comfortable on hospice care and does not wish to treat hyperammonemia. Discussed case with Crispin who is the POA, he was a bit frustrated that hospice nurse was not able to keep the patient at home. He stated he would only want patient to be comfort care at this point. 01/24. Last night patient was agitated and was thrashing arms and legs. He required mechanical restraints and was started on Precedex drip. On evaluation patient is calm and resting without agitation on Precedex drip. 01/25. Patient was restless last night, Ativan 2 mg is not touching him. He is with one-to-one sitter and still trying to come out of bed and fall risk. He is saying profanities due to confusion. It is hard to keep him still even in the chair without exposing him to risk of fall. He would benefit from being more comfortable will increase Ativan from 4 to 6 mg, will add olanzapine IM, IV Haldol is not available. Review of system 14 point review of system obtained, it was limited due to patient sedation Physical examination General General appearance: Appears restless and agitated, saying profanities Head Head: Present atraumatic and normocephalic Eye Eye: Present PERRL and EOMI; Absent scleral icterus ENT ENT: Present mucous membranes moist Neck Neck: Present full ROM and trachea midline Chest Chest: Present normal inspection and symmetric chest wall rise Respiratory Respiratory: Present normal lung sounds bilaterally; Absent respiratory distress, rales/crackles, wheezes, stridor or accessory muscle use Cardiovascular Cardiovascular: Present normal rhythm, tachycardia and normal heart sounds Adbominal Abdominal: Present soft and normal bowel sounds; Absent distention, guarding, rebound or rigidity Extremities Extremities: Present normal inspection; Absent pedal edema or pretibial edema Back Back: Present normal inspection Neurological Neurological: Present sedated, appears to be resting comfortably Psychiatric Psychiatric: Unable to examine Skin Skin: Present scratch marie on the skin are healing Assessment and plan End-of-life care End-stage alcoholic liver cirrhosis Hepatic encephalopathy Alcohol abuse Hypertension Hyperlipidemia Bipolar disorder/PTSD Plan Patient combative behavior was well controlled on Precedex he is off Precedex now He is currently very agitated, restless and confused and current dose of Ativan is not touching him Increase Ativan to 4 to 6 mg Olanzapine IM 5 mg every 6 hours as needed Continue IV Dilaudid as needed Haldol is not available Discussed in detail with KEYLA, wishes patient only to be on hospice care/comfort care Case management to work on placement Total time taken 40 minutes Constitutional Vitals: Vital Signs Temp Pulse Resp BP Pulse Ox O2 Del Method O2 Flow Rate 98.6 F 75 16 116/61 99 Room Air 0 01/24/23 18:55 01/24/23 18:55 01/24/23 18:55 01/24/23 18:55 01/24/23 18:55 01/24/23 18:55 01/24/23 04:00 Period Temp Pulse Resp BP Sys/Hodges Pulse Ox O2 Del Method O2 Flow Rate Last 24 Hr 98.3 F-98.6 F 55-76 16-25 95-117/51-76 95-99 Room Air-Room Air Intake and Output 01/24/23 01/25/23 01/25/23 19:59 03:59 11:59 Intake Total 720 500 Output Total 650 Balance 720 -150 Weight 70.851 kg Intake & Output: Intake & Output 01/24/23 01/25/23 01/25/23 19:59 03:59 11:59 Intake Total 720 500 Output Total 650 Balance 720 -150 Weight 70.851 kg Intake: IV 0 Sodium Chloride 0.9% 250 ml @ 0 20 mls/hr IV .[id number] [facility] Rx#: [id number] Oral 720 500 Output: Urine Catheter Amount 650 Other: Urine Appearance Clear Urine Color Dark Yellow Stool Size Large Stool Color Yellow Stool Consistency Normal for Patient # Bowel Movements 5 OBJ DATA Labs 01/23/23 13:53 Labs: Abnormal Lab Results 01/23/23 01/23/23 01/23/23 21:36 16:55 14:27 RBC Hgb Hct POC Hct RDW Plt Count Lymph % (Auto) Eos % (Auto) Lymph # (Auto) Eos # (Auto) POC VBG pCO2 at Temp POC VBG pO2 POC VBG HCO3 POC VBG Total CO2 POC Venous O2 Sat POC VBG Base Excess VBG Lactic Acid 3.9 H* POC Chloride POC Total CO2 POC BUN POC Creatinine POC Glucose Total Bilirubin Direct Bilirubin Alkaline Phosphatase Ammonia 216 H Globulin Procalcitonin Urine Opiates Screen Suspect positive A Ur Oxycodone Screen Suspect positive A U Marijuana (THC) Screen Suspect positive A 01/23/23 01/23/23 01/23/23 13:53 13:53 13:52 RBC 4.05 L Hgb 12.0 L Hct 34.8 L POC Hct RDW 14.7 H Plt Count 84 L Lymph % (Auto) 12.5 L Eos % (Auto) 30.5 H Lymph # (Auto) 0.94 L Eos # (Auto) 2.29 H POC VBG pCO2 at Temp POC VBG pO2 POC VBG HCO3 POC VBG Total CO2 POC Venous O2 Sat POC VBG Base Excess VBG Lactic Acid POC Chloride POC Total CO2 POC BUN POC Creatinine POC Glucose Total Bilirubin 1.1 H Direct Bilirubin 0.3 H Alkaline Phosphatase 130 H Ammonia Globulin 3.9 H Procalcitonin 0.10 H Urine Opiates Screen Ur Oxycodone Screen U Marijuana (THC) Screen 01/23/23 01/23/23 13:43 13:41 RBC Hgb Hct POC Hct 35.0 L RDW Plt Count Lymph % (Auto) Eos % (Auto) Lymph # (Auto) Eos # (Auto) POC VBG pCO2 at Temp 24.5 L POC VBG pO2 83 H POC VBG HCO3 15.0 L POC VBG Total CO2 16.0 L POC Venous O2 Sat 96.0 H POC VBG Base Excess -10.0 L VBG Lactic Acid 10.1 H* POC Chloride 112 H POC Total CO2 16.0 L POC BUN 28 H POC Creatinine 1.7 H POC Glucose 111 H Total Bilirubin Direct Bilirubin Alkaline Phosphatase Ammonia Globulin Procalcitonin Urine Opiates Screen Ur Oxycodone Screen U Marijuana (THC) Screen Meds: Medications Haloperidol Lactate (Haloperidol Lactate 2 Mg/Ml Oral.Sharon) 4 mg PT TIDP PRN PRN Reason: ANXIETY/SEDATION Hydromorphone HCl (Hydromorphone 1 Mg/Ml Syringe) 0.5 - 2 mg IV Q2HP PRN; Protocol PRN Reason: Per Pain Protocol Last Admin: 01/25/23 07:59 Dose: 1 mg Dexmedetomidine HCl 400 mcg/ (Premix) 100 mls @ 4.082 mls/hr IV .Q24H [facility]; Protocol Last Admin: 01/24/23 19:20 Dose: Not Given Sodium Chloride (Sodium Chloride 0.9%) 250 mls @ 20 mls/hr IV .[id number] [facility] Last Admin: 01/24/23 21:07 Dose: Not Given Lorazepam (Lorazepam 2 Mg/Ml Vial) 0 mg IV Q1HP PRN; Protocol PRN Reason: ANXIETY/SEDATION Olanzapine (Olanzapine 10 Mg Vial) 5 mg IM Q6H PRN PRN Reason: Agitation Ondansetron HCl (Ondansetron 4 Mg/2 Ml Vial) 4 mg IV Q4HP PRN; Protocol PRN Reason: Nausea And Vomiting Ondansetron HCl (Ondansetron 4 Mg Odt Tablet) 4 mg SL Q4HP PRN; Protocol PRN Reason: Nausea And Vomiting Sodium Chloride (0.9 % Sodium Chloride 10 Ml Syringe) 10 ml IV Q8 [facility] Last Admin: 01/25/23 05:28 Dose: Not Given A/P Time Spent With Patient Time: Total time spent is greater than 50% in coordination of care (as documented) at patient's floor/unit and/or counseling patient: QUALITY VTE Deep Vein Thrombosis/Pulmonary Embolism Present on Admission: No
[2023-01-25] MEDS: 0.9 % SODIUM CHLORIDE 250 ML IV SCH ×2 (11:13→22:40)
[2023-01-25] MEDS: DEXMEDETOMIDINE 400 MCG in PREMIX 1 BAG IV SCH (20:29)
[2023-01-26] MEDS: HYDROmorphone 1 MG/ML SYRINGE IV PRN ×6 (01:58→22:00)
[2023-01-26] MEDS: LORazepam 2 MG/ML VIAL IV PRN ×5 (04:47→21:06)
[2023-01-26] MEDS: 0.9 % SODIUM CHLORIDE 10 ML SYRINGE IV SCH ×3 (04:48→21:03)
[2023-01-26] MEDS ORDERED: METHOCARBAMOL 750 MG TABLET PO PRN (10:29)
--- NOTE | 2023-01-26 10:30 | Internal Med Progress Note ---
SUBJECTIVE Subjective Patient information: Note initiated : 01/26/23 at 10:29 am Service Date, if different from initiated Date: [] Patient: Josue Calvin 62 y/o M admitted on 01/23/23 for altered. Chief Complaint: [] Additional PMFSH (Level 3 Only): History of present illness: 62 years old male with history of end-stage liver cirrhosis, variceal bleed, hepatic encephalopathy noncompliance with lactulose, alcohol abuse who has been on hospice presented to ER after hospice nurse could not find patient medication. Patient was noted to be agitated and confused, hospice nurse tried to find patient medication but was unable to do so and called EMS. EMS gave patient Ativan and ketamine. Patient was noted to be very confused. Work-up showed significantly elevated ammonia of 216 consistent with hepatic encephalopathy. Rest of the lab work was unremarkable. Dr Ortiz had goals of care discussion with patient's POA who wishes to keep patient comfortable on hospice care and does not wish to treat hyperammonemia. Discussed case with Amandeep on who is the POA, he was a bit frustrated that hospice nurse was not able to keep the patient at home. He stated he would only want patient to be comfort care at this point. 01/24. Last night patient was agitated and was thrashing arms and legs. He required mechanical restraints and was started on Precedex drip. On evaluation patient is calm and resting without agitation on Precedex drip. 01/25. Patient was restless last night, Ativan 2 mg is not touching him. He is with one-to-one sitter and still trying to come out of bed and fall risk. He is saying profanities due to confusion. It is hard to keep him still even in the chair without exposing him to risk of fall. He would benefit from being more comfortable will increase Ativan from 4 to 6 mg, will add olanzapine IM, IV Haldol is not available. 01/26. Overnight patient was restless and agitated was cussing, he received Ativan this morning at around 5 AM and now resting comfortably. He remains on one-to-one sitter. It is unclear why patient is not receiving as needed Ativan. This was discussed in [facility] that to keep patient comfortable there should be more liberal use of benzodiazepine and medications that can come him down and added to his comfort. Unfortunately we do not have psychotropic medications and transdermal patch from. There is some reluctance to use Haldol since that will limit his options for placement, case management has received denials from couple of places per report. Placement has been difficult Review of system 14 point review of system obtained, it was limited due to patient sedation Physical examination General General appearance: Resting in bed, appears comfortable, he just received Ativan this morning Head Head: Present atraumatic and normocephalic Eye Eye: Present PERRL and EOMI; Absent scleral icterus ENT ENT: Present mucous membranes moist Neck Neck: Present full ROM and trachea midline Chest Chest: Present normal inspection and symmetric chest wall rise Respiratory Respiratory: Present normal lung sounds bilaterally; Absent respiratory distress, rales/crackles, wheezes, stridor or accessory muscle use Cardiovascular Cardiovascular: Present normal rhythm, no murmurs heard Adbominal Abdominal: Present soft and normal bowel sounds; Absent distention, guarding, rebound or rigidity Extremities Extremities: Present normal inspection; Absent pedal edema or pretibial edema Back Back: Present normal inspection Neurological Neurological: Present sedated, appears to be resting comfortably Psychiatric Psychiatric: Unable to examine Skin Skin: Present scratch marie on the skin are healing Assessment and plan End-of-life care End-stage alcoholic liver cirrhosis Hepatic encephalopathy Alcohol abuse Hypertension Hyperlipidemia Bipolar disorder/PTSD Plan Will resume home medications including lactulose, Seroquel P.o. Ativan [id number] 3 times daily As needed Ativan and Dilaudid on board, encouraged generous use to keep patient comfortable so to avoid one-to-one sitter Patient behavior was well controlled on Precedex which can be used again if needed Olanzapine IM 5 mg every 6 hours as needed Haldol is not available Discussed in detail with POA, wishes patient only to be on hospice care/comfort care Placement is difficult, case management received some denials, they are still working on it. Total time taken 40 minutes Constitutional Vitals: Vital Signs Temp Pulse Resp BP Pulse Ox O2 Del Method O2 Flow Rate 98.8 F 78 18 109/69 100 Room Air 0 01/26/23 07:42 01/26/23 07:42 01/26/23 07:42 01/26/23 07:42 01/26/23 07:42 01/26/23 07:42 01/24/23 04:00 Period Temp Pulse Resp BP Sys/Hodges Pulse Ox O2 Del Method O2 Flow Rate Last 24 Hr 97.6 F-98.8 F 66-78 14-18 109-116/68-69 92-100 Room Air-Room Air Intake and Output 01/25/23 01/26/23 01/26/23 19:59 03:59 11:59 Intake Total 400 480 Output Total 775 250 Balance -775 150 480 Weight 70.67 kg Intake & Output: Intake & Output 01/25/23 01/26/23 01/26/23 19:59 03:59 11:59 Intake Total 400 480 Output Total 775 250 Balance -775 150 480 Weight 70.67 kg Intake: Oral 400 480 Output: Urine Catheter Amount 475 250 Stool 300 Other: Meal Breakfast Percent of Meal Consumed 25% Feeding Ability Needs Supervision Urine Appearance Clear Clear Urine Color Yellow Dark Yellow Dark Yellow Urine Odor Strong Stool Size Moderate Stool Color Yellow Stool Consistency Soft Liquid # of times incontinent of 1 Bowels OBJ DATA Labs 01/23/23 13:53 Labs: Abnormal Lab Results 01/23/23 01/23/23 01/23/23 21:36 16:55 14:27 RBC Hgb Hct POC Hct RDW Plt Count Lymph % (Auto) Eos % (Auto) Lymph # (Auto) Eos # (Auto) POC VBG pCO2 at Temp POC VBG pO2 POC VBG HCO3 POC VBG Total CO2 POC Venous O2 Sat POC VBG Base Excess VBG Lactic Acid 3.9 H* POC Chloride POC Total CO2 POC BUN POC Creatinine POC Glucose Total Bilirubin Direct Bilirubin Alkaline Phosphatase Ammonia 216 H Globulin Procalcitonin Urine Opiates Screen Suspect positive A Ur Oxycodone Screen Suspect positive A U Marijuana (THC) Screen Suspect positive A 01/23/23 01/23/23 01/23/23 13:53 13:53 13:52 RBC 4.05 L Hgb 12.0 L Hct 34.8 L POC Hct RDW 14.7 H Plt Count 84 L Lymph % (Auto) 12.5 L Eos % (Auto) 30.5 H Lymph # (Auto) 0.94 L Eos # (Auto) 2.29 H POC VBG pCO2 at Temp POC VBG pO2 POC VBG HCO3 POC VBG Total CO2 POC Venous O2 Sat POC VBG Base Excess VBG Lactic Acid POC Chloride POC Total CO2 POC BUN POC Creatinine POC Glucose Total Bilirubin 1.1 H Direct Bilirubin 0.3 H Alkaline Phosphatase 130 H Ammonia Globulin 3.9 H Procalcitonin 0.10 H Urine Opiates Screen Ur Oxycodone Screen U Marijuana (THC) Screen 01/23/23 01/23/23 13:43 13:41 RBC Hgb Hct POC Hct 35.0 L RDW Plt Count Lymph % (Auto) Eos % (Auto) Lymph # (Auto) Eos # (Auto) POC VBG pCO2 at Temp 24.5 L POC VBG pO2 83 H POC VBG HCO3 15.0 L POC VBG Total CO2 16.0 L POC Venous O2 Sat 96.0 H POC VBG Base Excess -10.0 L VBG Lactic Acid 10.1 H* POC Chloride 112 H POC Total CO2 16.0 L POC BUN 28 H POC Creatinine 1.7 H POC Glucose 111 H Total Bilirubin Direct Bilirubin Alkaline Phosphatase Ammonia Globulin Procalcitonin Urine Opiates Screen Ur Oxycodone Screen U Marijuana (THC) Screen Meds: Medications Haloperidol Lactate (Haloperidol Lactate 2 Mg/Ml Oral.Sharon) 4 mg PT TIDP PRN PRN Reason: ANXIETY/SEDATION Hydromorphone HCl (Hydromorphone 1 Mg/Ml Syringe) 0.5 - 2 mg IV Q2HP PRN; Protocol PRN Reason: Per Pain Protocol Last Admin: 01/26/23 09:51 Dose: 1 mg Dexmedetomidine HCl 400 mcg/ (Premix) 100 mls @ 4.082 mls/hr IV .Q24H ON [facility] OF [facility]; Protocol Last Admin: 01/25/23 20:29 Dose: Not Given Sodium Chloride (Sodium Chloride 0.9%) 250 mls @ 20 mls/hr IV .[id number] ON LICENSE OF [facility] Last Admin: 01/25/23 22:40 Dose: Not Given Lorazepam (Lorazepam 2 Mg/Ml Vial) 0 mg IV Q1HP PRN; Protocol PRN Reason: ANXIETY/SEDATION Last Admin: 01/26/23 09:49 Dose: 4 mg Olanzapine (Olanzapine 10 Mg Vial) 5 mg IM Q6H PRN PRN Reason: Agitation Ondansetron HCl (Ondansetron 4 Mg/2 Ml Vial) 4 mg IV Q4HP PRN; Protocol PRN Reason: Nausea And Vomiting Ondansetron HCl (Ondansetron 4 Mg Odt Tablet) 4 mg SL Q4HP PRN; Protocol PRN Reason: Nausea And Vomiting Sodium Chloride (0.9 % Sodium Chloride 10 Ml Syringe) 10 ml IV Q8 [facility] Last Admin: 01/26/23 04:48 Dose: 10 ml A/P Time Spent With Patient Time: Total time spent is greater than 50% in coordination of care (as documented) at patient's floor/unit and/or counseling patient: QUALITY VTE Deep Vein Thrombosis/Pulmonary Embolism Present on Admission: No
[2023-01-26] MEDS: OLANZapine 10 MG VIAL IM PRN ×2 (12:19→18:17)
[2023-01-26] MEDS: 0.9 % SODIUM CHLORIDE 250 ML IV SCH ×2 (12:20→22:55)
--- NOTE | 2023-01-26 13:29 | Internal Med Progress Note ---
SUBJECTIVE Subjective Patient information: Note initiated : 01/26/23 at 1:27 pm Service Date, if different from initiated Date: [] Patient: Josue Calvin 62 y/o M admitted on 01/23/23 for altered. Chief Complaint: [] Interval history: istory of present illness: 62 years old male with history of end-stage liver cirrhosis, variceal bleed, hepatic encephalopathy noncompliance with lactulose, alcohol abuse who has been on hospice presented to ER after hospice nurse could not find patient medication. Patient was noted to be agitated and confused, hospice nurse tried to find patient medication but was unable to do so and called EMS. EMS gave patient Ativan and ketamine. Patient was noted to be very confused. Work-up showed significantly elevated ammonia of 216 consistent with hepatic encephalopathy. Rest of the lab work was unremarkable. Dr Ortiz had goals of care discussion with patient's POA who wishes to keep patient comfortable on hospice care and does not wish to treat hyperammonemia. Discussed case with Crispin who is the POA, he was a bit frustrated that hospice nurse was not able to keep the patient at home. He stated he would only want patient to be comfort care at this point. 01/24. Last night patient was agitated and was thrashing arms and legs. He required mechanical restraints and was started on Precedex drip. On evaluation patient is calm and resting without agitation on Precedex drip. 01/25. Patient was restless last night, Ativan 2 mg is not touching him. He is with one-to-one sitter and still trying to come out of bed and fall risk. He is saying profanities due to confusion. It is hard to keep him still even in the chair without exposing him to risk of fall. He would benefit from being more comfortable will increase Ativan from 4 to 6 mg, will add olanzapine IM, IV Haldol is not available. 01/26. Overnight patient was restless and agitated was cussing, he received Ativan this morning at around 5 AM and now resting comfortably. He remains on one-to-one sitter. It is unclear why patient is not receiving as needed Ativan. This was discussed in MDT that to keep patient comfortable there should be more liberal use of benzodiazepine and medications that can come him down and added to his comfort. Unfortunately we do not have psychotropic medications and transdermal patch from. There is some reluctance to use Haldol since that will limit his options for placement, case management has received denials from couple of places per report. Placement has been difficult 01/27 Review of Systems: denies headache/fever/chills/nausea/vomiting/chest or abdominal pain/cough/dyspnea/diarrhea. Otherwise see above. PHYSICAL EXAM General: Alert, Awake, No acute Distress Eyes/N/T: EOMI, no scleral icterus, Head/Neck: neck supple, full ROM, CV: RRR, No murmurs, Pulm: Clear b/l, no wheezing/rhonchi/rales, no respiratory distress Abd: soft, nontender, +BS x4 Ext: no clubbing/cyanosis/edema, nontender Neuro: Alert, no focal deficits, moves all extremities, , sensations intact b/l upper/lower Psychiatric: Skin: warm/dry, normal color Constitutional Vitals: Vital Signs Temp Pulse Resp BP Pulse Ox O2 Del Method O2 Flow Rate 98.8 F 78 18 109/69 100 Room Air 0 01/26/23 07:42 01/26/23 07:42 01/26/23 07:42 01/26/23 07:42 01/26/23 07:42 01/26/23 07:42 01/24/23 04:00 Period Temp Pulse Resp BP Sys/Hodges Pulse Ox O2 Del Method O2 Flow Rate Last 24 Hr 97.6 F-98.8 F 66-78 14-18 109-116/68-69 92-100 Room Air-Room Air Intake and Output 01/26/23 01/26/23 01/26/23 03:59 11:59 19:59 Intake Total 400 480 Output Total 250 Balance 150 480 Intake & Output: Intake & Output 01/26/23 01/26/23 01/26/23 03:59 11:59 19:59 Intake Total 400 480 Output Total 250 Balance 150 480 Intake: Oral 400 480 Output: Urine Catheter Amount 250 Other: Meal Breakfast Percent of Meal Consumed 25% Feeding Ability Needs Supervision Urine Appearance Clear Urine Color Dark Yellow OBJ DATA Labs 01/23/23 13:53 Labs: Abnormal Lab Results 01/23/23 01/23/23 01/23/23 21:36 16:55 14:27 RBC Hgb Hct POC Hct RDW Plt Count Lymph % (Auto) Eos % (Auto) Lymph # (Auto) Eos # (Auto) POC VBG pCO2 at Temp POC VBG pO2 POC VBG HCO3 POC VBG Total CO2 POC Venous O2 Sat POC VBG Base Excess VBG Lactic Acid 3.9 H* POC Chloride POC Total CO2 POC BUN POC Creatinine POC Glucose Total Bilirubin Direct Bilirubin Alkaline Phosphatase Ammonia 216 H Globulin Procalcitonin Urine Opiates Screen Suspect positive A Ur Oxycodone Screen Suspect positive A U Marijuana (THC) Screen Suspect positive A 01/23/23 01/23/23 01/23/23 13:53 13:53 13:52 RBC 4.05 L Hgb 12.0 L Hct 34.8 L POC Hct RDW 14.7 H Plt Count 84 L Lymph % (Auto) 12.5 L Eos % (Auto) 30.5 H Lymph # (Auto) 0.94 L Eos # (Auto) 2.29 H POC VBG pCO2 at Temp POC VBG pO2 POC VBG HCO3 POC VBG Total CO2 POC Venous O2 Sat POC VBG Base Excess VBG Lactic Acid POC Chloride POC Total CO2 POC BUN POC Creatinine POC Glucose Total Bilirubin 1.1 H Direct Bilirubin 0.3 H Alkaline Phosphatase 130 H Ammonia Globulin 3.9 H Procalcitonin 0.10 H Urine Opiates Screen Ur Oxycodone Screen U Marijuana (THC) Screen 01/23/23 01/23/23 13:43 13:41 RBC Hgb Hct POC Hct 35.0 L RDW Plt Count Lymph % (Auto) Eos % (Auto) Lymph # (Auto) Eos # (Auto) POC VBG pCO2 at Temp 24.5 L POC VBG pO2 83 H POC VBG HCO3 15.0 L POC VBG Total CO2 16.0 L POC Venous O2 Sat 96.0 H POC VBG Base Excess -10.0 L VBG Lactic Acid 10.1 H* POC Chloride 112 H POC Total CO2 16.0 L POC BUN 28 H POC Creatinine 1.7 H POC Glucose 111 H Total Bilirubin Direct Bilirubin Alkaline Phosphatase Ammonia Globulin Procalcitonin Urine Opiates Screen Ur Oxycodone Screen U Marijuana (THC) Screen Meds: Medications Furosemide (Furosemide 40 Mg Tablet) 40 mg PO QAM [facility] Haloperidol Lactate (Haloperidol Lactate 2 Mg/Ml Oral.Sharon) 4 mg PT TIDP PRN PRN Reason: ANXIETY/SEDATION Hydromorphone HCl (Hydromorphone 1 Mg/Ml Syringe) 0.5 - 2 mg IV Q2HP PRN; Protocol PRN Reason: Per Pain Protocol Last Admin: 01/26/23 11:40 Dose: 1 mg Dexmedetomidine HCl 400 mcg/ (Premix) 100 mls @ 4.082 mls/hr IV .Q24H [facility]; Protocol Last Admin: 01/25/23 20:29 Dose: Not Given Sodium Chloride (Sodium Chloride 0.9%) 250 mls @ 20 mls/hr IV .[id number] [facility] Last Admin: 01/26/23 12:20 Dose: Not Given Lactulose (Lactulose 20 Gm/30 Ml Oral.Sharon) 20 gm PO BID [facility] Lorazepam (Lorazepam 2 Mg/Ml Vial) 0 mg IV Q1HP PRN; Protocol PRN Reason: ANXIETY/SEDATION Last Admin: 01/26/23 11:40 Dose: 4 mg Lorazepam (Lorazepam 1 Mg Tablet) 1 mg PO TID [facility] Methocarbamol (Methocarbamol 750 Mg Tablet) 750 mg PO Q8HP PRN PRN Reason: pain, moderate Olanzapine (Olanzapine 10 Mg Vial) 5 mg IM Q6H PRN PRN Reason: Agitation Last Admin: 01/26/23 12:19 Dose: 5 mg Ondansetron HCl (Ondansetron 4 Mg/2 Ml Vial) 4 mg IV Q4HP PRN; Protocol PRN Reason: Nausea And Vomiting Ondansetron HCl (Ondansetron 4 Mg Odt Tablet) 4 mg SL Q4HP PRN; Protocol PRN Reason: Nausea And Vomiting Quetiapine Fumarate (Quetiapine 100 Mg Tablet) 100 mg PO QHS [facility] Sodium Chloride (0.9 % Sodium Chloride 10 Ml Syringe) 10 ml IV Q8 [facility] Last Admin: 01/26/23 04:48 Dose: 10 ml Spironolactone (Spironolactone 25 Mg Tablet) 50 mg PO DAILY [facility] A/P Narrative A/P Narrative: Assessment: *End-stage alcoholic liver cirrhosis *Hepatic encephalopathy *Alcohol abuse *Hypertension *Hyperlipidemia *Bipolar disorder/PTSD Plan: -End-of-life care -Will resume home medications including lactulose, Seroquel -P.o. Ativan [id number] 3 times daily -As needed Ativan and Dilaudid on board, encouraged generous use to keep patient comfortable so to avoid one-to-one sitter -Olanzapine IM 5 mg every 6 hours as needed, Haldol is not available -Discussed in detail with POA, wishes patient only to be on hospice care/comfort care -Placement is difficult, case management received some denials, they are still working on it. Time Spent With Patient Time: Total time spent is greater than 50% in coordination of care (as documented) at patient's floor/unit and/or counseling patient: QUALITY VTE Deep Vein Thrombosis/Pulmonary Embolism Present on Admission: No
[2023-01-26] MEDS: LORazepam 1 MG TABLET PO SCH ×2 (16:02→21:04)
[2023-01-26] MEDS: DEXMEDETOMIDINE 400 MCG in PREMIX 1 BAG IV SCH (19:55)
[2023-01-26] MEDS: LACTULOSE 20 GM/30 ML ORAL.SOL PO SCH (21:04)
[2023-01-26] MEDS: QUEtiapine 100 MG TABLET PO SCH (21:04)
[2023-01-27] MEDS: OLANZapine 10 MG VIAL IM PRN (00:18)
[2023-01-27] MEDS: LORazepam 2 MG/ML VIAL IV PRN ×9 (02:07→23:26)
[2023-01-27] MEDS: HYDROmorphone 1 MG/ML SYRINGE IV PRN ×7 (02:22→22:41)
--- NOTE | 2023-01-27 07:36 | Internal Med Progress Note ---
SUBJECTIVE Subjective Patient information: Note initiated : 01/27/23 at 7:34 am Service Date, if different from initiated Date: [] Patient: Josue Calvin 62 y/o M admitted on 01/23/23 for altered. Chief Complaint: [] Interval history: istory of present illness: 62 years old male with history of end-stage liver cirrhosis, variceal bleed, hepatic encephalopathy noncompliance with lactulose, alcohol abuse who has been on hospice presented to ER after hospice nurse could not find patient medication. Patient was noted to be agitated and confused, hospice nurse tried to find patient medication but was unable to do so and called EMS. EMS gave patient Ativan and ketamine. Patient was noted to be very confused. Work-up showed significantly elevated ammonia of 216 consistent with hepatic encephalopathy. Rest of the lab work was unremarkable. Dr Ortiz had goals of care discussion with patient's POA who wishes to keep patient comfortable on hospice care and does not wish to treat hyperammonemia. Discussed case with Crispin who is the POA, he was a bit frustrated that hospice nurse was not able to keep the patient at home. He stated he would only want patient to be comfort care at this point. 01/24. Last night patient was agitated and was thrashing arms and legs. He required mechanical restraints and was started on Precedex drip. On evaluation patient is calm and resting without agitation on Precedex drip. 01/25. Patient was restless last night, Ativan 2 mg is not touching him. He is with one-to-one sitter and still trying to come out of bed and fall risk. He is saying profanities due to confusion. It is hard to keep him still even in the chair without exposing him to risk of fall. He would benefit from being more comfortable will increase Ativan from 4 to 6 mg, will add olanzapine IM, IV Haldol is not available. 01/26. Overnight patient was restless and agitated was cussing, he received Ativan this morning at around 5 AM and now resting comfortably. He remains on one-to-one sitter. It is unclear why patient is not receiving as needed Ativan. This was discussed in MDT that to keep patient comfortable there should be more liberal use of benzodiazepine and medications that can come him down and added to his comfort. Unfortunately we do not have psychotropic medications and transdermal patch from. There is some reluctance to use Haldol since that will limit his options for placement, case management has received denials from couple of places per report. Placement has been difficult 01/27 Patient seemed a mildly restless this morning. Essentially nonverbal. Discussed case with nurse who has been speaking with [facility]. Patient is a comfort care only patient. Will review medications and make sure appropriate comfort care medications are available to address any agitation or discomfort. Review of Systems: denies headache/fever/chills/nausea/vomiting/chest or abdominal pain/cough/dyspnea/diarrhea. Otherwise see above. PHYSICAL EXAM General: drowsy, somewhat restless, Eyes/N/T: EOMI, no scleral icterus, Head/Neck: neck supple, full ROM, CV: RRR, No murmurs, Pulm: Clear b/l, no wheezing/rhonchi/rales, no respiratory distress Abd: soft, nontender, +BS x4 Ext: no clubbing/cyanosis/edema, nontender Neuro: moves all extremities, , sensations intact b/l upper/lower Psychiatric: Skin: warm/dry, normal color Constitutional Vitals: Vital Signs Temp Pulse Resp BP Pulse Ox O2 Del Method O2 Flow Rate 98.9 F 77 20 145/62 98 Room Air 0 01/26/23 18:22 01/26/23 18:22 01/26/23 18:22 01/26/23 18:22 01/26/23 18:22 01/26/23 18:22 01/24/23 04:00 Period Temp Pulse Resp BP Sys/Hodges Pulse Ox O2 Del Method O2 Flow Rate Last 24 Hr 98.8 F-98.9 F 77-78 18-20 109-145/62-69 98-100 Room Air-Room Air Intake and Output 01/26/23 01/27/23 01/27/23 19:59 03:59 11:59 Intake Total 200 Output Total 1350 250 300 Balance -1350 -50 -300 Weight 71.532 kg Intake & Output: Intake & Output 01/26/23 01/27/23 01/27/23 19:59 03:59 11:59 Intake Total 200 Output Total 1350 250 300 Balance -1350 -50 -300 Weight 71.532 kg Intake: Oral 200 Output: Urine Catheter Amount 1350 250 300 Other: Meal Lunch Dinner Percent of Meal Consumed alseep Refused Urine Appearance Clear Clear Clear Urine Color Dark Yellow Dark Yellow Dark Yellow Urine Odor Normal Stool Size Moderate Stool Color Brown Yellow Stool Consistency Soft Loose # of times incontinent of 1 Bowels OBJ DATA Labs 01/23/23 13:53 Meds: Medications Furosemide (Furosemide 40 Mg Tablet) 40 mg PO QAM [facility] Haloperidol Lactate (Haloperidol Lactate 2 Mg/Ml Oral.Sharon) 4 mg PT TIDP PRN PRN Reason: ANXIETY/SEDATION Hydromorphone HCl (Hydromorphone 1 Mg/Ml Syringe) 0.5 - 2 mg IV Q2HP PRN; Protocol PRN Reason: Per Pain Protocol Last Admin: 01/27/23 02:22 Dose: 1 mg Dexmedetomidine HCl 400 mcg/ (Premix) 100 mls @ 4.082 mls/hr IV .Q24H [facility]; Protocol Last Admin: 01/26/23 19:55 Dose: Not Given Sodium Chloride (Sodium Chloride 0.9%) 250 mls @ 20 mls/hr IV .[id number] [facility] Last Admin: 01/26/23 22:55 Dose: Not Given Lactulose (Lactulose 20 Gm/30 Ml Oral.Sharon) 20 gm PO BID [facility] Last Admin: 01/26/23 21:04 Dose: Not Given Lorazepam (Lorazepam 2 Mg/Ml Vial) 0 mg IV Q1HP PRN; Protocol PRN Reason: ANXIETY/SEDATION Last Admin: 01/27/23 06:28 Dose: 4 mg Lorazepam (Lorazepam 1 Mg Tablet) 1 mg PO TID [facility] Last Admin: 01/26/23 21:04 Dose: Not Given Methocarbamol (Methocarbamol 750 Mg Tablet) 750 mg PO Q8HP PRN PRN Reason: pain, moderate Olanzapine (Olanzapine 10 Mg Vial) 5 mg IM Q6H PRN PRN Reason: Agitation Last Admin: 01/27/23 00:18 Dose: 5 mg Ondansetron HCl (Ondansetron 4 Mg/2 Ml Vial) 4 mg IV Q4HP PRN; Protocol PRN Reason: Nausea And Vomiting Ondansetron HCl (Ondansetron 4 Mg Odt Tablet) 4 mg SL Q4HP PRN; Protocol PRN Reason: Nausea And Vomiting Quetiapine Fumarate (Quetiapine 100 Mg Tablet) 100 mg PO QHS [facility] Last Admin: 01/26/23 21:04 Dose: Not Given Sodium Chloride (0.9 % Sodium Chloride 10 Ml Syringe) 10 ml IV Q8 [facility] Last Admin: 01/26/23 21:03 Dose: 10 ml Spironolactone (Spironolactone 25 Mg Tablet) 50 mg PO DAILY [facility] A/P Narrative A/P Narrative: Assessment: *End-stage alcoholic liver cirrhosis *Hepatic encephalopathy *Alcohol abuse *Hypertension *Hyperlipidemia *Bipolar disorder/PTSD Plan: -End-of-life care -Comfort care only -Patient family support -Discussed in detail with POA, wishes patient only to be on comfort care -pending placement if remains stable Time Spent With Patient Time: Total time spent is greater than 50% in coordination of care (as documented) at patient's floor/unit and/or counseling patient: Subsequent: Total time with patient: 35 - 49 minutes QUALITY VTE Deep Vein Thrombosis/Pulmonary Embolism Present on Admission: No
[2023-01-27] MEDS: 0.9 % SODIUM CHLORIDE 10 ML SYRINGE IV SCH ×3 (07:42→22:11)
[2023-01-27] MEDS: LORazepam 1 MG TABLET PO SCH (08:31)
[2023-01-27] MEDS: LACTULOSE 20 GM/30 ML ORAL.SOL PO SCH (08:31)
[2023-01-27] MEDS ORDERED: SPIRONOLACTONE 25 MG TABLET PO SCH (09:00)
[2023-01-27] MEDS ORDERED: FUROSEMIDE 40 MG TABLET PO SCH (09:00)
[2023-01-27] MEDS: OLANZapine 10 MG VIAL IV PRN ×2 (11:08→18:24)
--- NOTE | 2023-01-27 11:57 | Discharge Summary ---
Discharge Provider Provider IMPORTANT FOLLOW-UP INFORMATION FOR PCP: Patient information: Note initiated : 01/27/23 at 11:56 am Service Date, if different from initiated Date: [] Patient: Josue Calvin 62 y/o M admitted on 01/23/23 for altered. Chief Complaint: [] Date of admission: 01/23/23 20:21 Discharge date: 01/31/23 Primary care physician: Torin Rubin PA-C Consults: 01/23/23 18:05 Consult to Physician [CONS] Stat Comment: Consulting Provider: Vimal Alvarado Reason For Exam: Physician to Consult COURSE Hospital Course Hospital course: History of present illness: 62 years old male with history of end-stage liver cirrhosis, variceal bleed, hepatic encephalopathy noncompliance with lactulose, alcohol abuse who has been on hospice presented to ER after hospice nurse could not find patient medication. Patient was noted to be agitated and confused, hospice nurse tried to find patient medication but was unable to do so and called EMS. EMS gave patient Ativan and ketamine. Patient was noted to be very confused. Work-up showed significantly elevated ammonia of 216 consistent with hepatic encephalopathy. Rest of the lab work was unremarkable. Dr Ortiz had goals of care discussion with patient's POA who wishes to keep patient comfortable on hospice care and does not wish to treat hyperammonemia. Discussed case with Crispin who is the POA, he was a bit frustrated that hospice nurse was not able to keep the patient at home. He stated he would only want patient to be comfort care at this point. 01/24. Last night patient was agitated and was thrashing arms and legs. He required mechanical restraints and was started on Precedex drip. On evaluation patient is calm and resting without agitation on Precedex drip. 01/25. Patient was restless last night, Ativan 2 mg is not touching him. He is with one-to-one sitter and still trying to come out of bed and fall risk. He is saying profanities due to confusion. It is hard to keep him still even in the chair without exposing him to risk of fall. He would benefit from being more comfortable will increase Ativan from 4 to 6 mg, will add olanzapine IM, IV Haldol is not available. 01/26. Overnight patient was restless and agitated was cussing, he received Ativan this morning at around 5 AM and now resting comfortably. He remains on one-to-one sitter. It is unclear why patient is not receiving as needed Ativan. This was discussed in MDT that to keep patient comfortable there should be more liberal use of benzodiazepine and medications that can come him down and added to his comfort. Unfortunately we do not have psychotropic medications and transdermal patch from. There is some reluctance to use Haldol since that will limit his options for placement, case management has received denials from couple of places per report. Placement has been difficult 01/27 Patient seemed a mildly restless this morning. Essentially nonverbal. Discussed case with nurse who has been speaking with POA. Patient is a comfort care only patient. Will review medications and make sure appropriate comfort care medications are available to address any agitation or discomfort. 01/28 Patient sleeping. Appears comfortable. Verbally nonresponsive. 01/29 Patient sleeping and again appears comfortable. Minimally responsive. 01/30 Patient awake but drowsy. Appears comfortable. Responds to voice partially. 01/31 Patient awake but drowsy appears comfortable. Discharge to rehab comfort focus Assessment: *End-stage alcoholic liver cirrhosis *Hepatic encephalopathy *Alcohol abuse *Hypertension *Hyperlipidemia *Bipolar disorder/PTSD Plan: -End-of-life care -Comfort care only Discharge diagnosis: End-stage alcoholic liver cirrhosis hepatic encephalopathy alcohol abuse Secondary discharge diagnosis: Hypertension of lipidemia bipolar disorder Time Spent with Patient Time attestation: Total time spent providing and/or coordinating discharge services: Time spent: Greater than 30 minutes EXAM Constitutional Vitals: Temp Pulse Resp BP Pulse Ox O2 Del Method O2 Flow Rate 100.5 F H 69 24 H 156/89 99 Room Air 0 01/27/23 08:26 01/27/23 08:26 01/27/23 08:26 01/27/23 08:26 01/27/23 08:26 01/27/23 08:26 01/24/23 04:00 Discharge Plan Patient/Caregiver Discharge Instructions Activity: increase activity as tolerated Diet: Regular Diet Activity Restrictions/Additional Instructions: Follow-up with hospice Prescriptions: New morphine 20 mg/5 mL (4 mg/mL) solution 10 mg PO Q1-2HP PRN (Reason: pain) Qty: 100 0RF hyoscyamine sulfate [Levsin/SL] 0.125 mg tablet, sublingual 0.125 mg sublingual QID PRN (Reason: terminal secretions) Qty: 20 0RF ondansetron 4 mg tablet,disintegrating 4 mg translingual Q6H PRN (Reason: nausea and vomiting) Qty: 30 0RF lorazepam 2 mg/mL concentrate 1 mg sublingual Q2HP PRN (Reason: anxiety) Qty: 30 0RF Continued quetiapine 100 mg tablet 100 mg PO QHS Qty: 30 1RF morphine 30 mg tablet extended release 30 mg PO TID 28 Days Qty: 84 0RF oxycodone 5 mg tablet 5 mg PO TID PRN (Reason: pain) 28 Days Qty: 84 0RF lactulose 10 gram/15 mL solution 20 g PO QDAY Qty: 473 3RF methocarbamol 750 mg tablet 750 mg PO Q8H PRN (Reason: pain, moderate) Qty: 60 1RF Discontinued duloxetine 30 mg capsule,delayed release(DR/EC) 30 mg PO BID Qty: 60 0RF ondansetron HCl 4 mg tablet 8 mg PO QDAY Qty: 60 0RF spironolactone 50 mg tablet 50 mg PO QAM Qty: 30 0RF furosemide 40 mg tablet 40 mg PO QAM Qty: 30 0RF lorazepam 0.5 mg tablet 0.5 mg PO BID Qty: 60 0RF meloxicam 15 mg tablet 15 mg PO QDAY Follow Up Plan Follow up with: Torin Rubin PA-C [Primary Care Provider] - Patient Disposition: Xfer SNF Prognosis: Serious Discharge Orders: Discharge Order (Routine); Ordered 01/31/23 Ordered By: Georges Michelle [facility] VTE Deep Vein Thrombosis/Pulmonary Embolism Present on Admission: No
[2023-01-27] MEDS: 0.9 % SODIUM CHLORIDE 250 ML IV SCH (18:18)
[2023-01-27] MEDS: QUEtiapine 100 MG TABLET PO SCH (21:40)
[2023-01-28] MEDS: OLANZapine 10 MG VIAL IV PRN ×2 (00:21→18:32)
[2023-01-28] MEDS: HYDROmorphone 1 MG/ML SYRINGE IV PRN ×7 (00:40→18:32)
[2023-01-28] MEDS: LORazepam 2 MG/ML VIAL IV PRN ×4 (01:09→05:21)
[2023-01-28] MEDS: 0.9 % SODIUM CHLORIDE 250 ML IV SCH ×2 (01:46→18:20)
[2023-01-28] MEDS: 0.9 % SODIUM CHLORIDE 10 ML SYRINGE IV SCH ×3 (05:22→21:22)
--- NOTE | 2023-01-28 11:03 | Internal Med Progress Note ---
SUBJECTIVE Subjective Patient information: Note initiated : 01/28/23 at 11:00 am Service Date, if different from initiated Date: [] Patient: Josue Calvin 62 y/o M admitted on 01/23/23 for altered. Chief Complaint: [] Interval history: istory of present illness: 62 years old male with history of end-stage liver cirrhosis, variceal bleed, hepatic encephalopathy noncompliance with lactulose, alcohol abuse who has been on hospice presented to ER after hospice nurse could not find patient medication. Patient was noted to be agitated and confused, hospice nurse tried to find patient medication but was unable to do so and called EMS. EMS gave patient Ativan and ketamine. Patient was noted to be very confused. Work-up showed significantly elevated ammonia of 216 consistent with hepatic encephalopathy. Rest of the lab work was unremarkable. Dr Ortiz had goals of care discussion with patient's POA who wishes to keep patient comfortable on hospice care and does not wish to treat hyperammonemia. Discussed case with Crispin who is the POA, he was a bit frustrated that hospice nurse was not able to keep the patient at home. He stated he would only want patient to be comfort care at this point. 01/24. Last night patient was agitated and was thrashing arms and legs. He required mechanical restraints and was started on Precedex drip. On evaluation patient is calm and resting without agitation on Precedex drip. 01/25. Patient was restless last night, Ativan 2 mg is not touching him. He is with one-to-one sitter and still trying to come out of bed and fall risk. He is saying profanities due to confusion. It is hard to keep him still even in the chair without exposing him to risk of fall. He would benefit from being more comfortable will increase Ativan from 4 to 6 mg, will add olanzapine IM, IV Haldol is not available. 01/26. Overnight patient was restless and agitated was cussing, he received Ativan this morning at around 5 AM and now resting comfortably. He remains on one-to-one sitter. It is unclear why patient is not receiving as needed Ativan. This was discussed in MDT that to keep patient comfortable there should be more liberal use of benzodiazepine and medications that can come him down and added to his comfort. Unfortunately we do not have psychotropic medications and transdermal patch from. There is some reluctance to use Haldol since that will limit his options for placement, case management has received denials from couple of places per report. Placement has been difficult 01/27 Patient seemed a mildly restless this morning. Essentially nonverbal. Discussed case with nurse who has been speaking with POA. Patient is a comfort care only patient. Will review medications and make sure appropriate comfort care medications are available to address any agitation or discomfort. 01/28 Patient sleeping. Appears comfortable. Verbally nonresponsive. Review of Systems: Unable to obtain given patient's unresponsiveness PHYSICAL EXAM General: sleeping, no acute distress, Eyes/N/T: Head/Neck: neck supple, full ROM, CV: RRR, No murmurs, Pulm: Clear b/l, no wheezing/rhonchi/rales, no respiratory distress Abd: soft, nontender, +BS x4 Ext: no clubbing/cyanosis/edema, nontender Neuro: moves all extremities, , sensations intact b/l upper/lower Psychiatric: Skin: warm/dry, normal color Constitutional Vitals: Vital Signs Temp Pulse Resp BP Pulse Ox O2 Del Method O2 Flow Rate 98.0 F 76 26 H 140/60 98 Room Air 0 01/28/23 08:00 01/28/23 08:00 01/28/23 08:00 01/28/23 08:00 01/28/23 08:00 01/28/23 08:00 01/24/23 04:00 Period Temp Pulse Resp BP Sys/Hodges Pulse Ox O2 Del Method O2 Flow Rate Last 24 Hr 98.0 F-98.1 F 70-76 24-26 140-158/60-80 98-99 Room Air-Room Air Intake and Output 01/27/23 01/28/23 01/28/23 19:59 03:59 11:59 Output Total 375 475 Balance -375 -475 Weight 70.307 kg Intake & Output: Intake & Output 01/27/23 01/28/23 01/28/23 19:59 03:59 11:59 Output Total 375 475 Balance -375 -475 Weight 70.307 kg Output: Urine Catheter Amount 375 475 Other: Urine Appearance Cloudy Clear Uretheral ([place]) Cloudy Clear Urine Color Red Brown Tea Colored Uretheral ([place]) Dark Yellow Light Maria Luisa Urine Odor Normal OBJ DATA Labs 01/23/23 13:53 Meds: Medications Hydromorphone HCl (Hydromorphone 1 Mg/Ml Syringe) 0.5 - 2 mg IV Q2HP PRN; Protocol PRN Reason: Per Pain Protocol Last Admin: 01/28/23 10:40 Dose: 2 mg Sodium Chloride (Sodium Chloride 0.9%) 250 mls @ 20 mls/hr IV .[id number] [facility] Last Admin: 01/28/23 01:46 Dose: Not Given Lorazepam (Lorazepam 2 Mg/Ml Vial) 0 mg IV Q1HP PRN; Protocol PRN Reason: ANXIETY/SEDATION Last Admin: 01/28/23 05:21 Dose: 6 mg Methocarbamol (Methocarbamol 750 Mg Tablet) 750 mg PO Q8HP PRN PRN Reason: pain, moderate Olanzapine (Olanzapine 10 Mg Vial) 5 mg IV Q6HP PRN PRN Reason: Agitation Last Admin: 01/28/23 00:21 Dose: 5 mg Ondansetron HCl (Ondansetron 4 Mg/2 Ml Vial) 4 mg IV Q4HP PRN; Protocol PRN Reason: Nausea And Vomiting Ondansetron HCl (Ondansetron 4 Mg Odt Tablet) 4 mg SL Q4HP PRN; Protocol PRN Reason: Nausea And Vomiting Quetiapine Fumarate (Quetiapine 100 Mg Tablet) 100 mg PO QHS [facility] Last Admin: 01/27/23 21:40 Dose: Not Given Sodium Chloride (0.9 % Sodium Chloride 10 Ml Syringe) 10 ml IV Q8 [facility] Last Admin: 01/28/23 05:22 Dose: 10 ml A/P Narrative A/P Narrative: Assessment: *End-stage alcoholic liver cirrhosis *Hepatic encephalopathy *Alcohol abuse *Hypertension *Hyperlipidemia *Bipolar disorder/PTSD Plan: -End-of-life care -Comfort care only -Patient family support -Discussed in detail with POA, wishes patient only to be on comfort care -pending placement if remains stable Time Spent With Patient Time: Total time spent is greater than 50% in coordination of care (as documented) at patient's floor/unit and/or counseling patient: QUALITY VTE Deep Vein Thrombosis/Pulmonary Embolism Present on Admission: No
[2023-01-28] MEDS: morphine 20 MG/ML ORAL.CONC SL PRN (14:03)
[2023-01-28] MEDS: LORazepam 2 MG/ML ORAL.SOL SL PRN (14:31)
[2023-01-28] MEDS: QUEtiapine 100 MG TABLET PO SCH (20:15)
[2023-01-29] MEDS: 0.9 % SODIUM CHLORIDE 250 ML IV SCH ×2 (02:32→17:34)
[2023-01-29] MEDS: LORazepam 2 MG/ML VIAL IV PRN ×8 (02:47→22:34)
[2023-01-29] MEDS: HYDROmorphone 1 MG/ML SYRINGE IV PRN ×6 (03:07→23:27)
[2023-01-29] MEDS: 0.9 % SODIUM CHLORIDE 10 ML SYRINGE IV SCH ×3 (04:22→21:41)
[2023-01-29] MEDS: OLANZapine 10 MG VIAL IV PRN ×2 (04:22→18:47)
--- NOTE | 2023-01-29 08:00 | Internal Med Progress Note ---
SUBJECTIVE Subjective Patient information: Note initiated : 01/29/23 at 8:00 am Service Date, if different from initiated Date: [] Patient: Josue Calvin 62 y/o M admitted on 01/23/23 for altered. Chief Complaint: [] Interval history: istory of present illness: 62 years old male with history of end-stage liver cirrhosis, variceal bleed, hepatic encephalopathy noncompliance with lactulose, alcohol abuse who has been on hospice presented to ER after hospice nurse could not find patient medication. Patient was noted to be agitated and confused, hospice nurse tried to find patient medication but was unable to do so and called EMS. EMS gave patient Ativan and ketamine. Patient was noted to be very confused. Work-up showed significantly elevated ammonia of 216 consistent with hepatic encephalopathy. Rest of the lab work was unremarkable. Dr Ortiz had goals of care discussion with patient's POA who wishes to keep patient comfortable on hospice care and does not wish to treat hyperammonemia. Discussed case with Crispin who is the POA, he was a bit frustrated that hospice nurse was not able to keep the patient at home. He stated he would only want patient to be comfort care at this point. 01/24. Last night patient was agitated and was thrashing arms and legs. He required mechanical restraints and was started on Precedex drip. On evaluation patient is calm and resting without agitation on Precedex drip. 01/25. Patient was restless last night, Ativan 2 mg is not touching him. He is with one-to-one sitter and still trying to come out of bed and fall risk. He is saying profanities due to confusion. It is hard to keep him still even in the chair without exposing him to risk of fall. He would benefit from being more comfortable will increase Ativan from 4 to 6 mg, will add olanzapine IM, IV Haldol is not available. 01/26. Overnight patient was restless and agitated was cussing, he received Ativan this morning at around 5 AM and now resting comfortably. He remains on one-to-one sitter. It is unclear why patient is not receiving as needed Ativan. This was discussed in MDT that to keep patient comfortable there should be more liberal use of benzodiazepine and medications that can come him down and added to his comfort. Unfortunately we do not have psychotropic medications and transdermal patch from. There is some reluctance to use Haldol since that will limit his options for placement, case management has received denials from couple of places per report. Placement has been difficult 01/27 Patient seemed a mildly restless this morning. Essentially nonverbal. Discussed case with nurse who has been speaking with POR[facility]. Patient is a comfort care only patient. Will review medications and make sure appropriate comfort care medications are available to address any agitation or discomfort. 01/28 Patient sleeping. Appears comfortable. Verbally nonresponsive. 01/29 Patient sleeping and again appears comfortable. Minimally responsive. Review of Systems: Unable to obtain given patient's unresponsiveness PHYSICAL EXAM General: sleeping, no acute distress, Eyes/N/T: Head/Neck: neck supple, full ROM, CV: RRR, No murmurs, Pulm: mild b/l rhonchi, no wheezing Abd: soft, nontender, +BS x4 Ext: no clubbing/cyanosis/edema, nontender Skin: warm/dry, normal color Constitutional Vitals: Vital Signs Temp Pulse Resp BP Pulse Ox O2 Del Method O2 Flow Rate 98.4 F 88 24 H 148/68 88 L Room Air 0 01/28/23 20:00 01/28/23 20:00 01/28/23 20:00 01/28/23 20:00 01/28/23 20:00 01/28/23 20:00 01/24/23 04:00 Period Temp Pulse Resp BP Sys/Hodges Pulse Ox O2 Del Method O2 Flow Rate Last 24 Hr 98.4 F 88 24 148/68 88 Room Air Intake and Output 01/28/23 01/29/23 01/29/23 19:59 03:59 11:59 Output Total 325 600 Balance -325 -600 Weight 71.441 kg Intake & Output: Intake & Output 01/28/23 01/29/23 01/29/23 19:59 03:59 11:59 Output Total 325 600 Balance -325 -600 Weight 71.441 kg Output: Urine Catheter Amount 325 600 Other: Urine Appearance Clear Clear Clear Uretheral ([place]) Clear Urine Color Dark Maria Luisa Dark Maria Luisa Dark Maria Luisa Uretheral ([place]) Dark Maria Luisa Dark Maria Luisa Urine Odor Normal OBJ DATA Labs 01/23/23 13:53 Meds: Medications Hydromorphone HCl (Hydromorphone 1 Mg/Ml Syringe) 0.5 - 2 mg IV Q2HP PRN; Protocol PRN Reason: Per Pain Protocol Last Admin: 01/29/23 06:22 Dose: 2 mg Sodium Chloride (Sodium Chloride 0.9%) 250 mls @ 20 mls/hr IV .[id number] [facility] Last Admin: 01/29/23 02:32 Dose: Not Given Lorazepam (Lorazepam 2 Mg/Ml Vial) 0 mg IV Q1HP PRN; Protocol PRN Reason: ANXIETY/SEDATION Last Admin: 01/29/23 06:27 Dose: 6 mg Lorazepam (Lorazepam 2 Mg/Ml Oral.Sharon) 1 - 2 mg SL Q1HP PRN PRN Reason: ANXIETY/SEDATION Last Admin: 01/28/23 14:31 Dose: 1 mg Methocarbamol (Methocarbamol 750 Mg Tablet) 750 mg PO Q8HP PRN PRN Reason: pain, moderate Morphine Sulfate (Morphine 20 Mg/Ml Oral.Conc) 5 - 10 mg SL Q1HP PRN PRN Reason: Pain Last Admin: 01/28/23 14:03 Dose: 10 mg Olanzapine (Olanzapine 10 Mg Vial) 5 mg IV Q6HP PRN PRN Reason: Agitation Last Admin: 01/29/23 04:22 Dose: 5 mg Ondansetron HCl (Ondansetron 4 Mg/2 Ml Vial) 4 mg IV Q4HP PRN; Protocol PRN Reason: Nausea And Vomiting Ondansetron HCl (Ondansetron 4 Mg Odt Tablet) 4 mg SL Q4HP PRN; Protocol PRN Reason: Nausea And Vomiting Quetiapine Fumarate (Quetiapine 100 Mg Tablet) 100 mg PO QHS [facility] Last Admin: 01/28/23 20:15 Dose: Not Given Sodium Chloride (0.9 % Sodium Chloride 10 Ml Syringe) 10 ml IV Q8 [facility] Last Admin: 01/29/23 04:22 Dose: 10 ml A/P Narrative A/P Narrative: Assessment: *End-stage alcoholic liver cirrhosis *Hepatic encephalopathy *Alcohol abuse *Hypertension *Hyperlipidemia *Bipolar disorder/PTSD Plan: -End-of-life care -Comfort care only -Patient family support -pending placement if remains stable Time Spent With Patient Time: Total time spent is greater than 50% in coordination of care (as documented) at patient's floor/unit and/or counseling patient: QUALITY VTE Deep Vein Thrombosis/Pulmonary Embolism Present on Admission: No
[2023-01-29] MEDS: QUEtiapine 100 MG TABLET PO SCH (21:07)
[2023-01-30] MEDS: 0.9 % SODIUM CHLORIDE 250 ML IV SCH ×2 (02:24→17:00)
[2023-01-30] MEDS: OLANZapine 10 MG VIAL IV PRN ×2 (02:31→20:38)
[2023-01-30] MEDS: HYDROmorphone 1 MG/ML SYRINGE IV PRN ×5 (02:31→19:55)
[2023-01-30] MEDS: 0.9 % SODIUM CHLORIDE 10 ML SYRINGE IV SCH ×5 (04:22→21:35)
[2023-01-30] MEDS: LORazepam 2 MG/ML VIAL IV PRN ×7 (04:22→18:37)
--- NOTE | 2023-01-30 07:53 | Internal Med Progress Note ---
SUBJECTIVE Subjective Patient information: Note initiated : 01/30/23 at 7:53 am Service Date, if different from initiated Date: [] Patient: Josue Calvin 62 y/o M admitted on 01/23/23 for altered. Chief Complaint: [] Interval history: istory of present illness: 62 years old male with history of end-stage liver cirrhosis, variceal bleed, hepatic encephalopathy noncompliance with lactulose, alcohol abuse who has been on hospice presented to ER after hospice nurse could not find patient medication. Patient was noted to be agitated and confused, hospice nurse tried to find patient medication but was unable to do so and called EMS. EMS gave patient Ativan and ketamine. Patient was noted to be very confused. Work-up showed significantly elevated ammonia of 216 consistent with hepatic encephalopathy. Rest of the lab work was unremarkable. Dr Ortiz had goals of care discussion with patient's POA who wishes to keep patient comfortable on hospice care and does not wish to treat hyperammonemia. Discussed case with Crispin who is the POA, he was a bit frustrated that hospice nurse was not able to keep the patient at home. He stated he would only want patient to be comfort care at this point. 01/24. Last night patient was agitated and was thrashing arms and legs. He required mechanical restraints and was started on Precedex drip. On evaluation patient is calm and resting without agitation on Precedex drip. 01/25. Patient was restless last night, Ativan 2 mg is not touching him. He is with one-to-one sitter and still trying to come out of bed and fall risk. He is saying profanities due to confusion. It is hard to keep him still even in the chair without exposing him to risk of fall. He would benefit from being more comfortable will increase Ativan from 4 to 6 mg, will add olanzapine IM, IV Haldol is not available. 01/26. Overnight patient was restless and agitated was cussing, he received Ativan this morning at around 5 AM and now resting comfortably. He remains on one-to-one sitter. It is unclear why patient is not receiving as needed Ativan. This was discussed in MDT that to keep patient comfortable there should be more liberal use of benzodiazepine and medications that can come him down and added to his comfort. Unfortunately we do not have psychotropic medications and transdermal patch from. There is some reluctance to use Haldol since that will limit his options for placement, case management has received denials from couple of places per report. Placement has been difficult 01/27 Patient seemed a mildly restless this morning. Essentially nonverbal. Discussed case with nurse who has been speaking with POA. Patient is a comfort care only patient. Will review medications and make sure appropriate comfort care medications are available to address any agitation or discomfort. 01/28 Patient sleeping. Appears comfortable. Verbally nonresponsive. 01/29 Patient sleeping and again appears comfortable. Minimally responsive. 01/30 Patient awake but drowsy. Appears comfortable. Responds to voice partially. Review of Systems: Unable to obtain given patient's mentation PHYSICAL EXAM General: paritally awake, no acute distress, Eyes/N/T: Head/Neck: neck supple, full ROM, CV: RRR, No murmurs, Pulm: mild b/l rhonchi, no wheezing Abd: soft, nontender, +BS x4 Ext: no clubbing/cyanosis/edema, nontender Skin: warm/dry, normal color Constitutional Vitals: Vital Signs Temp Pulse Resp BP Pulse Ox O2 Del Method O2 Flow Rate 99.5 F H 109 H 20 145/84 85 L Room Air 0 01/29/23 18:52 01/29/23 18:52 01/29/23 18:52 01/29/23 18:52 01/29/23 18:52 01/29/23 18:52 01/24/23 04:00 Period Temp Pulse Resp BP Sys/Hodges Pulse Ox O2 Del Method O2 Flow Rate Last 24 Hr 99.5 F-100.0 F 109-109 20-24 145-152/84-84 85 Room Air-Room Air Intake and Output 01/29/23 01/30/23 01/30/23 19:59 03:59 11:59 Output Total 350 100 Balance -350 -100 Weight 69.581 kg Intake & Output: Intake & Output 01/29/23 01/30/23 01/30/23 19:59 03:59 11:59 Output Total 350 100 Balance -350 -100 Weight 69.581 kg Output: Urine Catheter Amount 350 100 Other: Urine Appearance Clear Clear Urine Color Tea Colored Dark Maria Luisa OBJ DATA Labs 01/23/23 13:53 Meds: Medications Hydromorphone HCl (Hydromorphone 1 Mg/Ml Syringe) 0.5 - 2 mg IV Q2HP PRN; Protocol PRN Reason: Per Pain Protocol Last Admin: 01/30/23 02:31 Dose: 2 mg Sodium Chloride (Sodium Chloride 0.9%) 250 mls @ 20 mls/hr IV .[id number] [facility] Last Admin: 01/30/23 02:24 Dose: Not Given Lorazepam (Lorazepam 2 Mg/Ml Vial) 0 mg IV Q1HP PRN; Protocol PRN Reason: ANXIETY/SEDATION Last Admin: 01/30/23 04:22 Dose: 6 mg Lorazepam (Lorazepam 2 Mg/Ml Oral.Sharon) 1 - 2 mg SL Q1HP PRN PRN Reason: ANXIETY/SEDATION Last Admin: 01/28/23 14:31 Dose: 1 mg Methocarbamol (Methocarbamol 750 Mg Tablet) 750 mg PO Q8HP PRN PRN Reason: pain, moderate Morphine Sulfate (Morphine 20 Mg/Ml Oral.Conc) 5 - 10 mg SL Q1HP PRN PRN Reason: Pain Last Admin: 01/28/23 14:03 Dose: 10 mg Olanzapine (Olanzapine 10 Mg Vial) 5 mg IV Q6HP PRN PRN Reason: Agitation Last Admin: 01/30/23 02:31 Dose: 5 mg Ondansetron HCl (Ondansetron 4 Mg/2 Ml Vial) 4 mg IV Q4HP PRN; Protocol PRN Reason: Nausea And Vomiting Ondansetron HCl (Ondansetron 4 Mg Odt Tablet) 4 mg SL Q4HP PRN; Protocol PRN Reason: Nausea And Vomiting Quetiapine Fumarate (Quetiapine 100 Mg Tablet) 100 mg PO QHS [facility] Last Admin: 01/29/23 21:07 Dose: Not Given Sodium Chloride (0.9 % Sodium Chloride 10 Ml Syringe) 10 ml IV Q8 [facility] Last Admin: 01/30/23 04:22 Dose: 10 ml A/P Narrative A/P Narrative: Assessment: *End-stage alcoholic liver cirrhosis *Hepatic encephalopathy *Alcohol abuse *Hypertension *Hyperlipidemia *Bipolar disorder/PTSD Plan: -End-of-life care -Comfort care only -Patient family support -pending placement if remains stable Time Spent With Patient Time: Total time spent is greater than 50% in coordination of care (as documented) at patient's floor/unit and/or counseling patient: QUALITY VTE Deep Vein Thrombosis/Pulmonary Embolism Present on Admission: No
[2023-01-30] MEDS: QUEtiapine 100 MG TABLET PO SCH (21:34)
[2023-01-31] MEDS: LORazepam 2 MG/ML VIAL IV PRN ×3 (01:40→07:39)
[2023-01-31] MEDS: HYDROmorphone 1 MG/ML SYRINGE IV PRN (02:44)
[2023-01-31] MEDS: 0.9 % SODIUM CHLORIDE 10 ML SYRINGE IV SCH (04:08)
[2023-01-31] MEDS: 0.9 % SODIUM CHLORIDE 250 ML IV SCH (05:27)
[2023-01-31] MEDS: OLANZapine 10 MG VIAL IV PRN (05:50)
--- NOTE | 2023-01-31 07:32 | Internal Med Progress Note ---
SUBJECTIVE Subjective Patient information: Note initiated : 01/31/23 at 7:32 am Service Date, if different from initiated Date: [] Patient: Josue Calvin 62 y/o M admitted on 01/23/23 for altered. Chief Complaint: [] Interval history: istory of present illness: 62 years old male with history of end-stage liver cirrhosis, variceal bleed, hepatic encephalopathy noncompliance with lactulose, alcohol abuse who has been on hospice presented to ER after hospice nurse could not find patient medication. Patient was noted to be agitated and confused, hospice nurse tried to find patient medication but was unable to do so and called EMS. EMS gave patient Ativan and ketamine. Patient was noted to be very confused. Work-up showed significantly elevated ammonia of 216 consistent with hepatic encephalopathy. Rest of the lab work was unremarkable. Dr Ortiz had goals of care discussion with patient's POA who wishes to keep patient comfortable on hospice care and does not wish to treat hyperammonemia. Discussed case with Crispin who is the POA, he was a bit frustrated that hospice nurse was not able to keep the patient at home. He stated he would only want patient to be comfort care at this point. 01/24. Last night patient was agitated and was thrashing arms and legs. He required mechanical restraints and was started on Precedex drip. On evaluation patient is calm and resting without agitation on Precedex drip. 01/25. Patient was restless last night, Ativan 2 mg is not touching him. He is with one-to-one sitter and still trying to come out of bed and fall risk. He is saying profanities due to confusion. It is hard to keep him still even in the chair without exposing him to risk of fall. He would benefit from being more comfortable will increase Ativan from 4 to 6 mg, will add olanzapine IM, IV Haldol is not available. 01/26. Overnight patient was restless and agitated was cussing, he received Ativan this morning at around 5 AM and now resting comfortably. He remains on one-to-one sitter. It is unclear why patient is not receiving as needed Ativan. This was discussed in MDT that to keep patient comfortable there should be more liberal use of benzodiazepine and medications that can come him down and added to his comfort. Unfortunately we do not have psychotropic medications and transdermal patch from. There is some reluctance to use Haldol since that will limit his options for placement, case management has received denials from couple of places per report. Placement has been difficult 01/27 Patient seemed a mildly restless this morning. Essentially nonverbal. Discussed case with nurse who has been speaking with POA. Patient is a comfort care only patient. Will review medications and make sure appropriate comfort care medications are available to address any agitation or discomfort. 01/28 Patient sleeping. Appears comfortable. Verbally nonresponsive. 01/29 Patient sleeping and again appears comfortable. Minimally responsive. 01/30 Patient awake but drowsy. Appears comfortable. Responds to voice partially. 01/31 Patient awake but drowsy appears comfortable. Discharge to rehab comfort focus Review of Systems: Unable to obtain given patient's mentation PHYSICAL EXAM General: paritally awake, no acute distress, Eyes/N/T: Head/Neck: neck supple, full ROM, CV: RRR, No murmurs, Pulm: mild b/l rhonchi, no wheezing Abd: soft, nontender, +BS x4 Ext: no clubbing/cyanosis/edema, nontender Skin: warm/dry, normal color Constitutional Vitals: Vital Signs Temp Pulse Resp BP Pulse Ox O2 Del Method O2 Flow Rate 99.9 F H 103 H 15 148/80 89 L Room Air 0 01/30/23 18:46 01/30/23 18:46 01/30/23 18:46 01/30/23 18:46 01/30/23 18:46 01/30/23 19:12 01/24/23 04:00 Period Temp Pulse Resp BP Sys/Hodges Pulse Ox O2 Del Method O2 Flow Rate Last 24 Hr 99.9 F 103-105 15-16 145-148/78-80 88-89 Room Air-Room Air Intake and Output 01/30/23 01/31/23 01/31/23 19:59 03:59 11:59 Output Total 450 450 Balance -450 -450 Intake & Output: Intake & Output 01/30/23 01/31/23 01/31/23 19:59 03:59 11:59 Output Total 450 450 Balance -450 -450 Output: Urine Catheter Amount 450 450 Other: Urine Appearance Clear Clear Uretheral ([place]) Clear Clear Urine Color Tea Colored Dark Maria Luisa Uretheral ([place]) Dark Maria Lusia Dark Maria Luisa Urine Odor Strong OBJ DATA Labs 01/23/23 13:53 Meds: Medications Hydromorphone HCl (Hydromorphone 1 Mg/Ml Syringe) 0.5 - 2 mg IV Q2HP PRN; Protocol PRN Reason: Per Pain Protocol Last Admin: 01/31/23 02:44 Dose: 2 mg Sodium Chloride (Sodium Chloride 0.9%) 250 mls @ 20 mls/hr IV .[id number] [facility] Last Admin: 01/31/23 05:27 Dose: Not Given Lorazepam (Lorazepam 2 Mg/Ml Vial) 0 mg IV Q1HP PRN; Protocol PRN Reason: ANXIETY/SEDATION Last Admin: 01/31/23 04:07 Dose: 6 mg Lorazepam (Lorazepam 2 Mg/Ml Oral.Sharon) 1 - 2 mg SL Q1HP PRN PRN Reason: ANXIETY/SEDATION Last Admin: 01/28/23 14:31 Dose: 1 mg Methocarbamol (Methocarbamol 750 Mg Tablet) 750 mg PO Q8HP PRN PRN Reason: pain, moderate Morphine Sulfate (Morphine 20 Mg/Ml Oral.Conc) 5 - 10 mg SL Q1HP PRN PRN Reason: Pain Last Admin: 01/28/23 14:03 Dose: 10 mg Olanzapine (Olanzapine 10 Mg Vial) 5 mg IV Q6HP PRN PRN Reason: Agitation Last Admin: 01/31/23 05:50 Dose: 5 mg Ondansetron HCl (Ondansetron 4 Mg/2 Ml Vial) 4 mg IV Q4HP PRN; Protocol PRN Reason: Nausea And Vomiting Ondansetron HCl (Ondansetron 4 Mg Odt Tablet) 4 mg SL Q4HP PRN; Protocol PRN Reason: Nausea And Vomiting Quetiapine Fumarate (Quetiapine 100 Mg Tablet) 100 mg PO QHS [facility] Last Admin: 01/30/23 21:34 Dose: Not Given Sodium Chloride (0.9 % Sodium Chloride 10 Ml Syringe) 10 ml IV Q8 [facility] Last Admin: 01/31/23 04:08 Dose: 10 ml A/P Narrative A/P Narrative: Assessment: *End-stage alcoholic liver cirrhosis *Hepatic encephalopathy *Alcohol abuse *Hypertension *Hyperlipidemia *Bipolar disorder/PTSD Plan: -End-of-life care -Comfort care only -Patient family support -pending placement if remains stable Time Spent With Patient Time: Total time spent is greater than 50% in coordination of care (as documented) at patient's floor/unit and/or counseling patient: QUALITY VTE Deep Vein Thrombosis/Pulmonary Embolism Present on Admission: No
[2023-01-31] MEDS: morphine 20 MG/ML ORAL.CONC SL PRN ×4 (07:45→13:05)
[2023-01-31] MEDS: LORazepam 2 MG/ML ORAL.SOL SL PRN ×5 (08:14→13:12)
[2023-02-01 14:12] LABS: Opiate Confirmation Positive
[2023-02-01 14:13] LABS: Cannabinoid Confirmation Positive
== END 2023-01-31 13:36 | DRG 951 ==
LOC: ED 13:29 → ICU 20:21 → MEDSUR 01-24 16:52
PROVIDERS: ADMIT Internal Medicine; ATTEND Internal Medicine